=== PATIENT | female | born 1965 | race Caucasian/White ===

== ENCOUNTER 2017-07-11 08:44 | Inpatient (IN) | payer MEDICAID ==
[~2017-07-11] VITALS: Ht 175.3 cm; Wt 86.0 kg
[~2017-07-11 08:44] MED LIST: CYCL-36 PO; SERT-132 PO
[2017-07-11 08:47] VITALS: BP 132/60; PULSE 78; RESP 24; TEMP 97.6; O2SAT 99
[2017-07-11] MEDS ORDERED: SODIUM CHLOR 0.9% 1000 ML INJ 1,000 ML IV SCH (09:09)
[2017-07-11] MEDS ORDERED: PROCHLORPERAZINE INJ 10 MG/2 ML VIAL IV PUSH ONE (09:15)
[2017-07-11] MEDS ORDERED: HYDROmorphone HCL PF 1 MG/ML VIAL IVS ONE (09:15)
--- NOTE | 2017-07-11 09:25 | PD ---
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 Said he had Pet scan in 02/2017 and was in [place] receiving chemotherapy and radiation therapy last in April 2017. Pt move here in May and has not had her appointment with Dr. Kamara yet. Denies any fever, chest pain, sob,dysuria, hematuria, vaginal bleeding or discharge, focal weakness or numbness. Pt is on oxycodone from primary care Dr. Shelli Leonard but pain is not control currently. Pt had C diff in April. No recent antibiotics. PFSH Past Medical History Blood Disorders: No Anxiety: Yes Cancer: No Cardiovascular Problems: Yes High Cholesterol: Yes Chemotherapy: No Diminished Hearing: No Diverticulitis: Yes Endocrine: No Gastrointestinal Disorders: Yes (GERD, DIVERTICULITIS, CHRONIC DIARRHEA) GERD: Yes Genitourinary: Yes Hepatitis: No Hiatal Hernia: No Immune Disorder: No Kidney Stones: Yes ("SLUDGE IN KIDNEYS") Musculoskeletal: No Neurologic: No Respiratory: Yes Radiation Therapy: No Sleep Apnea: Yes Ulcer: No ?: Not : 5 Para: 2 Miscarriage: 0 : 3 Ovarian Cysts: Yes (3 REMOVED FROM RIGHT OVARY) Tubal Ligation: Yes Past Surgical History Abdominal Surgery: Yes (PARTIAL COLECTOMY DUE TO DIVERTICULITIS AND HERNIA REPAIR WITH GB REMOVAL.) AICD: No Appendectomy: No Arteriovenous Shunt: No Cardiac Surgery: No Section: Yes Cholecystectomy: Yes Ear Surgery: No Endocrine Surgery: No Eye Surgery: No Genitourinary Surgery: No Gynecologic Surgery: Yes (LASER LAP - ENDOMETRIOSIS, 3 OVARIAN CYSTS REMOVED) Insulin Pump: No Joint Replacement: No Oral Surgery: No Pacemaker: No Thoracic Surgery: No Social History Alcohol Use: Yes Tobacco Use: Yes Substance Use: No Allergies-Medications (Allergen,Severity, Reaction): Coded Allergies: diatrizoate meglumine (Unverified Allergy, Severe, HIVES, 12/29/16) REACTION TO IV DYE ONLY (PO CAN TOLERATE) gadobenic acid (Unverified Allergy, Severe, HIVES, 12/29/16) REACTION TO IV DYE ONLY (PO CAN TOLERATE) gadodiamide (Unverified Allergy, Severe, HIVES, 12/29/16) REACTION TO IV DYE ONLY (PO CAN TOLERATE) gadoteridol (Unverified Allergy, Severe, HIVES, 12/29/16) REACTION TO IV DYE ONLY (PO CAN TOLERATE) iodixanol (Unverified Allergy, Severe, HIVES, 12/29/16) REACTION TO IV DYE ONLY (PO CAN TOLERATE) iohexol (Unverified Allergy, Severe, HIVES, 12/29/16) REACTION TO IV DYE ONLY (PO CAN TOLERATE) azithromycin (Unverified Allergy, Mild, HIVES, 12/29/16) Reported Meds & Prescriptions Reported Meds & Active Scripts Active Reported Amitiza (Lubiprostone) 24 Mcg Cap 24 Mg PO BID Hydroxyzine HCl 10 Mg Tab 10 Mg PO TID PRN Prochlorperazine Maleate 5 Mg Tab 5 Mg PO Q6H PRN Oxycodone (Oxycodone HCl) 15 Mg Tab 15 Mg PO Q6HR Lorazepam 0.5 Mg Tab 0.5 Mg PO Q8H PRN Nabumetone 750 Mg Tab 750 Mg PO DAILY Calcium 600+D 200 (Calcium Carbonate-Vitamin D) 600-200 Mg-Unit Tab 1 Tab PO BID Oxycontin (Oxycodone HCl) 30 Mg Tab 30 Mg PO Q12HR Review of Systems Except as stated in HPI: all other systems reviewed are Neg Physical Exam Narrative GENERAL: 52yo F in moderate distress. SKIN: Focused skin assessment warm/dry. HEAD: Atraumatic. Normocephalic. EYES: Pupils equal and round. No scleral icterus. No injection or drainage. ENT: No nasal bleeding or discharge. Mucous membranes pink and moist. NECK: Trachea midline. No JVD. CARDIOVASCULAR: Regular rate and rhythm. No murmur appreciated. RESPIRATORY: No accessory muscle use. Clear to auscultation. Breath sounds equal bilaterally. GASTROINTESTINAL: Abdomen soft, diffuse ttp. No rebound tenderness or guarding. MUSCULOSKELETAL: No obvious deformities. No clubbing. No cyanosis. No edema. NEUROLOGICAL: Awake and alert. No obvious cranial nerve deficits. Motor grossly within normal limits. Normal speech. PSYCHIATRIC: Appropriate mood and affect; insight and judgment normal. Data Data Last Documented VS Vital Signs Date Time Temp Pulse Resp B/P (MAP) Pulse Ox O2 Delivery O2 Flow Rate FiO2 07/11/17 08:47 97.6 78 24 132/60 (84) 99 Orders Orders Complete Blood Count With Diff (07/11/17 09:09) Comprehensive Metabolic Panel (07/11/17 09:09) Lipase (07/11/17 09:09) Urinalysis - C+S If Indicated (07/11/17 09:09) Ct Abd/Pel W/O Iv Contrast (07/11/17 09:09) Sodium Chlor 0.9% 1000 Ml Inj (Ns 1000 M (07/11/17 09:09) Prochlorperazine Inj (Compazine Inj) (07/11/17 09:15) C Diff Toxin Pcr (07/11/17 09:17) Hydromorphone Pf Inj (Dilaudid Pf Inj) (07/11/17 09:30) Ciprofloxacin 400 Mg Premix (Cipro 400 M (07/11/17 12:00) Metronidazole 500 Mg Inj (Flagyl 500 Mg (07/11/17 12:00) Labs Laboratory Tests Test 07/11/17 09:10 White Blood Count 5.2 TH/MM3 Red Blood Count 4.15 MIL/MM3 Hemoglobin 12.6 GM/DL Hematocrit 35.9 % Mean Corpuscular Volume 86.6 FL Mean Corpuscular Hemoglobin 30.4 PG Mean Corpuscular Hemoglobin Concent 35.1 % Red Cell Distribution Width 16.2 % Platelet Count 228 TH/MM3 Mean Platelet Volume 7.1 FL Neutrophils (%) (Auto) 73.9 % Lymphocytes (%) (Auto) 16.5 % Monocytes (%) (Auto) 7.7 % Eosinophils (%) (Auto) 1.3 % Basophils (%) (Auto) 0.6 % Neutrophils # (Auto) 3.9 TH/MM3 Lymphocytes # (Auto) 0.9 TH/MM3 Monocytes # (Auto) 0.4 TH/MM3 Eosinophils # (Auto) 0.1 TH/MM3 Basophils # (Auto) 0.0 TH/MM3 CBC Comment DIFF FINAL Differential Comment Blood Urea Nitrogen 10 MG/DL Creatinine 0.62 MG/DL Random Glucose 93 MG/DL Total Protein 6.4 GM/DL Albumin 3.4 GM/DL Calcium Level 8.6 MG/DL Alkaline Phosphatase 60 U/L Aspartate Amino Transf (AST/SGOT) 29 U/L Alanine Aminotransferase (ALT/SGPT) 14 U/L Total Bilirubin 0.5 MG/DL Sodium Level 127 MEQ/L Potassium Level 4.5 MEQ/L Chloride Level 95 MEQ/L Carbon Dioxide Level 25.7 MEQ/L Anion Gap 6 MEQ/L Estimat Glomerular Filtration Rate 101 ML/MIN Lipase 64 U/L MDM Medical Decision Making Medical Screen Exam Complete: Yes Emergency Medical Condition: Yes Differential Diagnosis Metastatic disease vs. obstruction vs. c diff colitis Narrative Course 52yo F with metastatic small cell carcinoma here with abdominal pain, vomiting and diarrhea. Labs reviewed, no leukocytosis. Mild hyponatremia at 127. Lipase low. CT a/p showed mild thickening of descending and sigmoid portions colon which could represent colitis. Pt given cipro and flagyl IV. Pt given dilaudid and compazine. Pt reevaluated at bedside and is still nauseous. Abdominal pain has improved. Pt unable to tolerate PO so will admit for IV antibiotics and IV hydration. Pt given NS IVF. Discussed with Dr. Milligan and accepted to his service. Diagnosis Primary Impression: Colitis Admitting Information Admitting Physician Requests: Marcy Wilder DO Jul 11, 2017 09:25
[2017-07-11] MEDS ORDERED: HYDROmorphone HCL PF 2 MG/ML VIAL IV PUSH ONE (09:30)
[2017-07-11 09:50] LABS: AUTOMATED NEUTROPHIL # 3.9 TH/MM3 (1.8-7.7); BASOPHIL % 0.6 % (0.0-2.0); EOSINOPHIL # 0.1 TH/MM3 (0-0.4); EOSINOPHIL % 1.3 % (0.0-4.0); HEMATOCRIT 35.9 % (35.0-46.0); HEMOGLOBIN 12.6 GM/DL (11.6-15.3); LYMPH % 16.5 % (9.0-44.0); LYMPHOCYTE # 0.9 TH/MM3 (1.0-4.8); MEAN CELL VOLUME 86.6 FL (80.0-100.0); MEAN CORPUSCULAR HEMOGLOBIN 30.4 PG (27.0-34.0); MEAN CORPUSCULAR HGB CONC 35.1 % (32.0-36.0); MEAN PLATELET VOLUME 7.1 FL (7.0-11.0); MONO % 7.7 % (0.0-8.0); MONOCYTE # 0.4 TH/MM3 (0-0.9); NEUT % 73.9 % (16.0-70.0); PLATELET COUNT 228 TH/MM3 (150-450); RED BLOOD COUNT 4.15 MIL/MM3 (4.00-5.30); RED CELL DISTRIBUTION WIDTH 16.2 % (11.6-17.2); WHITE BLOOD COUNT 5.2 TH/MM3 (4.0-11.0)
[2017-07-11 10:09] LABS: ALT (GPT) 14 U/L (10-53)
[2017-07-11 10:11] LABS: ALKALINE PHOSPHATASE 60 U/L (45-117); TOTAL BILIRUBIN ADULT 0.5 MG/DL (0.2-1.0); TOTAL PROTEIN 6.4 GM/DL (6.4-8.2)
[2017-07-11 10:14] LABS: ALBUMIN 3.4 GM/DL (3.4-5.0); AST (GOT) 29 U/L (15-37); BICARBONATE 25.7 MEQ/L (21.0-32.0); BLOOD UREA NITROGEN 10 MG/DL (7-18); CALCIUM 8.6 MG/DL (8.5-10.1); CHLORIDE 95 MEQ/L (98-107); CREATININE 0.62 MG/DL (0.50-1.00); GLOMERULAR FILTRATION RATE 101 ML/MIN (>89); GLUCOSE,RANDOM 93 MG/DL (74-106); SODIUM (NA) 127 MEQ/L (136-145)
--- NOTE | 2017-07-11 10:28 | RADRPT ---
EXAM DATE/TIME: 07/11/2017 09:44 [facility] COMPARISON: CT ABDOMEN & PELVIS W/O CONTRAST, September 06, 2012, 22:22. INDICATIONS : Diffuse abdominal pain and cramping, loose stools. ORAL CONTRAST: No oral contrast ingested. RADIATION DOSE: 12.63 CTDIvol (mGy) MEDICAL HISTORY : Carcinoma, lung. Carcinoma, bone. Cardiovascular disease SURGICAL HISTORY : Cholecystectomy. Tubal ligation. ENCOUNTER: Initial ACUITY: 3 days PAIN SCALE: 8/10 LOCATION: Bilateral abdominal TECHNIQUE: Volumetric scanning of the abdomen and pelvis was performed. Using automated exposure control and ad justment of the mA and/or kV according to patient size, radiation dose was kept as low as reasonably achievable to obtain optimal diagnostic quality images. DICOM format image data is available electro nically for review and comparison. FINDINGS: LOWER LUNGS: The visualized lower lungs are clear. LIVER: Homogeneous density without lesion. There is no dilation of the biliary tree. No calcified gallston es. SPLEEN: Normal size without lesion. PANCREAS: Within normal limits. KIDNEYS: Normal in size and shape. There is no mass, stone, or hydronephrosis. ADRENAL GLANDS: Within normal limits. VASCULAR: There is no aortic aneurysm. BOWEL/MESENTERY: The patient is status post sigmoid colon surgery with a anastomosis sutures seen in the distal sigmoi d colon region. There some mild thickening of the sigmoid colon and descending colon. There are a few scattered colonic diverticula. Incidental note is made of a duodenal diverticulum. ABDOMINAL WALL: There is hernia mesh seen at the anterior abdominal wall in the upper midline and in the right lower quadrant. No hernia seen. RETROPERITONEUM: There is no lymphadenopathy. BLADDER: No wall thickening or mass. REPRODUCTIVE: Within normal limits. INGUINAL: There is no lymphadenopathy or hernia. MUSCULOSKELETAL: There are large areas of sclerosis seen throughout the thoracic and lumbar spine there is a focal or sclerosis in the posterior right ilium. CONCLUSION: 1. Mild thickening of the descending and sigmoid portions colon which could represent colitis. There are a few scattered colonic diverticula in this region. The patient is status post sigmoid colon rese ction. 2. Prominent areas of sclerosis seen throughout the thoracic and lumbar spine. These are nonspecific. Metastatic lesions can be considered. This appears new when compared to the prior CT examination. 3. Status post hernia surgery with mesh in place. Elder Guy MD on July 11, 2017 at 10:18 Board Certified Radiologist. This report was verified electronically.
[2017-07-11] MEDS ORDERED: CALCTAB19 PO (11:59)
[2017-07-11] MEDS ORDERED: LORA0.5T PO ×2 (11:59→16:07)
[2017-07-11] MEDS ORDERED: PROC5TAB PO (11:59)
[2017-07-11] MEDS ORDERED: OXYC30TA62 PO (11:59)
[2017-07-11] MEDS ORDERED: AMIT24CA9 PO (11:59)
[2017-07-11] MEDS ORDERED: OXYC15TA PO (11:59)
[2017-07-11] MEDS ORDERED: NABU1TAB33 PO (11:59)
[2017-07-11] MEDS ORDERED: HYDR-755 PO (11:59)
[2017-07-11] MEDS ORDERED: metroNIDAZOLE 500 MG INJ 100 ML IV ONE (12:00)
[2017-07-11] MEDS ORDERED: CIPROFLOXACIN 400 MG PREMIX 200 ML IV ONE (12:00)
[2017-07-11 12:20] VITALS: BP 132/65; PULSE 82; RESP 17; O2SAT 96
[2017-07-11 12:29] LABS: BILIRUBIN, URINE NEG (NEG); BLOOD, URINE SMALL (NEG); GLUCOSE,URINE NEG (NEG); KETONE, URINE 10 mg/dL (NEG); MUCUS URINE MANY /lpf (OCC); NITRITE,URINE NEG (NEG); SQUAMOUS EPITHELIAL CELL URINE 10 /hpf (0-5); URINE COLOR YELLOW (YELLW/STRAW); URINE LEUKOCYTE ESTERASE NEG (NEG)
[2017-07-11] MEDS ORDERED: MORPHINE SULFATE 2 MG/ML INJ IV PUSH PRN (12:30)
--- NOTE | 2017-07-11 12:36 | HHI.HP ---
[facility] Shelli Leonard MD Admission Diagnosis Colitis, metastatic disease, dehydration Diagnoses: (1) Colitis Diagnosis: Principal (2) Hyponatremia Diagnosis: Principal Chief Complaint: abdominal pain Travel History International Travel<30 Days: No Contact w/Intl Traveler <30 Da: No Traveled to Known Affected Are: No History of Present Illness patient is a 52 y/o female with history of metastatic lung cancer- s/p chemo and radiation, who presented to ER with abdominal pain. she says that the pain started two days ago. pain is moderate to severe in intensity and colicky in nature. pain was associated with nausea, several episodes of emesis and non- bloody diarrhea. there's no report of fever or chills. she says that her pain medications didn't help her at home. she has a first appointment with this Wednesday. Review of Systems Constitutional: DENIES: Fever, Weight loss, Chills, Night Sweats Eyes: DENIES: Blurred vision, Diplopia, Vision loss, Double Vision Ears, nose, mouth, throat: DENIES: Tinnitus, Vertigo, Throat pain, Epistaxis Respiratory: DENIES: Apneas, Cough, Snoring, Wheezing, Hemoptysis, Sputum production, Shortness of breath Cardiovascular: DENIES: Chest pain, Palpitations, Syncope, Dyspnea on Exertion , PND, Lower Extremity Edema, Orthopnea, Claudication Gastrointestinal: COMPLAINS OF: Abdominal pain, Diarrhea, Nausea, Vomiting, DENIES: Black stools, Bloody stools, Constipation, Difficulty Swallowing, Anorexia Genitourinary: DENIES: Urinary frequency, Urgency, Hematuria, Dysuria Musculoskeletal: DENIES: Joint pain, Muscle aches, Stiffness, Joint Swelling Integumentary: DENIES: Rash Neurologic: DENIES: Abnormal gait, Headache, Localized weakness, Paresthesias, Seizures, Speech Problems, Tremor, Poor Balance Psychiatric: DENIES: Anxiety, Confusion, Mood changes, Depression, Hallucinations, Agitation, Suicidal Ideation, Homicidal Ideation, Delusions Past Family Social History Past Medical History metastatic lung cancer. Past Surgical History colon resection/ hernia repair. Reported Medications Amitiza (Lubiprostone) 24 Mcg Cap 24 Mg PO BID Hydroxyzine HCl 10 Mg Tab 10 Mg PO TID PRN Prochlorperazine Maleate 5 Mg Tab 5 Mg PO Q6H PRN Oxycodone (Oxycodone HCl) 15 Mg Tab 15 Mg PO Q6HR Lorazepam 0.5 Mg Tab 0.5 Mg PO Q8H PRN Nabumetone 750 Mg Tab 750 Mg PO DAILY Calcium 600+D 200 (Calcium Carbonate-Vitamin D) 600-200 Mg-Unit Tab 1 Tab PO BID Oxycontin (Oxycodone HCl) 30 Mg Tab 30 Mg PO Q12HR Allergies: Coded Allergies: diatrizoate meglumine (Unverified Allergy, Severe, HIVES, 12/29/16) REACTION TO IV DYE ONLY (PO CAN TOLERATE) gadobenic acid (Unverified Allergy, Severe, HIVES, 12/29/16) REACTION TO IV DYE ONLY (PO CAN TOLERATE) gadodiamide (Unverified Allergy, Severe, HIVES, 12/29/16) REACTION TO IV DYE ONLY (PO CAN TOLERATE) gadoteridol (Unverified Allergy, Severe, HIVES, 12/29/16) REACTION TO IV DYE ONLY (PO CAN TOLERATE) iodixanol (Unverified Allergy, Severe, HIVES, 12/29/16) REACTION TO IV DYE ONLY (PO CAN TOLERATE) iohexol (Unverified Allergy, Severe, HIVES, 12/29/16) REACTION TO IV DYE ONLY (PO CAN TOLERATE) azithromycin (Unverified Allergy, Mild, HIVES, 12/29/16) Active Ordered Medications Inpatient Medications Ciprofloxacin/ Dextrose 200 ml @ 200 mls/hr ONCE ONCE IV Last administered on 07/11/17at 12:15; Start 07/11/17 at 12:00; Stop 07/11/17 at 12:59 Hydromorphone HCl (Dilaudid Pf Inj) 1 mg ONCE ONCE IV PUSH Last administered on 07/11/17at 09:36; Start 07/11/17 at 09:30; Stop 07/11/17 at 09:31; Status DC Metronidazole 100 ml @ 100 mls/hr ONCE ONCE IV ; Start 07/11/17 at 12:00; Stop 07/11/17 at 12:59 Prochlorperazine Edisylate (Compazine Inj) 10 mg ONCE ONCE IV PUSH Last administered on 07/11/17at 09:35; Start 07/11/17 at 09:15; Stop 07/11/17 at 09:16 ; Status DC Sodium Chloride 1,000 ml @ 1,000 mls/hr Q1H IV Last administered on 07/11/17at 09:36; Start 07/11/17 at 09:09; Stop 07/11/17 at 10:08; Status DC Social History smokes half a pack a day- doesn't drink. Physical Exam Vital Signs Vital Signs Date Time Temp Pulse Resp B/P (MAP) Pulse Ox O2 Delivery O2 Flow Rate FiO2 07/11/17 08:47 97.6 78 24 132/60 (84) 99 Physical Exam GENERAL: This is a well-nourished, well-developed patient, in no apparent distress. SKIN: No rashes, ecchymoses or lesions. Cool and dry. HEAD: Atraumatic. Normocephalic. No temporal or scalp tenderness. EYES: Pupils equal round and reactive. Extraocular motions intact. No scleral icterus. No injection or drainage. ENT: Nose without bleeding, purulent drainage or septal hematoma. Throat without erythema, tonsillar hypertrophy or exudate. Uvula midline. Airway patent. NECK: Trachea midline. No JVD or lymphadenopathy. Supple, nontender, no meningeal signs. CARDIOVASCULAR: Regular rate and rhythm without murmurs, gallops, or rubs. RESPIRATORY: Clear to auscultation. Breath sounds equal bilaterally. No wheezes , rales, or rhonchi. GASTROINTESTINAL: Abdomen soft,with generalized tenderness, nondistended. No hepato-splenomegaly, or palpable masses. No guarding. MUSCULOSKELETAL: Extremities without clubbing, cyanosis, or edema. No joint tenderness, effusion, or edema noted. No calf tenderness. Negative Homans sign bilaterally. NEUROLOGICAL: Awake and alert. Cranial nerves II through XII intact. Motor and sensory grossly within normal limits. Five out of 5 muscle strength in all muscle groups. Normal speech. Laboratory Laboratory Tests Test 07/11/17 09:10 07/11/17 12:15 White Blood Count 5.2 Red Blood Count 4.15 Hemoglobin 12.6 Hematocrit 35.9 Mean Corpuscular Volume 86.6 Mean Corpuscular Hemoglobin 30.4 Mean Corpuscular Hemoglobin Concent 35.1 Red Cell Distribution Width 16.2 Platelet Count 228 Mean Platelet Volume 7.1 Neutrophils (%) (Auto) 73.9 Lymphocytes (%) (Auto) 16.5 Monocytes (%) (Auto) 7.7 Eosinophils (%) (Auto) 1.3 Basophils (%) (Auto) 0.6 Neutrophils # (Auto) 3.9 Lymphocytes # (Auto) 0.9 Monocytes # (Auto) 0.4 Eosinophils # (Auto) 0.1 Basophils # (Auto) 0.0 CBC Comment DIFF FINAL Differential Comment Blood Urea Nitrogen 10 Creatinine 0.62 Random Glucose 93 Total Protein 6.4 Albumin 3.4 Calcium Level 8.6 Alkaline Phosphatase 60 Aspartate Amino Transf (AST/SGOT) 29 Alanine Aminotransferase (ALT/SGPT) 14 Total Bilirubin 0.5 Sodium Level 127 Potassium Level 4.5 Chloride Level 95 Carbon Dioxide Level 25.7 Anion Gap 6 Estimat Glomerular Filtration Rate 101 Lipase 64 Result Diagram: 07/11/1710 07/11/1710 Caprini VTE Risk Assessment Caprini VTE Risk Assessment: Mod/High Risk (score >= 2) Caprini Risk Assessment Model Point Value = 1 Point Value = 2 Point Value = 3 Point Value = 5 Age 41-60 Minor surgery BMI > 25 kg/m2 Swollen legs Varicose veins or History of unexplained or recurrent spontaneous Oral contraceptives or hormone replacement Sepsis (< 1 month) Serious lung disease, including pneumonia (< 1 month) Abnormal pulmonary function Acute myocardial infarction Congestive heart failure (< 1 month) History of inflammatory bowel disease Medical patient at bed rest Age 61-74 Arthroscopic surgery Major open surgery (> 45 min) Laparoscopic surgery (> 45 min) Malignancy Confined to bed (> 72 hours) Immobilizing plaster cast Central venous access Age >= 75 History of VTE Family history of VTE Factor V Leiden Prothrombin [id number] Lupus anticoagulant Anticardiolipin antibodies Elevated serum homocysteine Heparin-induced thrombocytopenia Other congenital or acquired thrombophilia Stroke (< 1 month) Elective arthroplasty Hip, pelvis, or leg fracture Acute spinal cord injury (< 1 month) Prophylaxis Regimen Total Risk Factor Score Risk Level Prophylaxis Regimen 0-1 Low Early ambulation 2 Moderate Order ONE of the following: *Sequential Compression Device (SCD) *Heparin 5000 units SQ BID 3-4 Higher Order ONE of the following medications: *Heparin 5000 units SQ TID *Enoxaparin/Lovenox 40 mg SQ daily (WT < 150 kg, CrCl > 30 mL/min) *Enoxaparin/Lovenox 30 mg SQ daily (WT < 150 kg, CrCl > 10-29 mL/min) *Enoxaparin/Lovenox 30 mg SQ BID (WT < 150 kg, CrCl > 30 mL/min) AND/OR *Sequential Compression Device (SCD) 5 or more Highest Order ONE of the following medications: *Heparin 5000 units SQ TID (Preferred with Epidurals) *Enoxaparin/Lovenox 40 mg SQ daily (WT < 150 kg, CrCl > 30 mL/min) *Enoxaparin/Lovenox 30 mg SQ daily (WT < 150 kg, CrCl > 10-29 mL/min) *Enoxaparin/Lovenox 30 mg SQ BID (WT < 150 kg, CrCl > 30 mL/min) AND *Sequential Compression Device (SCD) Assessment and Plan Assessment and Plan A/P - colitis CT of the abdomen with mild thickening of descending and sigmoid colon. start on clear liquid diet and will advance as tolerated- continue with IV antibiotics- C-diff pending. continue supportive care with antiemetics and pain control as needed; switch to IV Morphine; transition to po meds when able to tolerate po. -hyponatremia- due to lung cancer/ emesis continue with IV fluid and monitor the sodium level. -metastatic lung cancer- had chemo and radiation few months ago- has an appointment with this Wednesday. -DVT prophylaxis with subq Lovenox. Discussed Condition With ER physician and the patient. Physician Certification 2 Midnight Certification Type: Admission for Inpatient Services Order for Inpatient Services The services are ordered in accordance with Medicare regulations or non- Medicare payer requirements, as applicable. In the case of services not specified as inpatient-only, they are appropriately provided as inpatient services in accordance with the 2-midnight benchmark. Estimated LOS (days): 2 days is the estimated time the patient will need to remain in the hospital, assuming treatment plan goals are met and no additional complications. Post-Hospital Plan: Home Dinorah Luong MD Jul 11, 2017 12:36
[2017-07-11] MEDS ORDERED: ONDANSETRON HCL 4 MG/2 ML VIAL IV PUSH PRN (12:45)
[2017-07-11] MEDS ORDERED: ACETAMINOPHEN 325 MG TAB PO PRN (13:00)
[2017-07-11] MEDS: SODIUM CHLOR 0.9% 1000 ML INJ 1,000 ML IV SCH ×2 (13:57→23:00)
[2017-07-11 14:41] VITALS: BP 132/76; PULSE 72; RESP 17; O2SAT 96
[2017-07-11 16:00] VITALS: BP 125/60; PULSE 76; RESP 20; TEMP 99.1; O2SAT 96
[2017-07-11] MEDS ORDERED: SODI1TAB PO (16:04)
[2017-07-11] MEDS: HYDROmorphone HCL PF 2 MG/ML VIAL IV PRN ×2 (17:17→20:55)
[2017-07-11 20:00] VITALS: BP 111/64; PULSE 71; RESP 18; TEMP 97.8; O2SAT 97
[2017-07-11] MEDS: metroNIDAZOLE 500 MG INJ 100 ML IV SCH (20:56)
[2017-07-12] VITALS: BP 91/54; PULSE 66; RESP 18; TEMP 97.8; O2SAT 95
[2017-07-12] MEDS ORDERED: CIPROFLOXACIN 400 MG PREMIX 200 ML IV SCH
[2017-07-12] MEDS: HYDROmorphone HCL PF 2 MG/ML VIAL IV PRN ×6 (00:38→23:26)
[2017-07-12] MEDS: metroNIDAZOLE 500 MG INJ 100 ML IV SCH (04:23)
[2017-07-12] MEDS: ENOXAPARIN SODIUM 40 MG/0.4 ML SYRINGE SQ SCH (07:47)
[2017-07-12] MEDS: PROCHLORPERAZINE INJ 10 MG/2 ML VIAL IV PRN (07:50)
[2017-07-12 08:00] VITALS: BP 96/60; PULSE 64; RESP 19; TEMP 97.3; O2SAT 96
[2017-07-12 08:43] LABS: BICARBONATE 21.3 MEQ/L (21.0-32.0); CALCIUM 7.3 MG/DL (8.5-10.1); CREATININE 0.4 MG/DL (0.50-1.00)
[2017-07-12] MEDS: SODIUM CHLOR 0.9% 1000 ML INJ 1,000 ML IV SCH ×3 (09:00→23:57)
[2017-07-12 09:21] LABS: CALCIUM-PROTEIN CORRECTED 8.3 MG/DL (8.5-10.1); TOTAL PROTEIN 5.3 GM/DL (6.4-8.2)
[2017-07-12 10:58] VITALS: O2SAT 95
--- NOTE | 2017-07-12 11:13 | HHI.PR ---
Subjective Remarks in no acute distress. diarrhea is better. abdominal pain has improved. no nausea/ vomiting- tolerated the clear liquid diet. no fever. d/w the RN. Objective Vitals Vital Signs Date Time Temp Pulse Resp B/P (MAP) Pulse Ox O2 Delivery O2 Flow Rate FiO2 07/12/17 10:58 95 07/12/17 08:15 17 07/12/17 08:00 97.3 64 19 96/60 (72) 96 07/12/17 00:00 97.8 66 18 91/54 (66) 95 07/11/17 20:00 97.8 71 18 111/64 (80) 97 07/11/17 16:00 99.1 76 20 125/60 (81) 96 07/11/17 15:06 07/11/17 14:41 72 17 132/76 (94) 96 Room Air 07/11/17 12:20 82 17 132/65 (87) 96 Room Air I/O 07/11/17 07/11/17 07/11/17 07/12/17 07/12/17 07/12/17 07:00 15:00 23:00 07:00 15:00 23:00 Intake Total 1200 ml 100 ml 300 ml Balance 1200 ml 100 ml 300 ml Intake IV Total 1200 ml 100 ml 300 ml Result Diagram: 07/11/17 0910 07/12/17 0730 Imaging Last Impressions Abdomen/Pelvis CT 07/11/17 0909 Signed Impressions: Service Date/Time: Tuesday, July 11, 2017 09:44 - CONCLUSION: 1. Mild thickening of the descending and sigmoid portions colon which could represent colitis. There are a few scattered colonic diverticula in this region. The patient is status post sigmoid colon resection. 2. Prominent areas of sclerosis seen throughout the thoracic and lumbar spine. These are nonspecific. Metastatic lesions can be considered. This appears new when compared to the prior CT examination. 3. Status post hernia surgery with mesh in place. Elder Guy MD Objective Remarks GENERAL: This is a well-nourished, well-developed patient, in no apparent distress. CARDIOVASCULAR: Regular rate and regular rhythm without murmurs, gallops, or rubs. RESPIRATORY: Clear to auscultation. Breath sounds equal bilaterally. No wheezes , rales, or rhonchi. GASTROINTESTINAL: Abdomen soft, non-tender, nondistended. Normal, active bowel sounds MUSCULOSKELETAL: Extremities without clubbing, cyanosis, or edema. NEURO: Alert & Oriented x4 to person, place, time, situation. Moves all ext x4 Medications and IVs Inpatient Medications Acetaminophen (Tylenol) 650 mg Q4H PRN PO FEVER; Start 07/11/17 at 13:00 Ciprofloxacin/ Dextrose 200 ml @ 200 mls/hr Q12H IV Last administered on at 00:38; Start 07/12/17 at 00:00 Enoxaparin Sodium (Lovenox Inj) 40 mg Q24H SQ Last administered on 07/12/17at 07 :47; Start 07/12/17 at 09:00 Hydromorphone HCl (Dilaudid Pf Inj) 1 mg Q3H PRN IV PAIN 1-10 Last administered on 07/12/17at 10:59; Start 07/11/17 at 15:30 Lorazepam (Ativan) 0.5 mg Q8H PRN PO ANXIETY; Start 07/11/17 at 12:30 Metronidazole 100 ml @ 100 mls/hr Q8H IV Last administered on 07/12/17at 04:23 ; Start 07/11/17 at 21:00 Morphine Sulfate (Morphine Inj) 2 mg Q3H PRN IV PUSH PAIN 1-10; Start 07/11/17 at 12:30; Stop 07/11/17 at 15:19; Status DC Ondansetron HCl (Zofran Inj) 4 mg Q8H PRN IV PUSH NAUSEA; Start 07/11/17 at 12: 45; Stop 07/11/17 at 15:20; Status DC Prochlorperazine Edisylate (Compazine Inj) 10 mg Q8H PRN IV NAUSEA Last administered on 07/12/17at 07:50; Start 07/11/17 at 15:30 Sodium Chloride 1,000 ml @ 100 mls/hr Q10H IV Last administered on 07/11/17at 23:00; Start 07/11/17 at 13:00 A/P Problem List: (1) Colitis ICD Code: K52.9 - Noninfective gastroenteritis and colitis, unspecified Status: Acute (2) Hyponatremia ICD Code: E87.1 - Hypo-osmolality and hyponatremia Assessment and Plan A/P - C-diff colitis CT of the abdomen with mild thickening of descending and sigmoid colon. advance to full liquid- will start on po Vancomycin. continue supportive care with antiemetics and pain control as needed. -hyponatremia- due to lung cancer/ emesis continue with IV fluid and monitor the sodium level. -metastatic lung cancer- had chemo and radiation few months ago- has an appointment with this Wednesday. d/w today; will consult Oncology. -DVT prophylaxis with subq Lovenox. Discharge Planning dc home within the next 24-48 hrs if stable/ with improved sodium level- and after evaluated by Oncology. Dinorah Luong MD Jul 12, 2017 11:13
[2017-07-12] MEDS ORDERED: VANCOMYCIN 500 MG VIAL (FOR ORAL USE ONLY) PO SCH (11:15)
[2017-07-12 12:00] VITALS: BP 101/55; PULSE 60; RESP 18; TEMP 96.9; O2SAT 96
[2017-07-12] MEDS: oxyCODONE HCL 10 MG CONTROLLED RELEASE TAB PO SCH ×2 (12:20→23:57)
[2017-07-12] MEDS: VANCOMYCIN 25 MG/ML SUSP 100 ML BOTTLE PO SCH ×3 (14:05→19:37)
[2017-07-12 16:00] VITALS: BP 111/59; PULSE 64; RESP 18; TEMP 97.8; O2SAT 98
[2017-07-12 20:00] VITALS: BP 129/72; PULSE 72; RESP 18; TEMP 97.9; O2SAT 99
[2017-07-13] VITALS: BP 142/70; PULSE 71; RESP 20; TEMP 97.9; O2SAT 98
[2017-07-13] MEDS: HYDROmorphone HCL PF 2 MG/ML VIAL IV PRN ×5 (04:20→23:02)
[2017-07-13] MEDS: PROCHLORPERAZINE INJ 10 MG/2 ML VIAL IV PRN (04:24)
[2017-07-13 08:00] VITALS: BP 98/53; PULSE 66; RESP 19; TEMP 96.2; O2SAT 95
[2017-07-13 08:07] LABS: BICARBONATE 23.1 MEQ/L (21.0-32.0); CALCIUM 7.8 MG/DL (8.5-10.1); CREATININE 0.39 MG/DL (0.50-1.00)
[2017-07-13] MEDS: VANCOMYCIN 25 MG/ML SUSP 100 ML BOTTLE PO SCH ×4 (09:38→20:09)
[2017-07-13] MEDS: ENOXAPARIN SODIUM 40 MG/0.4 ML SYRINGE SQ SCH (09:38)
[2017-07-13] MEDS ORDERED: diphenhydrAMINE HCL 50 MG CAP PO ONE ×2 (09:45→12:45)
--- NOTE | 2017-07-13 11:16 | MB ---
cc: Tayo Kamara MD, Leslie D MD DATE OF CONSULT: 07/13/2017 PRIMARY CARE PHYSICIAN: Shelli Leonard MD, in [place]. REASON FOR CONSULTATION: Patient with a diagnosis of metastatic small cell carcinoma of lung primary (extensive stage). Initially diagnosed in 02/2017 while the patient was still living in [place], [place]. TREATMENT HISTORY TO DATE: Patient is status post 3 cycles of cisplatin/etoposide (chemotherapy delivered in February, March, and 04/2017). Patient has also been on monthly Xgeva injections. She received palliative radiation to her hips bilaterally for management of symptomatic bony metastases. CHIEF COMPLAINT: Ms. Moncada reports having had diarrhea for the past 1 week. She presented to [facility] on 07/11/2017 for further workup and management. ADDITIONAL COMPLAINTS: Include pain in her left shoulder, inability to lift her left arm. She reports back pain, rib pain and hip pain as well. HISTORY OF PRESENT ILLNESS: Ms. Moncada is a very pleasant 52-year-old female with a 40+ pack-year history of smoking. Ms. Moncada, who is originally from [facility], had recently relocated to [place], [place], in the summer of 2016 to be with a male medical assistant ob gyn. While up in [place], she began to notice chronic cough, and eventually, the cough began to produce blood-tinged sputum. She presented to a hospital in [place], [place], in 02/2017 and underwent imaging studies. She was found to have a mass involving her right lung. Further imaging studies including PET CT scan revealed diffuse hypermetabolic activity involving the vertebral bodies, as well as her hips. The primary tumor in the right lung was hypermetabolic as well. Image-guided biopsy of one of the bony lesions revealed findings consistent with small cell carcinoma of lung primary. The patient reports undergoing imaging studies of the brain to complete the staging workup, and at initial diagnosis in 02/2017, she had no evidence of brain metastases. She was treated with above-outlined systemic chemotherapeutic regimen and received palliative radiation to her hips. The patient chose to relocate to [place] in early 05/2017. She was awaiting outpatient oncology evaluation when she presented to this hospital. In fact, this patient was scheduled to see me later this morning at [facility]. Additional noteworthy medical comorbid conditions include C. diff colitis, which was diagnosed in [place] and treated in the fall of 2016. PAST MEDICAL HISTORY: 1. Metastatic small cell carcinoma of the lung. 2. Fibromyalgia. 3. Tobaccoism. 4. Bony metastases. 5. Gestational diabetes. 6. Diverticulitis. 7. History of C. diff colitis. PAST SURGICAL HISTORY: 1. Cholecystectomy. 2. . 3. Hernia repair (ventral). 4. In 2007 colon resection. 5. Infusion port placement. 6. Image-guided biopsy of bone lesion. FAMILY HISTORY: Father of metastatic prostate cancer at the age of 60. Mom of complications of stroke. No known oncologic diagnoses noted. HEALTH MAINTENANCE: 1. Most recent mammogram was about 3 years ago. 2. Most recent colonoscopy was about 8 years ago. SOCIAL HISTORY: Patient lives at home alone. She has 2 children aged 18 and 24. She presently lives with one of her friends. She is on disability. 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 GYNECOLOGIC HISTORY: 5, para 2 (she had 3 abortions and 2 live births). ALLERGIES: MORPHINE, ZOFRAN, CODEINE AND CT CONTRAST MEDIUM. CURRENT INPATIENT MEDICATIONS: 1. Vancomycin 125 mg p.o. q.i.d. 2. Oxycodone 30 mg p.o. q.12 hours (long-acting). 3. Lorazepam 0.5 mg p.o. q.8 hours as needed for anxiety. 4. Dilaudid 1 mg IV q.4 hours as needed for pain. 5. Lovenox 40 mg subcutaneous q.24 hours. 6. Normal saline 100 mL/hour. REVIEW OF SYSTEMS: A 13-point review of systems are obtained. The following are the pertinent positives and negatives: CONSTITUTIONAL: Ms. Moncada reports fatigue, weakness. She denies fevers or chills. HEENT: Reports headaches. She denies blurry vision, difficulty swallowing, soreness in the throat or nosebleeds. RESPIRATORY: She reports difficulty breathing with exertion. She denies hemoptysis. She denies throat or chest pain. CARDIOVASCULAR: Denies angina-like chest pain, PND, orthopnea. She denies lower extremity edema. GASTROINTESTINAL: Denies nausea, vomiting, abdominal pain, but she does report diarrhea. She denies hematochezia or melena. URINARY AND GENITAL: No complaints. CENTRAL NERVOUS SYSTEM: Denies any focal sensory or motor deficits. SKIN: No suspect lesions reported. MUSCULOSKELETAL: She reports pain in her shoulders, back, ribs, and hips. No other complaints reports. PHYSICAL EXAMINATION: VITAL SIGNS: Temperature 96.2 degrees Fahrenheit, heart rate 66 beats per minute. Respiratory rate is 19. Blood pressure is 98/53. O2 sats are 95% on room air. GENERAL APPEARANCE: Ms. Moncada is a middle-aged lady. She is sitting up in bed. She appears to be in no acute distress. She has some alopecia of chemotherapy. HEENT: Head is atraumatic, normocephalic. Conjunctivae are pale. Sclerae are anicteric. EOMI. PERRLA. Oral exam: No pharyngeal erythema. NECK: No palpable cervical or supraclavicular lymphadenopathy. RESPIRATORY: Good air movement bilaterally over the upper, middle and lower lung zones with prolonged expiratory phase, occasional/scattered rhonchi. CARDIOVASCULAR: Regular rate and rhythm, S1, S2. No obvious murmurs, rubs, gallops. ABDOMEN: Protuberant belly, soft and nontender, nondistended. No palpable organ enlargement. LOWER EXTREMITIES: No pretibial edema. No calf tenderness. CENTRAL NERVOUS SYSTEM: No focal sensory or motor deficits. MUSCULOSKELETAL: She reports some tenderness on her left shoulder. No edema noted. LABORATORY FINDINGS: Blood work dated 07/11/2017: WBC count 5.2, hemoglobin 12.6 g/dL, hematocrit 36%, platelet count 228. Absolute neutrophil count is 3.9. Chemistries: Sodium 126, potassium 3.6, chloride 96. Bicarbonate is 23, BUN 3, creatinine 0.4. EGFR is 172. Random glucose 83. Calcium 7.8. Total bilirubin 0.5, AST 29, ALP 14, alkaline phosphatase 60, albumin 3.4. TSH is 0.75. IMAGING STUDIES: CT scan of the abdomen and pelvis without IV contrast reveals mild thickening of the descending and sigmoid portions of the colon, which could represent colitis. There are a few scattered colonic diverticula in this region. She appears to have a partial colonic resection performed in the past. There are prominent areas of sclerosis seen throughout the thoracic and lumbar spine. These are not specific; however, metastatic lesions can be considered. Status post hernia surgery with mesh in place. MICROBIOLOGY: Stool studies are positive for C. diff colitis toxin PCR. ASSESSMENT: Ms. Moncada is a very pleasant 52-year-old female who was diagnosed with metastatic small cell carcinoma of lung primary in 02/2017; she was living in [place], [place]. Her treatment has consisted of 3 cycles of cisplatin and etoposide and palliative radiation to symptomatic bony metastases involving her pelvic bones and hips. She does have pathologic confirmation of metastatic disease to her bones. This patient relocated back to [place] from [place] in 05/2017 and was awaiting outpatient oncology consultation for resumption of systemic therapy. She was admitted to this hospital with symptoms of diarrhea. She was found to have stool positive for Clostridium difficile colitis and has been initiated on therapy. The patient tells me this has been her second episode of Clostridium difficile colitis over the past 4 months. I have been asked to her to help facilitate transition of care to the outpatient setting and resumption of palliative systemic therapy. RECOMMENDATIONS: 1. Metastatic small cell carcinoma of lung primary: I have requested an outpatient followup at the time of discharge. I would like her to undergo restaging studies with a PET CT scan at discharge, along with restaging imaging of the brain to assess for intracranial metastases. 2. I will likely transition her from the cisplatin and etoposide to carboplatin and etoposide because carboplatin has a more favorable toxicity profile and is essentially as effective as cisplatin in this setting. 3. She will be resumed on Xgeva or Zometa for management for bony metastases to help reduce the risk of pathologic fractures. 4. C. diff colitis: Agree with oral vancomycin. MD MICHELLE Nassar/KELECHI , 09:19 AM , 11:14 AM
[2017-07-13] MEDS: oxyCODONE HCL 10 MG CONTROLLED RELEASE TAB PO SCH (11:55)
[2017-07-13 12:00] VITALS: BP 119/64; PULSE 61; RESP 19; TEMP 97.4; O2SAT 99
--- NOTE | 2017-07-13 13:40 | RADRPT ---
EXAM DATE/TIME: 07/13/2017 10:50 [facility] COMPARISON: No previous studies available for comparison. INDICATIONS : Left arm swelling. MEDICAL HISTORY : Hypercholesterolemia. Diverticulitis. Gastroesophageal reflux disease. Clostridium Difficile. Kidney stones. Urinary tract infection. Liver disease. Anxiety. SURGICAL HISTORY : Tubal ligation. Ovarian cysts removed. Colon resection. ENCOUNTER: Initial ACUITY: 1 day PAIN SCORE: 3/10 LOCATION: Left arm. FINDINGS: There is spontaneous flow documented in the brachial, basilic, cephalic, axillary, and subclavian vei ns. The vessels are compressible and augmentation response is documented. No filling defects are se en. The flow is phasic with respiration. Direction of flow in the jugular vein is caudal. There is a slight less than 4 cm x 6-7 mm (long axis by short axis) lenticular collection in the ante rior left shoulder soft tissues which may be hematoma or complex bursal collection. This could be fur ther evaluated with MRI if clinically indicated. CONCLUSION: No evidence of left arm DVT Complex lenticular collection in the soft tissues of the anterior left shoulder region Elder Arndt MD on July 13, 2017 at 13:36 Board Certified Radiologist. This report was verified electronically.
--- NOTE | 2017-07-13 13:57 | HHI.PR ---
Subjective Remarks Follow-up C. difficile colitis 07/13/17-patient seen and examined, denies any diarrheal episode 2 days. Would like her diet advanced to more solid 1. Seen this morning by medical oncology. Objective Vitals Vital Signs Date Time Temp Pulse Resp B/P (MAP) Pulse Ox O2 Delivery O2 Flow Rate FiO2 07/13/17 12:00 97.4 61 19 119/64 (82) 99 07/13/17 08:00 96.2 66 19 98/53 (68) 95 07/13/17 04:50 18 07/13/17 00:57 18 07/13/17 00:00 97.9 71 20 142/70 (94) 98 07/12/17 20:00 97.9 72 18 129/72 (91) 99 07/12/17 16:00 97.8 64 18 111/59 (76) 98 I/O 07/12/17 07/12/17 07/12/17 07/13/17 07/13/17 07/13/17 07:00 15:00 23:00 07:00 15:00 23:00 Intake Total 300 ml 680 ml 1480 ml Output Total 4 ml Balance 300 ml 676 ml 1480 ml Intake Oral 680 ml 480 ml IV Total 300 ml 1000 ml Output Urine Total 4 ml # Voids 2 # Bowel Movements 0 Result Diagram: 07/11/1710 07/13/17 0559 Imaging Last Impressions Abdomen/Pelvis CT 07/11/17 0909 Signed Impressions: Service Date/Time: Tuesday, July 11, 2017 09:44 - CONCLUSION: 1. Mild thickening of the descending and sigmoid portions colon which could represent colitis. There are a few scattered colonic diverticula in this region. The patient is status post sigmoid colon resection. 2. Prominent areas of sclerosis seen throughout the thoracic and lumbar spine. These are nonspecific. Metastatic lesions can be considered. This appears new when compared to the prior CT examination. 3. Status post hernia surgery with mesh in place. Elder Guy MD Objective Remarks GENERAL: NAD SKIN: Warm and dry. HEAD: Normocephalic. EYES: No scleral icterus. No injection or drainage. NECK: Supple, trachea midline. No JVD or lymphadenopathy. CARDIOVASCULAR: Regular rate and rhythm without murmurs, gallops, or rubs. RESPIRATORY: Breath sounds equal bilaterally. No accessory muscle use. GASTROINTESTINAL: Abdomen soft, non-tender, nondistended. MUSCULOSKELETAL: No cyanosis, or edema. BACK: Nontender without obvious deformity. No CVA tenderness. A/P Problem List: (1) C. difficile colitis ICD Code: A04.72 - Enterocolitis due to Clostridium difficile, not specified as recurrent (2) Colitis ICD Code: K52.9 - Noninfective gastroenteritis and colitis, unspecified Status: Acute (3) Hyponatremia ICD Code: E87.1 - Hypo-osmolality and hyponatremia (4) Breast cancer ICD Code: C50.919 - Malignant neoplasm of unspecified site of unspecified female breast Assessment and Plan 52-year-old female with - C-diff colitis CT of the abdomen with mild thickening of descending and sigmoid colon. Currently on PO Vancomycin. continue supportive care with antiemetics and pain control as needed. -Hypotonic Hyponatremia- due to lung cancer/ emesis continue with IV fluid and monitor the sodium level. -Metastatic lung cancer Appreciate input from medical oncology Brain MRI pending -DVT prophylaxis with subq Lovenox. Joni Brown MD Jul 13, 2017 13:57
[2017-07-13] MEDS ORDERED: hydrOXYzine HCL 10 MG TAB PO PRN (14:00)
[2017-07-13] MEDS: SODIUM CHLOR 0.9% 1000 ML INJ 1,000 ML IV SCH (14:49)
[2017-07-13 16:00] VITALS: BP 123/68; PULSE 67; RESP 19; TEMP 97.1; O2SAT 99
[2017-07-13] MEDS: LORazepam 0.5 MG TAB PO PRN (17:06)
[2017-07-13 17:41] VITALS: O2SAT 99
[2017-07-13] MEDS ORDERED: GADODIAMIDE PF 287 MG/ML 5 ML VIAL (for RAD MRI) IV PUSH ONE (17:56)
--- NOTE | 2017-07-13 18:35 | RADRPT ---
EXAM DATE/TIME: 07/13/2017 17:46 [facility] COMPARISON: No previous studies available for comparison. INDICATIONS : Metastatic disease. CONTRAST: 17 cc Omniscan (gadodiamide) IV MEDICAL HISTORY : Carcinoma, lung. Metastatic disease. SURGICAL HISTORY : Colon resection. section. Cholecystectomy. Hernia. ENCOUNTER: Subsequent ACUITY: 1 day PAIN SCORE: 5/10 LOCATION: cranial TECHNIQUE: Multiplanar, multisequence MRI of the brain was performed both prior to and following the administrat ion of paramagnetic contrast. FINDINGS: MRI of the brain is performed in sagittal, axial and coronal planes. The craniocervical junction and midline structures are unremarkable. Diffusion weighted images demonstrate small punctate areas of T2 shine through involving the cerebellar vermis, middle cerebellar peduncle in the periventricular whi te matter on the right. There is no evidence of acute cortical infarction, acute hemorrhage, mass eff ect or midline shift is seen. Posterior fossa structures are unremarkable. CONCLUSION: Probable small areas of white matter infarction as above. No evidence of metastatic disease. Manpreet Loera MD on July 13, 2017 at 18:28 Board Certified Radiologist. This report was verified electronically.
[2017-07-13 20:00] VITALS: BP 130/69; PULSE 71; RESP 20; TEMP 98.4; O2SAT 96
[2017-07-14] VITALS: BP 125/78; PULSE 72; RESP 20; TEMP 98.7; O2SAT 95
[2017-07-14] MEDS: oxyCODONE HCL 10 MG CONTROLLED RELEASE TAB PO SCH (00:40)
[2017-07-14] MEDS: SODIUM CHLOR 0.9% 1000 ML INJ 1,000 ML IV SCH ×2 (00:43→09:07)
[2017-07-14] MEDS: LORazepam 0.5 MG TAB PO PRN (00:45)
[2017-07-14] MEDS: HYDROmorphone HCL PF 2 MG/ML VIAL IV PRN ×2 (03:26→07:11)
[2017-07-14] MEDS: PROCHLORPERAZINE INJ 10 MG/2 ML VIAL IV PRN (03:26)
[2017-07-14 08:00] VITALS: BP 93/55; PULSE 55; RESP 16; TEMP 97.9; O2SAT 95
[2017-07-14 08:44] LABS: BICARBONATE 24.8 MEQ/L (21.0-32.0); CREATININE 0.45 MG/DL (0.50-1.00)
[2017-07-14] MEDS ORDERED: SODIUM CHLORIDE 1 GRAM TAB PO SCH (09:00)
[2017-07-14] MEDS: ENOXAPARIN SODIUM 40 MG/0.4 ML SYRINGE SQ SCH (09:09)
[2017-07-14] MEDS: VANCOMYCIN 25 MG/ML SUSP 100 ML BOTTLE PO SCH (09:09)
[2017-07-14] MEDS ORDERED: VANC1CAP6 PO ×2 (11:45)
--- NOTE | 2017-07-14 12:31 | HHI.PR ---
Subjective Remarks Follow-up C. difficile colitis 07/13/17-patient seen and examined, denies any diarrheal episode 2 days. Would like her diet advanced to more solid 1. Seen this morning by medical oncology. 07/14/17-patient seen and examined, denies any abdominal pain, no diarrhea 3 days. Brain MRI report discussed with patient and no acute finding. Case discussed with oncology. Objective Vitals Vital Signs Date Time Temp Pulse Resp B/P (MAP) Pulse Ox O2 Delivery O2 Flow Rate FiO2 07/14/17 08:00 97.9 55 16 93/55 (68) 95 07/14/17 00:00 98.7 72 20 125/78 (94) 95 07/13/17 20:00 98.4 71 20 130/69 (89) 96 07/13/17 17:41 99 21 07/13/17 16:00 97.1 67 19 123/68 (86) 99 I/O 07/13/17 07/13/17 07/13/17 07/14/17 07/14/17 07/14/17 07:00 15:00 23:00 07:00 15:00 23:00 Intake Total 1480 ml 1000 ml 1554 ml 856 ml 200 ml Balance 1480 ml 1000 ml 1554 ml 856 ml 200 ml Intake Oral 480 ml 1050 ml 360 ml IV Total 1000 ml 1000 ml 504 ml 496 ml 200 ml # Voids 2 8 2 # Bowel Movements 0 2 0 Result Diagram: 07/11/17 0910 07/14/17 0729 Imaging Last Impressions Upper Extremity Ultrasound 07/13/17 0000 Signed Impressions: Service Date/Time: Thursday, July 13, 2017 10:50 - CONCLUSION: No evidence of left arm DVT Complex lenticular collection in the soft tissues of the anterior left shoulder region Elder Arndt MD Brain MRI 07/13/17 0000 Signed Impressions: Service Date/Time: Thursday, July 13, 2017 17:46 - CONCLUSION: Probable small areas of white matter infarction as above. No evidence of metastatic disease. Manpreet Loera MD Abdomen/Pelvis CT 07/11/17 0909 Signed Impressions: Service Date/Time: Tuesday, July 11, 2017 09:44 - CONCLUSION: 1. Mild thickening of the descending and sigmoid portions colon which could represent colitis. There are a few scattered colonic diverticula in this region. The patient is status post sigmoid colon resection. 2. Prominent areas of sclerosis seen throughout the thoracic and lumbar spine. These are nonspecific. Metastatic lesions can be considered. This appears new when compared to the prior CT examination. 3. Status post hernia surgery with mesh in place. Elder Guy MD Objective Remarks GENERAL: NAD SKIN: Warm and dry. HEAD: Normocephalic. EYES: No scleral icterus. No injection or drainage. NECK: Supple, trachea midline. No JVD or lymphadenopathy. CARDIOVASCULAR: Regular rate and rhythm without murmurs, gallops, or rubs. RESPIRATORY: Breath sounds equal bilaterally. No accessory muscle use. GASTROINTESTINAL: Abdomen soft, non-tender, nondistended. MUSCULOSKELETAL: No cyanosis, or edema. BACK: Nontender without obvious deformity. No CVA tenderness. Procedures none A/P Problem List: (1) C. difficile colitis ICD Code: A04.72 - Enterocolitis due to Clostridium difficile, not specified as recurrent (2) Colitis ICD Code: K52.9 - Noninfective gastroenteritis and colitis, unspecified Status: Acute (3) Hyponatremia ICD Code: E87.1 - Hypo-osmolality and hyponatremia (4) Breast cancer ICD Code: C50.919 - Malignant neoplasm of unspecified site of unspecified female breast Assessment and Plan 52-year-old female with - C-diff colitis CT of the abdomen with mild thickening of descending and sigmoid colon. Currently on PO Vancomycin. continue supportive care with antiemetics and pain control as needed. -Hypotonic Hyponatremia- due to lung cancer/ emesis continue with IV fluid and monitor the sodium level. -Metastatic lung cancer Appreciate input from medical oncology. Patient will need outpatient follow- up with oncology to resume chemotherapy next week Brain MRI noted and review -DVT prophylaxis with subq Lovenox. Joni Brown MD Jul 14, 2017 12:30
--- NOTE | 2017-07-14 12:32 | HHI.DS ---
Discharge Summary Admission Date Jul 11, 2017 at 12:27 Discharge Date: Jul 14, 2017 Admitting Diagnosis Colitis, metastatic disease, dehydration (1) C. difficile colitis ICD Code: A04.72 - Enterocolitis due to Clostridium difficile, not specified as recurrent (2) Colitis ICD Code: K52.9 - Noninfective gastroenteritis and colitis, unspecified Status: Acute (3) Hyponatremia ICD Code: E87.1 - Hypo-osmolality and hyponatremia (4) Breast cancer ICD Code: C50.919 - Malignant neoplasm of unspecified site of unspecified female breast Procedures none Brief History - From Admission patient is a 52 y/o female with history of metastatic lung cancer- s/p chemo and radiation, who presented to ER with abdominal pain. she says that the pain started two days ago. pain is moderate to severe in intensity and colicky in nature. pain was associated with nausea, several episodes of emesis and non- bloody diarrhea. there's no report of fever or chills. she says that her pain medications didn't help her at home. she has a first appointment with this Wednesday. CBC/BMP: 07/11/17 0910 07/14/17 0729 Significant Findings Laboratory Tests Test 07/11/17 16:13 07/12/17 07:30 07/12/17 14:20 07/13/17 05:59 Stool C. difficile Toxin (PCR) POSITIVE (NEGATIVE) Blood Urea Nitrogen 5 MG/DL (7-18) 3 MG/DL (7-18) Creatinine 0.40 MG/DL (0.50-1.00) 0.39 MG/DL (0.50-1.00) Total Protein 5.3 GM/DL (6.4-8.2) Calcium Level 7.3 MG/DL (8.5-10.1) 7.8 MG/DL (8.5-10.1) Sodium Level 125 MEQ/L (136-145) 126 MEQ/L (136-145) Chloride Level 95 MEQ/L (98-107) 96 MEQ/L (98-107) Serum Osmolality 255 MOSM/KG (275-295) Protein Corrected Calcium 8.3 MG/DL (8.5-10.1) Test 07/14/17 07:29 Blood Urea Nitrogen 4 MG/DL (7-18) Creatinine 0.45 MG/DL (0.50-1.00) Calcium Level 8.0 MG/DL (8.5-10.1) Sodium Level 127 MEQ/L (136-145) Chloride Level 95 MEQ/L (98-107) Imaging Last Impressions Upper Extremity Ultrasound 07/13/17 0000 Signed Impressions: Service Date/Time: Thursday, July 13, 2017 10:50 - CONCLUSION: No evidence of left arm DVT Complex lenticular collection in the soft tissues of the anterior left shoulder region Elder Arndt MD Brain MRI 07/13/17 0000 Signed Impressions: Service Date/Time: Thursday, July 13, 2017 17:46 - CONCLUSION: Probable small areas of white matter infarction as above. No evidence of metastatic disease. Manpreet Loera MD Abdomen/Pelvis CT 07/11/17 0909 Signed Impressions: Service Date/Time: Tuesday, July 11, 2017 09:44 - CONCLUSION: 1. Mild thickening of the descending and sigmoid portions colon which could represent colitis. There are a few scattered colonic diverticula in this region. The patient is status post sigmoid colon resection. 2. Prominent areas of sclerosis seen throughout the thoracic and lumbar spine. These are nonspecific. Metastatic lesions can be considered. This appears new when compared to the prior CT examination. 3. Status post hernia surgery with mesh in place. Elder Guy MD PE at Discharge GENERAL: NAD SKIN: Warm and dry. HEAD: Normocephalic. EYES: No scleral icterus. No injection or drainage. NECK: Supple, trachea midline. No JVD or lymphadenopathy. CARDIOVASCULAR: Regular rate and rhythm without murmurs, gallops, or rubs. RESPIRATORY: Breath sounds equal bilaterally. No accessory muscle use. GASTROINTESTINAL: Abdomen soft, non-tender, nondistended. MUSCULOSKELETAL: No cyanosis, or edema. BACK: Nontender without obvious deformity. No CVA tenderness. Hospital Course While in hospital, patient was treated for - C-diff colitis CT of the abdomen with mild thickening of descending and sigmoid colon. She was started on PO Vancomycin and she will be discharged on tapered dose. Treated with supportive care with antiemetics and pain control as needed. -Hypotonic Hyponatremia- due to lung cancer/ emesis Improved with IV fluid as well as sodium tablet -Metastatic lung cancer Appreciate input from medical oncology. Patient will need outpatient follow- up with oncology to resume chemotherapy next week Brain MRI noted and review and no evidence of metastasis disease -DVT prophylaxis with subq Lovenox. Pt Condition on Discharge: Good Discharge Disposition: Discharge Home Discharge Time: <= 30 minutes Discharge Instructions DIET: Follow Instructions for: As Tolerated, No Restrictions Activities you can perform: Regular-No Restrictions Follow up Referrals: Oncology - 1 Week PCP Follow-up - 1 Week New Medications: Vancomycin (Vancocin) 125 Mg Cap 125 MG PO QID for Infection, #28 CAP 0 Refills Vancomycin (Vancocin) 125 Mg Cap 125 MG PO BID for Infection, #14 CAP 0 Refills Continued Medications: Calcium Carbonate-Vitamin D (Calcium 600+D 200) 600-200 Mg-Unit Tab 1 TAB PO BID for Nutritional Supplement, TAB 0 Refills Hydroxyzine HCl (Hydroxyzine HCl) 10 Mg Tab 10 MG PO TID PRN for itching, TAB 0 Refills Lorazepam (Lorazepam) 0.5 Mg Tab 0.5 MG PO Q8H PRN for ANXIETY, TAB 0 Refills Lubiprostone (Amitiza) 24 Mcg Cap 24 MG PO BID for Constipation, CAP 0 Refills Nabumetone (Nabumetone) 750 Mg Tab 750 MG PO DAILY for Pain-Inflammation, #60 TAB 0 Refills Oxycodone (Oxycodone) 15 Mg Tab 15 MG PO Q6HR for Pain Management, TAB 0 Refills Oxycodone ER (Oxycontin) 30 Mg Tab 30 MG PO Q12HR for Pain Management, TAB 0 Refills Prochlorperazine Maleate (Prochlorperazine Maleate) 5 Mg Tab 5 MG PO Q6H PRN for NAUSEA OR VOMITING, TAB 0 Refills Sodium Chloride (Sodium Chloride) 1 Gram Tab 1 GM PO DAILY for Electrolyte Replacement, TAB 0 Refills Joni Brown MD Jul 14, 2017 12:32
== END 2017-07-14 11:41 | disposition home or self-care (01) | DRG 372 ==
LOC: NEPE 08:44 → NEDA 12:12 → OBSVTOIN 12:27 → N07A 15:05
PROVIDERS: ADMIT Hospitalist; ATTEND Hospitalist
DX: A04.71 Enterocolitis due to Clostridium difficile, recurrent (principal); E87.1 Hypo-osmolality and hyponatremia; C78.7 Secondary malignant neoplasm of liver and intrahepatic bile duct; C79.51 Secondary malignant neoplasm of bone; C34.90 Malignant neoplasm of unspecified part of unspecified bronchus or lung; E86.0 Dehydration; F41.9 Anxiety disorder, unspecified; F17.210 Nicotine dependence, cigarettes, uncomplicated; E78.00 Pure hypercholesterolemia, unspecified; K21.9 Gastro-esophageal reflux disease without esophagitis; G47.30 Sleep apnea, unspecified; M79.7 Fibromyalgia; M25.512 Pain in left shoulder; M54.9 Dorsalgia, unspecified; R07.81 Pleurodynia; Z92.3 Personal history of irradiation; Z92.21 Personal history of antineoplastic chemotherapy
CPT/HCPCS: 70553; 74176; 76937; 80048; 80053; 81001; 83690; 83930; 83935; 84155; 84443; 85025; 87493; 87506; 93971; 96361; 96374; 96375; A9579; J0744; J0780; J1170; J1650; J7030; Q0163

== ENCOUNTER 2017-08-15 21:03 | Inpatient (IN) | payer MEDICAID ==
[~2017-08-15] VITALS: Ht 165.1 cm; Wt 76.6 kg
[~2017-08-15 21:03] MED LIST changes: +AMIT24CA9 PO; +CALCTAB19 PO; -CYCL-36 PO; +HYDR-755 PO; +LORA0.5T PO; +NABU1TAB33 PO; +OXYC15TA PO; +OXYC30TA62 PO; +PROC5TAB PO; -SERT-132 PO; +SODI1TAB PO; +VANC1CAP6 PO
[2017-08-15 21:49] VITALS: BP 139/64; PULSE 71; RESP 18; TEMP 98.1; O2SAT 100
[2017-08-15 22:05] VITALS: BP 124/75; PULSE 69; RESP 18; TEMP 98; O2SAT 100
[2017-08-15] MEDS ORDERED: FENT1DIS35 T-DERMAL (22:05)
[2017-08-15] MEDS ORDERED: PROCHLORPERAZINE INJ 10 MG/2 ML VIAL IV PUSH ONE (22:30)
[2017-08-15] MEDS ORDERED: SODIUM CHLOR 0.9% 1000 ML INJ 1,000 ML IV ONE (22:30)
[2017-08-15] MEDS ORDERED: HYDROmorphone HCL PF 2 MG/ML VIAL IV PUSH ONE (22:30)
[2017-08-15 23:05] LABS: AUTOMATED NEUTROPHIL # 2.5 TH/MM3 (1.8-7.7); BASOPHIL % 0.4 % (0.0-2.0); EOSINOPHIL % 0.7 % (0.0-4.0); HEMATOCRIT 39.1 % (35.0-46.0); HEMOGLOBIN 13.7 GM/DL (11.6-15.3); LYMPH % 14.9 % (9.0-44.0); LYMPHOCYTE # 0.5 TH/MM3 (1.0-4.8); MEAN CELL VOLUME 83.9 FL (80.0-100.0); MEAN CORPUSCULAR HEMOGLOBIN 29.4 PG (27.0-34.0); MEAN PLATELET VOLUME 6.9 FL (7.0-11.0); MONO % 9.3 % (0.0-8.0); MONOCYTE # 0.3 TH/MM3 (0-0.9); NEUT % 74.7 % (16.0-70.0); PLATELET COUNT 173 TH/MM3 (150-450); RED BLOOD COUNT 4.66 MIL/MM3 (4.00-5.30); RED CELL DISTRIBUTION WIDTH 14.2 % (11.6-17.2); WHITE BLOOD COUNT 3.4 TH/MM3 (4.0-11.0)
--- NOTE | 2017-08-15 23:10 | PD ---
HPI Chief Complaint: GI Complaint Time Seen by Provider: 22:00 Travel History International Travel<30 days: No Contact w/Intl Traveler<30days: No Traveled to known affect area: No History of Present Illness HPI 52-year-old woman with metastatic small cell lung CA, on chronic opiates, presents emergency department complaining of nausea vomiting abdominal cramping and dehydration since she stopped her OxyContin 3 days ago and switched to fentanyl. She was taking OxyContin 40 mg twice a day with 15 mg of oxycodone for breakthrough. Apparently her insurance would not pay the OxyContin and so they recommended she switch to fentanyl patch. Dr. Dow switched her to 37.5 mcg fentanyl patches. Since that time she has had nausea vomiting abdominal cramping and feeling poorly. She has also had some headache. She has a history of small cell lung CA with bony metastasis. No known brain metastases. No diarrhea. Symptoms were worsening so she can the emergency department today. History Past Medical History Narrative Medical Metastatic small cell lung CA, status post chemoradiation, with bony metastases EARNESTINE Fibromyalgia Fatty liver History of C. difficile History of gestational diabetes Tetanus Vaccination: Unknown Influenza Vaccination: No LMP: menapause : 5 Para: 2 Social History Alcohol Use: Yes Tobacco Use: Yes Allergies-Medications (Allergen,Severity, Reaction): Coded Allergies: codeine (Verified Allergy, Severe, Hives, SOB, 08/15/17) diatrizoate meglumine (Unverified Allergy, Severe, HIVES, 08/15/17) REACTION TO IV DYE ONLY (PO CAN TOLERATE) gadobenic acid (Unverified Allergy, Severe, HIVES, 08/15/17) REACTION TO IV DYE ONLY (PO CAN TOLERATE) gadodiamide (Unverified Allergy, Severe, HIVES, 08/15/17) REACTION TO IV DYE ONLY (PO CAN TOLERATE) gadoteridol (Unverified Allergy, Severe, HIVES, 08/15/17) REACTION TO IV DYE ONLY (PO CAN TOLERATE) iodixanol (Unverified Allergy, Severe, HIVES, 08/15/17) REACTION TO IV DYE ONLY (PO CAN TOLERATE) iohexol (Unverified Allergy, Severe, HIVES, 08/15/17) REACTION TO IV DYE ONLY (PO CAN TOLERATE) morphine (Verified Allergy, Severe, Hives, SHORTNESS OF BREATH , 08/15/17) ondansetron (Verified Allergy, Severe, Hives, 08/15/17) Iodinated Contrast- Oral and IV Dye (Verified Allergy, Intermediate, Hives , 08/15/17) azithromycin (Unverified Allergy, Mild, HIVES, 08/15/17) Reported Meds & Prescriptions Reported Meds & Active Scripts Active Reported Fentanyl Patch 72 HR (Fentanyl) 37.5 Mcg/Hr Patch 37.5 Mcg T-DERMAL Q72H Remove old patch when new one placed. Amitiza (Lubiprostone) 24 Mcg Cap 24 Mg PO BID Prochlorperazine Maleate 5 Mg Tab 5 Mg PO Q6H PRN Oxycodone (Oxycodone HCl) 15 Mg Tab 15 Mg PO Q6HR Lorazepam 0.5 Mg Tab 0.5 Mg PO Q8H PRN Nabumetone 750 Mg Tab 750 Mg PO DAILY Review of Systems Except as stated in HPI: all other systems reviewed are Neg Physical Exam Narrative GENERAL: Generally well-appearing 51-year-old woman, no acute distress. SKIN: Focused skin assessment warm/dry. HEAD: Atraumatic. Normocephalic. EYES: Pupils equal and round. No scleral icterus. No injection or drainage. ENT: No nasal bleeding or discharge. Mucous membranes pink and moist. NECK: Trachea midline. No JVD. CARDIOVASCULAR: Regular rate and rhythm. No murmur appreciated. RESPIRATORY: No accessory muscle use. Clear to auscultation. Breath sounds equal bilaterally. GASTROINTESTINAL: Abdomen soft, non-tender, nondistended. Hepatic and splenic margins not palpable. MUSCULOSKELETAL: No obvious deformities. No edema. NEUROLOGICAL: Awake and alert. No obvious cranial nerve deficits. Motor grossly within normal limits. Normal speech. Data Data Last Documented VS Vital Signs Date Time Temp Pulse Resp B/P (MAP) Pulse Ox O2 Delivery O2 Flow Rate FiO2 08/15/17 22:05 98.0 69 18 124/75 (91) 100 Room Air Orders Orders Complete Blood Count With Diff (08/15/17 22:21) Comprehensive Metabolic Panel (08/15/17 22:21) Iv Access Insert/Monitor (08/15/17 22:21) Sodium Chlor 0.9% 1000 Ml Inj (Ns 1000 M (08/15/17 22:30) Hydromorphone Pf Inj (Dilaudid Pf Inj) (08/15/17 22:30) Prochlorperazine Inj (Compazine Inj) (08/15/17 22:30) Oxycodone Sr (Oxycontin Cr) (08/15/17 23:15) Admit Order (Ed Use Only) (08/16/17 ) Labs Laboratory Tests Test 08/15/17 22:45 White Blood Count 3.4 TH/MM3 Red Blood Count 4.66 MIL/MM3 Hemoglobin 13.7 GM/DL Hematocrit 39.1 % Mean Corpuscular Volume 83.9 FL Mean Corpuscular Hemoglobin 29.4 PG Mean Corpuscular Hemoglobin Concent 35.0 % Red Cell Distribution Width 14.2 % Platelet Count 173 TH/MM3 Mean Platelet Volume 6.9 FL Neutrophils (%) (Auto) 74.7 % Lymphocytes (%) (Auto) 14.9 % Monocytes (%) (Auto) 9.3 % Eosinophils (%) (Auto) 0.7 % Basophils (%) (Auto) 0.4 % Neutrophils # (Auto) 2.5 TH/MM3 Lymphocytes # (Auto) 0.5 TH/MM3 Monocytes # (Auto) 0.3 TH/MM3 Eosinophils # (Auto) 0.0 TH/MM3 Basophils # (Auto) 0.0 TH/MM3 CBC Comment DIFF FINAL Differential Comment Blood Urea Nitrogen 10 MG/DL Creatinine 0.43 MG/DL Random Glucose 83 MG/DL Total Protein 7.0 GM/DL Albumin 3.9 GM/DL Calcium Level 8.1 MG/DL Alkaline Phosphatase 108 U/L Aspartate Amino Transf (AST/SGOT) 19 U/L Alanine Aminotransferase (ALT/SGPT) 15 U/L Total Bilirubin 0.4 MG/DL Sodium Level 117 MEQ/L Potassium Level 4.2 MEQ/L Chloride Level 86 MEQ/L Carbon Dioxide Level 20.6 MEQ/L Anion Gap 10 MEQ/L Estimat Glomerular Filtration Rate 154 ML/MIN [facility] Medical Decision Making Medical Screen Exam Complete: Yes Emergency Medical Condition: Yes Interpretation(s) LABS: CBC remarkable for mild decreased white count CMP is remarkable for sodium 117 Differential Diagnosis Opioid withdrawal, opioid phthisis severe poisoning, electrolyte abnormality, dehydration, other Narrative Course Medical decision making 52-year-old woman presents with nausea vomiting abdominal cramping after changing her chronic opioids. 37.5 mcg of fentanyl seems low for medication she was on, but reportedly is equal analgesic. She is not having any diarrhea to suggest opioid withdrawal. She looks overall well. Will check basic labs. Give her nausea medicines and pain medicines, will likely give her a dose of oral OxyContin to hold her over until tomorrow when she can follow-up with her oncologist. FINAL call patient with marked hyponatremia. Could be contributing to the symptoms, or could be caused by the nausea vomiting. Given the marked hyponatremia, will admit f for further evaluation and treatment. Spoke with Dr. So, will admit patient. Diagnosis Primary Impression: Hyponatremia Additional Impressions: Lung cancer Nausea & vomiting Admitting Information Admitting Physician Requests: Admit Additional Instructions: Continue current medications. Follow-up with Dr. Neves tomorrow. Return to the emergency department for any new or worsening symptoms. Med/Other Pt SpecificInfo: No Change to Meds Disposition: 01 DISCHARGE HOME Condition: Stable [place] Gilbert MD Aug 15, 2017 23:10
[2017-08-15] MEDS ORDERED: oxyCODONE HCL 40 MG CONTROLLED RELEASE TAB PO ONE (23:15)
[2017-08-15 23:50] LABS: ALBUMIN 3.9 GM/DL (3.4-5.0); ALKALINE PHOSPHATASE 108 U/L (45-117); ALT (GPT) 15 U/L (10-53); AST (GOT) 19 U/L (15-37); BICARBONATE 20.6 MEQ/L (21.0-32.0); BLOOD UREA NITROGEN 10 MG/DL (7-18); CALCIUM 8.1 MG/DL (8.5-10.1); CHLORIDE 86 MEQ/L (98-107); CREATININE 0.43 MG/DL (0.50-1.00); GLOMERULAR FILTRATION RATE 154 ML/MIN (>89); GLUCOSE,RANDOM 83 MG/DL (74-106); TOTAL BILIRUBIN ADULT 0.4 MG/DL (0.2-1.0)
[2017-08-16 00:18] LABS: SODIUM (NA) 117 MEQ/L (136-145)
[2017-08-16] MEDS ORDERED: PROCHLORPERAZINE MALEATE 5 MG TAB PO PRN (01:30)
[2017-08-16] MEDS ORDERED: NALOXONE HCL 0.4 MG/ML AMP IV PUSH PRN (01:30)
[2017-08-16] MEDS ORDERED: LACTULOSE SYRUP 20 GM/30 ML CUP PO PRN (01:30)
[2017-08-16] MEDS ORDERED: SENNOSIDES 8.6 MG TAB PO PRN (01:30)
[2017-08-16] MEDS ORDERED: ACETAMINOPHEN 325 MG TAB PO PRN (01:30)
[2017-08-16] MEDS ORDERED: SODIUM CHLORIDE 0.9% FLUSH 10 ML FLUSH IV FLUSH PRN (01:30)
[2017-08-16] MEDS ORDERED: MAGNESIUM HYDROXIDE SUSP 30 ML CUP PO PRN (01:30)
[2017-08-16] MEDS ORDERED: ONDANSETRON HCL 4 MG/2 ML VIAL IVP PRN (01:30)
[2017-08-16] MEDS ORDERED: BISACODYL 10 MG SUPP RECTAL PRN (01:30)
[2017-08-16] MEDS: SODIUM CHLOR 0.9% 1000 ML INJ 1,000 ML IV SCH ×2 (01:30→14:53)
--- NOTE | 2017-08-16 01:41 | HHI.HP ---
HPI Service [facility] Primary Care Physician Shelli Leonard MD Admission Diagnosis Nausea vomiting, hyponatremia Diagnoses: Travel History International Travel<30 Days: No Contact w/Intl Traveler <30 Da: No Traveled to Known Affected Are: No History of Present Illness 52-year-old female with past medical history significant for small cell lung cancer presents to the emergency department for evaluation of headache, vomiting and weakness. The patient reports that for the past 3 days she has had a headache with accompanying vomiting. She states she is unable to keep anything down including water. She also notes that she has had an increase in fatigue and weakness with shortness of breath. She states her symptoms are worsening. The patient states that 3 days ago her pain medication was changed from 40 mg of OxyContin twice a day to 37.5 g of fentanyl patch. She states she thinks her symptoms are related to her changing and pain medication. The patient denies any chest pain. No diarrhea. She denies cough. No abdominal pain. No lateralizing signs/symptoms. Review of Systems Except as stated in HPI: all other systems reviewed are Neg Past Family Social History Past Medical History Small cell lung cancer Past Surgical History Hernia repair Colon resection Cholecystectomy Reported Medications Reported Meds & Active Scripts Active Reported Fentanyl Patch 72 HR (Fentanyl) 37.5 Mcg/Hr Patch 37.5 Mcg T-DERMAL Q72H Remove old patch when new one placed. Amitiza (Lubiprostone) 24 Mcg Cap 24 Mg PO BID Prochlorperazine Maleate 5 Mg Tab 5 Mg PO Q6H PRN Oxycodone (Oxycodone HCl) 15 Mg Tab 15 Mg PO Q6HR Lorazepam 0.5 Mg Tab 0.5 Mg PO Q8H PRN Nabumetone 750 Mg Tab 750 Mg PO DAILY Allergies: Coded Allergies: codeine (Verified Allergy, Severe, Hives, SOB, 08/15/17) diatrizoate meglumine (Unverified Allergy, Severe, HIVES, 08/15/17) REACTION TO IV DYE ONLY (PO CAN TOLERATE) gadobenic acid (Unverified Allergy, Severe, HIVES, 08/15/17) REACTION TO IV DYE ONLY (PO CAN TOLERATE) gadodiamide (Unverified Allergy, Severe, HIVES, 08/15/17) REACTION TO IV DYE ONLY (PO CAN TOLERATE) gadoteridol (Unverified Allergy, Severe, HIVES, 08/15/17) REACTION TO IV DYE ONLY (PO CAN TOLERATE) iodixanol (Unverified Allergy, Severe, HIVES, 08/15/17) REACTION TO IV DYE ONLY (PO CAN TOLERATE) iohexol (Unverified Allergy, Severe, HIVES, 08/15/17) REACTION TO IV DYE ONLY (PO CAN TOLERATE) morphine (Verified Allergy, Severe, Hives, SHORTNESS OF BREATH , 08/15/17) ondansetron (Verified Allergy, Severe, Hives, 08/15/17) Iodinated Contrast- Oral and IV Dye (Verified Allergy, Intermediate, Hives , 08/15/17) azithromycin (Unverified Allergy, Mild, HIVES, 08/15/17) Family History 2 brothers with diabetes mellitus Social History Smokes approximately 1/2-1 pack per day. Denies alcohol and illicit drugs. Physical Exam Vital Signs Vital Signs Date Time Temp Pulse Resp B/P (MAP) Pulse Ox O2 Delivery O2 Flow Rate FiO2 08/15/17 22:05 98.0 69 18 124/75 (91) 100 Room Air 08/15/17 21:49 98.1 71 18 139/64 (89) 100 Physical Exam GENERAL: female lying in bed SKIN: No rashes, ecchymoses or lesions. Cool and dry. HEAD: Atraumatic. Normocephalic. No temporal or scalp tenderness. EYES: Pupils equal round and reactive. Extraocular motions intact. No scleral icterus. No injection or drainage. ENT: Nose without bleeding, purulent drainage or septal hematoma. Throat without erythema, tonsillar hypertrophy or exudate. Uvula midline. Airway patent. NECK: Trachea midline. No JVD or lymphadenopathy. Supple, nontender, no meningeal signs. CARDIOVASCULAR: Regular rate and rhythm without murmurs, gallops, or rubs. RESPIRATORY: Clear to auscultation. Breath sounds equal bilaterally. No wheezes , rales, or rhonchi. GASTROINTESTINAL: Abdomen soft, non-tender, nondistended. No hepato-splenomegaly , or palpable masses. No guarding. MUSCULOSKELETAL: Extremities without clubbing, cyanosis, or edema. No joint tenderness, effusion, or edema noted. No calf tenderness. NEUROLOGICAL: Awake and alert. Cranial nerves II through XII intact. Motor and sensory grossly within normal limits. Normal speech. Laboratory Laboratory Tests Test 08/15/17 22:45 White Blood Count 3.4 Red Blood Count 4.66 Hemoglobin 13.7 Hematocrit 39.1 Mean Corpuscular Volume 83.9 Mean Corpuscular Hemoglobin 29.4 Mean Corpuscular Hemoglobin Concent 35.0 Red Cell Distribution Width 14.2 Platelet Count 173 Mean Platelet Volume 6.9 Neutrophils (%) (Auto) 74.7 Lymphocytes (%) (Auto) 14.9 Monocytes (%) (Auto) 9.3 Eosinophils (%) (Auto) 0.7 Basophils (%) (Auto) 0.4 Neutrophils # (Auto) 2.5 Lymphocytes # (Auto) 0.5 Monocytes # (Auto) 0.3 Eosinophils # (Auto) 0.0 Basophils # (Auto) 0.0 CBC Comment DIFF FINAL Differential Comment Blood Urea Nitrogen 10 Creatinine 0.43 Random Glucose 83 Total Protein 7.0 Albumin 3.9 Calcium Level 8.1 Alkaline Phosphatase 108 Aspartate Amino Transf (AST/SGOT) 19 Alanine Aminotransferase (ALT/SGPT) 15 Total Bilirubin 0.4 Sodium Level 117 Potassium Level 4.2 Chloride Level 86 Carbon Dioxide Level 20.6 Anion Gap 10 Estimat Glomerular Filtration Rate 154 Result Diagram: 08/15/17224408/15/172244 Caprini VTE Risk Assessment Caprini VTE Risk Assessment: Mod/High Risk (score >= 2) Caprini Risk Assessment Model Point Value = 1 Point Value = 2 Point Value = 3 Point Value = 5 Age 41-60 Minor surgery BMI > 25 kg/m2 Swollen legs Varicose veins or History of unexplained or recurrent spontaneous Oral contraceptives or hormone replacement Sepsis (< 1 month) Serious lung disease, including pneumonia (< 1 month) Abnormal pulmonary function Acute myocardial infarction Congestive heart failure (< 1 month) History of inflammatory bowel disease Medical patient at bed rest Age 61-74 Arthroscopic surgery Major open surgery (> 45 min) Laparoscopic surgery (> 45 min) Malignancy Confined to bed (> 72 hours) Immobilizing plaster cast Central venous access Age >= 75 History of VTE Family history of VTE Factor V Leiden Prothrombin [id number] Lupus anticoagulant Anticardiolipin antibodies Elevated serum homocysteine Heparin-induced thrombocytopenia Other congenital or acquired thrombophilia Stroke (< 1 month) Elective arthroplasty Hip, pelvis, or leg fracture Acute spinal cord injury (< 1 month) Prophylaxis Regimen Total Risk Factor Score Risk Level Prophylaxis Regimen 0-1 Low Early ambulation 2 Moderate Order ONE of the following: *Sequential Compression Device (SCD) *Heparin 5000 units SQ BID 3-4 Higher Order ONE of the following medications: *Heparin 5000 units SQ TID *Enoxaparin/Lovenox 40 mg SQ daily (WT < 150 kg, CrCl > 30 mL/min) *Enoxaparin/Lovenox 30 mg SQ daily (WT < 150 kg, CrCl > 10-29 mL/min) *Enoxaparin/Lovenox 30 mg SQ BID (WT < 150 kg, CrCl > 30 mL/min) AND/OR *Sequential Compression Device (SCD) 5 or more Highest Order ONE of the following medications: *Heparin 5000 units SQ TID (Preferred with Epidurals) *Enoxaparin/Lovenox 40 mg SQ daily (WT < 150 kg, CrCl > 30 mL/min) *Enoxaparin/Lovenox 30 mg SQ daily (WT < 150 kg, CrCl > 10-29 mL/min) *Enoxaparin/Lovenox 30 mg SQ BID (WT < 150 kg, CrCl > 30 mL/min) AND *Sequential Compression Device (SCD) Assessment and Plan Assessment and Plan Assessment/plan: 1. Hyponatremia Sodium 117, was 127 on 07/14/17 Gentle IV fluid hydration Fluid restriction Repeat BMP 2. Weakness/fatigue May be secondary to hyponatremia Plan as above 3. Headache/vomiting Likely secondary to change in patient's pain medication regimen Holding fentanyl Restart OxyContin Consult patient's oncologist, Dr. Kamara, for assistance with pain management 4. Small cell lung cancer Follow up as an outpatient Dr. Kamara consulted, appreciate recommendations FEN Regular diet with fluid restriction Electrolytes: as above NS at 70 cc/hr Lovenox Physician Certification 2 Midnight Certification Type: Admission for Inpatient Services Order for Inpatient Services The services are ordered in accordance with Medicare regulations or non- Medicare payer requirements, as applicable. In the case of services not specified as inpatient-only, they are appropriately provided as inpatient services in accordance with the 2-midnight benchmark. Estimated LOS (days): 2 2 days is the estimated time the patient will need to remain in the hospital, assuming treatment plan goals are met and no additional complications. Post-Hospital Plan: Not yet determined Alexa So MD Aug 16, 2017 01:41
[2017-08-16] MEDS ORDERED: oxyCODONE HCL 10 MG CONTROLLED RELEASE TAB PO ONE (02:15)
[2017-08-16 03:08] VITALS: BP 128/60; PULSE 68; RESP 18; TEMP 98; O2SAT 96
[2017-08-16] MEDS: ENOXAPARIN SODIUM 40 MG/0.4 ML SYRINGE SQ SCH (04:56)
[2017-08-16 08:00] VITALS: BP_SYST 111; BP_SYST 144; BP_DIAS 54; BP_DIAS 80; PULSE 71; PULSE 83; RESP 17; RESP 19; TEMP 98.3; TEMP 98.5; O2SAT 100; O2SAT 95
[2017-08-16] MEDS: SODIUM CHLORIDE 0.9% FLUSH 10 ML FLUSH IV FLUSH SCH ×2 (08:30→20:52)
[2017-08-16] MEDS ORDERED: NABUMETONE 750 MG PO SCH (09:00)
[2017-08-16] MEDS ORDERED: LUBIPROSTONE 24 MG PO SCH (09:00)
[2017-08-16] MEDS: DOCUSATE SODIUM 50 MG/SENNA 8.6 MG TAB PO SCH ×2 (09:00→20:53)
[2017-08-16] MEDS: oxyCODONE HCL 40 MG CONTROLLED RELEASE TAB PO SCH ×2 (09:23→20:53)
--- NOTE | 2017-08-16 09:25 | HHI.PR ---
Subjective Remarks in no acute distress. complaining of nausea/vomiting. no abdominal pain. Objective Vitals Vital Signs Date Time Temp Pulse Resp B/P (MAP) Pulse Ox O2 Delivery O2 Flow Rate FiO2 08/16/17 08:00 98.3 71 17 111/54 (73) 95 08/16/17 08:00 98.5 83 19 144/80 (101) 100 08/16/17 03:08 98.0 68 18 128/60 (82) 96 08/15/17 22:05 98.0 69 18 124/75 (91) 100 Room Air 08/15/17 21:49 98.1 71 18 139/64 (89) 100 I/O 08/15/17 08/15/17 08/15/17 08/16/17 08/16/17 08/16/17 07:00 15:00 23:00 07:00 15:00 23:00 Intake Total 240 ml Balance 240 ml Intake Oral 240 ml # Voids 1 Result Diagram: 08/15/17 2245 08/15/172244 Objective Remarks GENERAL: This is a well-nourished, well-developed patient, in no apparent distress. CARDIOVASCULAR: Regular rate and regular rhythm without murmurs, gallops, or rubs. RESPIRATORY: Clear to auscultation. Breath sounds equal bilaterally. No wheezes , rales, or rhonchi. GASTROINTESTINAL: Abdomen soft, non-tender, nondistended. Normal, active bowel sounds MUSCULOSKELETAL: Extremities without clubbing, cyanosis, or edema. NEURO: Alert & Oriented x4 to person, place, time, situation. Moves all ext x4 Medications and IVs Inpatient Medications Acetaminophen (Tylenol) 650 mg Q4H PRN PO TEMP > 100.4; Start 08/16/17 at 01:30 Bisacodyl (Dulcolax Supp) 10 mg DAILY PRN RECTAL SEVERE CONSITIPATION; Start at 01:30 Enoxaparin Sodium (Lovenox Inj) 40 mg Q24H SQ Last administered on 08/16/17at 04: 56; Start 08/16/17 at 04:00 Hydromorphone HCl (Dilaudid Pf Inj) 1 mg ONCE ONCE IV PUSH Last administered on 08/15/17at 22:42; Start 08/15/17 at 22:30; Stop 08/15/17 at 22:31; Status DC Lactulose (Lactulose Liq) 30 ml DAILY PRN PO SEVERE CONSITIPATION; Start at 01:30 Lorazepam (Ativan) 0.5 mg Q8H PRN PO ANXIETY; Start 08/16/17 at 01:30 Magnesium Hydroxide (Milk Of Magnesia Liq) 30 ml Q12H PRN PO Mild constipation ; Start 08/16/17 at 01:30 Naloxone HCl (Narcan Inj) 0.4 mg UNSCH PRN IV PUSH SEE LABEL COMMENTS; Start at 01:30 Ondansetron HCl (Zofran Inj) 4 mg Q6H PRN IVP NAUSEA OR VOMITING; Start at 01:30; Status UNV Oxycodone HCl (OxyCONTIN CR) 40 mg ONCE ONCE PO Last administered on 08/16/17at 02:23; Start 08/16/17 at 02:15; Stop 08/16/17 at 02:16; Status DC Oxycodone HCl (Roxicodone) 15 mg Q6HR PO Last administered on 08/16/17at 04:58; Start 08/16/17 at 06:00 Patient Own Medication PT OWN MED:Nabumetone 750 MG DOSE DAILY PO ; Start at 09:00; Status Future Hold Prochlorperazine Edisylate (Compazine Inj) 10 mg ONCE ONCE IV PUSH Last administered on 08/15/17at 22:43; Start 08/15/17 at 22:30; Stop 08/15/17 at 22:31; Status DC Prochlorperazine Maleate (Compazine) 5 mg Q6H PRN PO NAUSEA OR VOMITING; Start 08/16/17 at 01:30 Senna/Docusate Sodium (Darlene-Colace) 1 tab BID PO ; Start 08/16/17 at 09:00 Sennosides (Senokot) 17.2 mg Q12H PRN PO Moderate constipation; Start 08/16/17 at 01:30 Sodium Chloride (NS Flush) 2 ml BID IV FLUSH ; Start 08/16/17 at 09:00 A/P Assessment and Plan A/P 1. Hyponatremia- likely due to persistent nausea/ vomiting Sodium 117, was 127 on 07/14/17 continue with IV fluid monitor sodium level closely. 2. Weakness/fatigue May be secondary to hyponatremia Plan as above 3. Headache/vomiting Likely secondary to change in patient's pain medication regimen Holding fentanyl Restart OxyContin oncology consulted and case was d/w today. 4. Small cell lung cancer Follow up as an outpatient Dr. Kamara consulted, appreciate recommendations FEN Regular diet with fluid restriction Electrolytes: as above NS at 70 cc/hr Dinorah Bradley MD Aug 16, 2017 09:25
--- NOTE | 2017-08-16 09:48 | MB ---
cc: Tayo Kamara MD DATE: 08/16/2017 REASON FOR CONSULTATION: 1. Patient with a history of metastatic small cell carcinoma of the lung. 2. Hyponatremia. 3. Uncontrolled nausea and vomiting. CHIEF COMPLAINT: Ms. Moncada reports having had 3 days of almost continuous vomiting and severe headaches. She tells me her symptoms started after she initiated fentanyl patches, which were prescribed by myself about 4 days prior. HISTORY OF PRESENT ILLNESS: Ms. Moncada is a 52-year-old female with an extensive past history of tobaccoism, who was diagnosed in 01/2017 with metastatic small cell carcinoma of lung primary. The patient was living in [place] at that time. She had extensive skeletal metastases and was treated with palliative radiation and systemic therapy with cisplatin and etoposide. She received a total of 3 cycles between February and April 2017 and then traveled back to [place], which is her previous residence. She has been in [place] now since 05/2017. In addition to systemic palliative chemotherapy, the patient had been on Xgeva injections for management of her bony metastases. Most recent restaging imaging scans performed about 2 weeks ago indicated a reasonably good systemic disease control. When compared to the reports from [place] prior to her starting therapy, it appears the patient has had a good response to treatment to the pelvic bone metastases, as well as the primary tumor, which involved the right hemithorax originating in the right upper lobe adjacent to the mediastinum. The patient, however, was recommended transition from viejas and etoposide to topotecan due to an anaphylactoid type reaction to etoposide which she had originally experienced in [place], and she had a recurrent episode at my clinic last month. At her last visit with me less than 1 week ago, the patient required refills of Oxycontin, which she had been on at a dose of 40 mg p.o. twice a day. The patient's insurance company did not fill the prescription because this medication was out of network and patient was advised to try fentanyl first. An equal analgesic dose of fentanyl was written; however, as soon as put the patch on, she developed symptoms of nausea, vomiting and headaches. She presented to the hospital after 3 days of enduring these symptoms and was noted at presentation to have hyponatremia, hypochloremia, and other electrolyte derangements. She was clinically dehydrated as well. She has been admitted to the hospital for hydration, pain control and workup of hyponatremia. It should be noted the patient has some baseline hyponatremia. PAST MEDICAL HISTORY: 1. Metastatic small cell carcinoma of the lung. 2. Tobaccoism. 3. Multiple bone metastases. 4. History of gestational diabetes. 5. History of Clostridium difficile colitis. 6. Diverticulitis. 7. Hyponatremia. PAST SURGICAL HISTORY: 1. Cholecystectomy. 2. . 3. Hernia repair. 4. Partial colon resection 2007. 5. Infusion port placement. 6. Image-guided biopsy of metastatic bone deposit. FAMILY HISTORY: Father of metastatic prostate cancer. Mother had a stroke. No oncologic diagnoses known. HEALTH MAINTENANCE: She is not up-to-date with colonoscopies or mammograms. SOCIAL HISTORY: She has 2 children, age 18 and 24. She presently lives at home by herself. She recently relocated from [place]. GYNECOLOGIC HISTORY: 5, para 2. ALLERGIES: MORPHINE, ZOFRAN, CODEINE AND CT CONTRAST MEDIUM. CURRENT INPATIENT MEDICATIONS: 1. Normal saline 70 mL per hour. 2. Tylenol 650 mg p.o. q. 4 hours. 3. Dulcolax 10 mg per rectum as needed for severe constipation. 4. Senna Colace 1 tablet p.o. twice a day as needed. 5. Lovenox 40 mg subcutaneous q. 24. 6. Lactulose 30 mL p.o. daily. 7. Ativan 0.5 mg p.o. q. 8 hours as needed for anxiety. 8. Zofran 4 mg IV. q. 6 hours as needed for nausea and vomiting. 9. Oxycodone long-acting 40 mg p.o. q. 12 hours. 10. Prochlorperazine, that is Compazine 5 mg p.o. q. 6 hours as needed for nausea and vomiting. REVIEW OF SYSTEMS: A 13-point patient completed review of systems were obtained. The following are the pertinent positives and negatives: CONSTITUTIONAL: The patient reports generalized weakness, fatigue, loss of appetite. She denies fevers or chills. HEENT: She reports having headaches. She denies blurry visions. She denies difficulty swallowing. She denies epistaxis. RESPIRATORY: Denies difficulty breathing, cough or hemoptysis. CARDIOVASCULAR: Denies anginal-like chest pain, PND or orthopnea or palpitations. EXTREMITIES: Lower extremities, no pretibial edema or calf tenderness. GI: Reports nausea, vomiting. Denies diarrhea, hematochezia or melena. Denies abdominal distention. : No complaints. GROUP INSURANCE SPECIAL AGENT: Headaches, but denies any focal, sensory or motor deficits. No other complaints reported. PHYSICAL EXAMINATION: VITAL SIGNS: Temperature 98 degrees Fahrenheit, heart rate 68 beats per minute, respiratory rate 18, blood pressure is 128/60, O2 saturations are 96 percent on room air. GENERAL APPEARANCE: Ms. Moncada is a middle-aged female, she is of medium height and is heavyset, she has alopecia of chemotherapy. She is sitting up in bed and appears to be in no acute distress. HEENT: Head atraumatic, normocephalic. Conjunctivae are mildly pale. Sclerae are anicteric, EOMI, PERRLA. Oral exam, no pharyngeal erythema. NECK: No palpable cervical or supraclavicular lymphadenopathy. RESPIRATORY: Good air movement bilaterally. No added breath sounds. CARDIOVASCULAR: Regular rate and rhythm. S1, S2. No obvious murmurs, rubs or gallops. ABDOMEN: Protuberant belly, soft and nontender, nondistended. No palpable organ enlargement. EXTREMITIES: Lower extremities, no pretibial edema, no calf tenderness. GROUP INSURANCE SPECIAL AGENT: No focal sensory or motor deficits. MUSCULOSKELETAL: Good muscle mass, tone and strength. SKIN: Cool and moist. No bruising noted. LABORATORY DATA: Blood work dated 08/15/2017: WBC count 3.4, hemoglobin 13.7 g/dL, hematocrit 39%, platelet count is 174, absolute neutrophil count is 2.5. Chemistries: Sodium 117, potassium 4.2, chloride is 86, bicarbonate was 20.6, BUN 10, creatinine 0.4, calcium 8.1, total bilirubin 0.4, AST 19, ALT 15, alkaline phosphatase 108, albumin 2.9. Urine osmolarity was 415, which is within normal limits. RADIOGRAPH STUDIES: No imaging studies have been ordered this hospitalization. ASSESSMENT AND PLAN: Ms. Moncada is a 51-year-old female with a diagnosis of metastatic small cell carcinoma of lung primary initially diagnosed in 01/2017. She had extensive bony metastases at the time of diagnosis and she has thus far been treated with palliative radiation to the pelvic bones which are heavily involved. I believe her shoulder was also treated on the left side due to symptomatic metastases, she has received 3 cycles of cisplatin and etoposide while she was still living in [place], and then she received cycle 1, day 1 of carboplatin and etoposide in early 07/2017 locally. Her disease has been under reasonably good control based on most recent restaging imaging scans performed here in about 2 weeks ago. The patient had been recommended second line therapy with topotecan due to her anaphylactoid type reaction to etoposide which prohibits additional dosing despite her receiving appropriate prophylaxis to prevent such a reaction from occurring. She presents to the hospital with complaints of headaches, nausea and vomiting. The symptoms started after she put on her first fentanyl patch. She was required to transition from Oxycontin, which she had been on, with good effectiveness to fentanyl by her insurance company, which required fentanyl be used as first line therapy for long-acting opioid analgesia. She is on long-acting opioid analgesia for management of metastatic cancer-related pain due to extensive bony metastases which biopsy proven. Upon presentation to this facility, she was noted to be hypochloremic and hyponatremic with her sodium level at about 117, her chloride was also low. The patient does have some degree of hyponatremia at baseline, which I suspect is likely related to either dehydration or syndrome of inappropriate antidiuretic hormone (SIADH). (Formal diagnosis of SIADH has not yet been established). RECOMMENDATIONS: 1. Metastatic small cell carcinoma of the lung: The patient will start oral topotecan as an outpatient once her acute symptoms of GI upset have resolved. 2. Hyponatremia: I have ordered urine sodium, I have ordered a serum a.m. cortisol and serum a.m. ACTH to rule out adrenal insufficiency. I suspect he likely has a major contribution of dehydration secondary to nausea and vomiting at this point in addition to possible SIADH. Continue IV fluid hydration. 3. Continue supportive management. Repeat BMP at this point to reassess serum sodium level after hydration overnight. MD MICHELLE Nassar/FAYE , 08:38 AM , 09:46 AM
[2017-08-16 12:00] VITALS: BP 107/51; PULSE 71; RESP 18; TEMP 98.2; O2SAT 96
[2017-08-16 13:45] LABS: BICARBONATE 20.9 MEQ/L (21.0-32.0); CALCIUM 7.1 MG/DL (8.5-10.1); CREATININE 0.39 MG/DL (0.50-1.00)
[2017-08-16 13:58] LABS: CALCIUM-PROTEIN CORRECTED 7.6 MG/DL (8.5-10.1); TOTAL PROTEIN 6.2 GM/DL (6.4-8.2)
[2017-08-16] MEDS: PROCHLORPERAZINE INJ 10 MG/2 ML VIAL IV PUSH PRN (14:21)
[2017-08-16 16:00] VITALS: BP 100/49; PULSE 71; RESP 18; TEMP 98; O2SAT 98
[2017-08-16 20:00] VITALS: BP 100/53; PULSE 68; RESP 16; TEMP 98.4; O2SAT 97
[2017-08-17] VITALS: BP 124/59; PULSE 66; PULSE 67; RESP 16; RESP 18; TEMP 98; TEMP 98.7; O2SAT 100; O2SAT 99
[2017-08-17] MEDS: ENOXAPARIN SODIUM 40 MG/0.4 ML SYRINGE SQ SCH (04:00)
[2017-08-17 05:38] LABS: AUTOMATED NEUTROPHIL # 1.1 TH/MM3 (1.8-7.7); BASOPHIL % 0.7 % (0.0-2.0); EOSINOPHIL % 2.4 % (0.0-4.0); HEMATOCRIT 35.1 % (35.0-46.0); HEMOGLOBIN 12.4 GM/DL (11.6-15.3); LYMPHOCYTE # 0.7 TH/MM3 (1.0-4.8); MEAN CELL VOLUME 84.2 FL (80.0-100.0); MEAN CORPUSCULAR HEMOGLOBIN 29.8 PG (27.0-34.0); MEAN CORPUSCULAR HGB CONC 35.4 % (32.0-36.0); MEAN PLATELET VOLUME 6.8 FL (7.0-11.0); MONO % 10.8 % (0.0-8.0); MONOCYTE # 0.2 TH/MM3 (0-0.9); NEUT % 53.1 % (16.0-70.0); PLATELET COUNT 149 TH/MM3 (150-450); RED BLOOD COUNT 4.17 MIL/MM3 (4.00-5.30); RED CELL DISTRIBUTION WIDTH 14.2 % (11.6-17.2); WHITE BLOOD COUNT 2.1 TH/MM3 (4.0-11.0)
[2017-08-17] MEDS: SODIUM CHLOR 0.9% 1000 ML INJ 1,000 ML IV SCH (05:43)
[2017-08-17 06:02] LABS: BICARBONATE 21.6 MEQ/L (21.0-32.0); CALCIUM 7.1 MG/DL (8.5-10.1); CREATININE 0.42 MG/DL (0.50-1.00)
[2017-08-17 06:33] LABS: CALCIUM-PROTEIN CORRECTED 7.6 MG/DL (8.5-10.1); TOTAL PROTEIN 6.2 GM/DL (6.4-8.2)
[2017-08-17 08:00] VITALS: BP 135/64; PULSE 67; RESP 18; TEMP 98; O2SAT 100
[2017-08-17] MEDS: DOCUSATE SODIUM 50 MG/SENNA 8.6 MG TAB PO SCH ×2 (08:15→21:00)
[2017-08-17] MEDS: SODIUM CHLORIDE 0.9% FLUSH 10 ML FLUSH IV FLUSH SCH ×2 (08:15→21:01)
[2017-08-17] MEDS ORDERED: ONDANSETRON ODT 4 MG TAB PO SCH (08:45)
--- NOTE | 2017-08-17 08:47 | PD.ONC.PN ---
Subjective Subjective Remarks Patient seen and examined, vital signs, labs, medications reviewed. Subjectively; she reports having had a difficult night last night. She had nausea and vomiting almost all day yesterday and was unable to hold down anything substantive to eat even crackers did not stay down. She tells me she also has a severe and persistent headache which starts on the back of her head just above her neck and radiates to the front this above her right eyebrow. She denies fevers or chills she denies difficulty breathing, chest pain or overt bleeding. Objective Data Date Time Temp Pulse Resp B/P (MAP) Pulse Ox O2 Delivery O2 Flow Rate FiO2 08/17/17 08:00 98.0 67 18 135/64 (87) 100 08/17/17 00:00 98.0 66 16 124/59 (80) 99 08/16/17 20:00 98.4 68 16 100/53 (69) 97 08/16/17 16:00 98.0 71 18 100/49 (66) 98 08/16/17 12:00 98.2 71 18 107/51 (69) 96 08/17/17 08/17/17 08/17/17 07:00 15:00 23:00 Output Total 200 ml Balance -200 ml Result Diagram: 08/17/17 0511 08/17/17 0511 Laboratory Results Laboratory Tests Test 08/16/17 12:36 08/16/17 20:04 08/17/17 02:47 08/17/17 05:11 Blood Urea Nitrogen 7 MG/DL 4 MG/DL Creatinine 0.39 MG/DL 0.42 MG/DL Random Glucose 83 MG/DL 82 MG/DL Total Protein 6.2 GM/DL 6.2 GM/DL Calcium Level 7.1 MG/DL 7.1 MG/DL Sodium Level 121 MEQ/L 121 MEQ/L 120 MEQ/L 120 MEQ/L Potassium Level 3.3 MEQ/L 3.7 MEQ/L Chloride Level 90 MEQ/L 91 MEQ/L Carbon Dioxide Level 20.9 MEQ/L 21.6 MEQ/L Anion Gap 10 MEQ/L 7 MEQ/L Estimat Glomerular Filtration Rate 172 ML/MIN 158 ML/MIN Protein Corrected Calcium 7.6 MG/DL 7.6 MG/DL Thyroid Stimulating Hormone 3rd Gen 1.450 uIU/ML Random Cortisol 7.0 MCG/DL White Blood Count 2.1 TH/MM3 Red Blood Count 4.17 MIL/MM3 Hemoglobin 12.4 GM/DL Hematocrit 35.1 % Mean Corpuscular Volume 84.2 FL Mean Corpuscular Hemoglobin 29.8 PG Mean Corpuscular Hemoglobin Concent 35.4 % Red Cell Distribution Width 14.2 % Platelet Count 149 TH/MM3 Mean Platelet Volume 6.8 FL Neutrophils (%) (Auto) 53.1 % Lymphocytes (%) (Auto) 33.0 % Monocytes (%) (Auto) 10.8 % Eosinophils (%) (Auto) 2.4 % Basophils (%) (Auto) 0.7 % Neutrophils # (Auto) 1.1 TH/MM3 Lymphocytes # (Auto) 0.7 TH/MM3 Monocytes # (Auto) 0.2 TH/MM3 Eosinophils # (Auto) 0.0 TH/MM3 Basophils # (Auto) 0.0 TH/MM3 CBC Comment DIFF FINAL Differential Comment Administered Medications Medications (Trade) Dose Ordered Sig/Skyler Route PRN Reason Start Time Stop Time Status Last Admin Dose Admin Oxycodone HCl (Roxicodone) 15 mg Q6HR PO 08/16/17 06:00 08/17/17 00:38 Oxycodone HCl (OxyCONTIN CR) 40 mg Q12HR PO 08/16/17 09:00 08/16/17 20:53 Sodium Chloride (NS Flush) 2 ml BID IV FLUSH 08/16/17 09:00 08/16/17 20:52 Enoxaparin Sodium (Lovenox Inj) 40 mg Q24H SQ 08/16/17 04:00 08/16/17 04:56 Senna/Docusate Sodium (Darlene-Colace) 1 tab BID PO 08/16/17 09:00 08/16/17 20:53 Prochlorperazine Edisylate (Compazine Inj) 5 mg Q6H PRN IV PUSH NAUSEA 08/16/17 10:00 08/16/17 14:21 Objective Remarks GENERAL APPEARANCE: Ms. Moncada is a middle-aged female, she is of medium height and is heavyset, she has alopecia of chemotherapy. She is sitting up in bed and appears to be in no acute distress. HEENT: Head atraumatic, normocephalic. Conjunctivae are mildly pale. Sclerae are anicteric, EOMI, PERRLA. Oral exam, no pharyngeal erythema. NECK: No palpable cervical or supraclavicular lymphadenopathy. RESPIRATORY: Good air movement bilaterally. No added breath sounds. CARDIOVASCULAR: Regular rate and rhythm. S1, S2. No obvious murmurs, rubs or gallops. ABDOMEN: Protuberant belly, soft and nontender, nondistended. No palpable organ enlargement. EXTREMITIES: Lower extremities, no pretibial edema, no calf tenderness. PROJECT ENGINEERING MANAGER: No focal sensory or motor deficits. MUSCULOSKELETAL: Good muscle mass, tone and strength. SKIN: Cool and moist. No bruising noted. Assessment/Plan Assessment Ms. Moncada is a 51-year-old female with a diagnosis of metastatic small cell carcinoma of lung primary initially diagnosed in 01/2017. She had extensive bony metastases at the time of diagnosis and she has thus far been treated with palliative radiation to the pelvic bones which are heavily involved. I believe her shoulder was also treated on the left side due to symptomatic metastases, she has received 3 cycles of cisplatin and etoposide while she was still living in [place], and then she received cycle 1, day 1 of carboplatin and etoposide in early 07/2017 locally. Her disease has been under reasonably good control based on most recent restaging imaging scans performed here in about 2 weeks ago. The patient had been recommended second line therapy with topotecan due to her anaphylactoid type reaction to etoposide which prohibits additional dosing despite her receiving appropriate prophylaxis to prevent such a reaction from occurring. She presents to the hospital with complaints of headaches, nausea and vomiting. The symptoms started after she put on her first fentanyl patch. She was required to transition from Oxycontin, which she had been on, with good effectiveness to fentanyl by her insurance company, which required fentanyl be used as first line therapy for long-acting opioid analgesia. She is on long-acting opioid analgesia for management of metastatic cancer-related pain due to extensive bony metastases which biopsy proven. Upon presentation to this facility, she was noted to be hypochloremic and hyponatremic with her sodium level at about 117, her chloride was also low. The patient does have some degree of hyponatremia at baseline, which I suspect is likely related to either dehydration or syndrome of inappropriate antidiuretic hormone (SIADH). (Formal diagnosis of SIADH has not yet been established). Plan 1. Metastatic small cell carcinoma of lung primary: Treatment on hold until acute issues resolved. She will be starting oral Toprol OT can at the time of discharge and once she is stabilized. 2. Hyponatremia: I suspect SIADH, she is on a fluid restriction, I will discontinue IV fluids and will start her on a sodium chloride tablet 1 g by mouth 1 this morning. 3. Severe headache: I will give her 1 dose of Fioricet and assess response. 4. Nausea and vomiting: [id number] Zofran has been ordered orally. Disposition: Continue supportive care, sodium has yet to improve significantly. Continues to have significant nausea and vomiting. Tayo Kamara MD Aug 17, 2017 08:47
[2017-08-17] MEDS: oxyCODONE HCL 40 MG CONTROLLED RELEASE TAB PO SCH ×2 (09:14→21:00)
[2017-08-17] MEDS: PROCHLORPERAZINE INJ 10 MG/2 ML VIAL IV PUSH PRN ×2 (09:14→17:33)
[2017-08-17] MEDS: SODIUM CHLORIDE 1 GRAM TAB PO SCH (09:14)
[2017-08-17] MEDS ORDERED: ASPIRIN 325 MG/CAFFEINE 40 MG/BUTALBITAL 50 MG CAP PO ONE (10:00)
[2017-08-17 12:00] VITALS: BP 135/60; PULSE 66; RESP 18; TEMP 98.9; O2SAT 99
--- NOTE | 2017-08-17 12:11 | HHI.PR ---
Subjective Remarks still with nausea. denies abdominal pain. has some headache. sodium trend noted. Objective Vitals Vital Signs Date Time Temp Pulse Resp B/P (MAP) Pulse Ox O2 Delivery O2 Flow Rate FiO2 08/17/17 08:00 98.0 67 18 135/64 (87) 100 08/17/17 00:00 98.0 66 16 124/59 (80) 99 08/16/17 20:00 98.4 68 16 100/53 (69) 97 08/16/17 16:00 98.0 71 18 100/49 (66) 98 I/O 08/16/17 08/16/17 08/16/17 08/17/17 08/17/17 08/17/17 07:00 15:00 23:00 07:00 15:00 23:00 Intake Total 240 ml 480 ml Output Total 0 ml 200 ml Balance 240 ml 480 ml -200 ml Intake Oral 240 ml 480 ml Output Urine Total 0 ml Emesis 200 ml # Voids 1 1 # Bowel Movements 0 Result Diagram: 08/17/17 0511 08/17/17 0511 Objective Remarks GENERAL: This is a well-nourished, well-developed patient, in no apparent distress. CARDIOVASCULAR: Regular rate and regular rhythm without murmurs, gallops, or rubs. RESPIRATORY: Clear to auscultation. Breath sounds equal bilaterally. No wheezes , rales, or rhonchi. GASTROINTESTINAL: Abdomen soft, non-tender, nondistended. Normal, active bowel sounds MUSCULOSKELETAL: Extremities without clubbing, cyanosis, or edema. NEURO: Alert & Oriented x4 to person, place, time, situation. Moves all ext x4 Medications and IVs Inpatient Medications Acetaminophen (Tylenol) 650 mg Q4H PRN PO TEMP > 100.4; Start 08/16/17 at 01:30 Bisacodyl (Dulcolax Supp) 10 mg DAILY PRN RECTAL SEVERE CONSITIPATION; Start at 01:30 Butalbital/ Aspirin/Caffeine (Fiorinal 325-40-50) 1 cap ONCE ONCE PO Last administered on 08/17/17at 09:38; Start 08/17/17 at 10:00; Stop 08/17/17 at 10:01; Status DC Enoxaparin Sodium (Lovenox Inj) 40 mg Q24H SQ Last administered on 08/16/17at 04: 56; Start 08/16/17 at 04:00 Hydromorphone HCl (Dilaudid Pf Inj) 1 mg ONCE ONCE IV PUSH Last administered on 08/15/17at 22:42; Start 08/15/17 at 22:30; Stop 08/15/17 at 22:31; Status DC Lactulose (Lactulose Liq) 30 ml DAILY PRN PO SEVERE CONSITIPATION; Start at 01:30 Lorazepam (Ativan) 0.5 mg Q8H PRN PO ANXIETY; Start 08/16/17 at 01:30 Magnesium Hydroxide (Milk Of Magnesia Liq) 30 ml Q12H PRN PO Mild constipation ; Start 08/16/17 at 01:30 Naloxone HCl (Narcan Inj) 0.4 mg UNSCH PRN IV PUSH SEE LABEL COMMENTS; Start at 01:30 Ondansetron HCl (Zofran Odt) 4 mg Q6H PO ; Start 08/17/17 at 08:45; Stop at 10:43; Status DC Oxycodone HCl (OxyCONTIN CR) 40 mg ONCE ONCE PO Last administered on 08/16/17at 02:23; Start 08/16/17 at 02:15; Stop 08/16/17 at 02:16; Status DC Oxycodone HCl (Roxicodone) 15 mg Q6HR PO Last administered on 08/17/17at 00:38; Start 08/16/17 at 06:00 Patient Own Medication PT OWN MED:Nabumetone 750 MG DOSE DAILY PO ; Start at 09:00; Status Future Hold Prochlorperazine Edisylate (Compazine Inj) 5 mg Q6H PRN IV PUSH NAUSEA Last administered on 08/17/17at 09:14; Start 08/16/17 at 10:00 Prochlorperazine Maleate (Compazine) 5 mg Q6H PRN PO NAUSEA OR VOMITING; Start 08/16/17 at 01:30; Stop 08/16/17 at 09:26; Status DC Senna/Docusate Sodium (Darlene-Colace) 1 tab BID PO Last administered on 08/16/17at 20:53; Start 08/16/17 at 09:00 Sennosides (Senokot) 17.2 mg Q12H PRN PO Moderate constipation; Start 08/16/17 at 01:30 Sodium Chloride (NS Flush) 2 ml BID IV FLUSH Last administered on 08/16/17at 20: 52; Start 08/16/17 at 09:00 Sodium Chloride (Sodium Chloride) 1 gm DAILY PO Last administered on 08/17/17at 09:14; Start 08/17/17 at 09:00 A/P Assessment and Plan A/P 1. Hyponatremia- likely due to persistent nausea/ vomiting/ and SIADH Sodium level hasn't improved as much. will stop IV fluid and start on sodium tablet. monitor sodium level closely. 2. Weakness/fatigue May be secondary to hyponatremia Plan as above 3. Headache/vomiting Likely secondary to change in patient's pain medication regimen Holding fentanyl Restart OxyContin one dose of Fiorinal given earlier today- will monitor the response. oncology consulted and case was d/w today. 4. Small cell lung cancer Follow up as an outpatient Dr. Kamara consulted, appreciate recommendations DVt prophylaxis with subq Lovenox Discharge Planning not ready for discharge. Dinorah Luong MD Aug 17, 2017 12:10
[2017-08-17 16:00] VITALS: BP 106/50; PULSE 61; RESP 18; TEMP 98; O2SAT 99
[2017-08-17 20:00] VITALS: BP 128/57; PULSE 67; RESP 18; TEMP 97.7; O2SAT 100
[2017-08-17] MEDS ORDERED: SODIUM CHLORIDE 1 GRAM TAB PO ONE (21:45)
[2017-08-18] VITALS: BP 123/64; PULSE 69; RESP 18; TEMP 98.3; O2SAT 98
[2017-08-18] MEDS ORDERED: PROCHLORPERAZINE INJ 10 MG/2 ML VIAL IM ONE (01:45)
[2017-08-18] MEDS: ENOXAPARIN SODIUM 40 MG/0.4 ML SYRINGE SQ SCH ×2 (05:06→23:45)
[2017-08-18 08:00] VITALS: BP 127/59; PULSE 64; RESP 19; TEMP 97.9; O2SAT 97
[2017-08-18] MEDS: SODIUM CHLORIDE 1 GRAM TAB PO SCH (08:26)
[2017-08-18] MEDS: DOCUSATE SODIUM 50 MG/SENNA 8.6 MG TAB PO SCH ×2 (08:26→21:00)
[2017-08-18] MEDS: oxyCODONE HCL 40 MG CONTROLLED RELEASE TAB PO SCH ×2 (08:26→23:44)
[2017-08-18] MEDS: SODIUM CHLORIDE 0.9% FLUSH 10 ML FLUSH IV FLUSH SCH ×2 (08:27→23:45)
[2017-08-18] MEDS: PROCHLORPERAZINE INJ 10 MG/2 ML VIAL IV PUSH PRN ×2 (08:28→10:24)
[2017-08-18 09:45] LABS: BICARBONATE 21.7 MEQ/L (21.0-32.0); CALCIUM 7.9 MG/DL (8.5-10.1); CREATININE 0.47 MG/DL (0.50-1.00)
--- NOTE | 2017-08-18 10:03 | HHI.PR ---
Subjective Remarks in no acute distress. although with still some nausea but overall doing better. headache has almost resolved. no new complaints. Objective Vitals Vital Signs Date Time Temp Pulse Resp B/P (MAP) Pulse Ox O2 Delivery O2 Flow Rate FiO2 08/18/17 08:00 97.9 64 19 127/59 (81) 97 08/18/17 00:00 98.3 69 18 123/64 (83) 98 08/17/17 20:00 97.7 67 18 128/57 (80) 100 08/17/17 16:00 98.0 61 18 106/50 (68) 99 08/17/17 13:33 18 08/17/17 12:00 98.9 66 18 135/60 (85) 99 I/O 08/17/17 08/17/17 08/17/17 08/18/17 08/18/17 08/18/17 07:00 15:00 23:00 07:00 15:00 23:00 Intake Total 480 ml Output Total 200 ml Balance -200 ml 480 ml Intake Oral 480 ml Emesis 200 ml # Voids 4 2 Result Diagram: 08/17/17 0511 08/17/171999 Objective Remarks GENERAL: This is a well-nourished, well-developed patient, in no apparent distress. CARDIOVASCULAR: Regular rate and regular rhythm without murmurs, gallops, or rubs. RESPIRATORY: Clear to auscultation. Breath sounds equal bilaterally. No wheezes , rales, or rhonchi. GASTROINTESTINAL: Abdomen soft, non-tender, nondistended. Normal, active bowel sounds MUSCULOSKELETAL: Extremities without clubbing, cyanosis, or edema. NEURO: Alert & Oriented x4 to person, place, time, situation. Moves all ext x4 Medications and IVs Inpatient Medications Acetaminophen (Tylenol) 650 mg Q4H PRN PO TEMP > 100.4; Start 08/16/17 at 01:30 Bisacodyl (Dulcolax Supp) 10 mg DAILY PRN RECTAL SEVERE CONSITIPATION; Start at 01:30 Butalbital/ Aspirin/Caffeine (Fiorinal 325-40-50) 1 cap ONCE ONCE PO Last administered on 08/17/17at 09:38; Start 08/17/17 at 10:00; Stop 08/17/17 at 10:01; Status DC Enoxaparin Sodium (Lovenox Inj) 40 mg Q24H SQ Last administered on 08/18/17at 05: 06; Start 08/16/17 at 04:00 Hydromorphone HCl (Dilaudid Pf Inj) 1 mg ONCE ONCE IV PUSH Last administered on 08/15/17at 22:42; Start 08/15/17 at 22:30; Stop 08/15/17 at 22:31; Status DC Lactulose (Lactulose Liq) 30 ml DAILY PRN PO SEVERE CONSITIPATION; Start at 01:30 Lorazepam (Ativan) 0.5 mg Q8H PRN PO ANXIETY; Start 08/16/17 at 01:30 Magnesium Hydroxide (Milk Of Magnesia Liq) 30 ml Q12H PRN PO Mild constipation ; Start 08/16/17 at 01:30 Naloxone HCl (Narcan Inj) 0.4 mg UNSCH PRN IV PUSH SEE LABEL COMMENTS; Start at 01:30 Ondansetron HCl (Zofran Odt) 4 mg Q6H PO ; Start 08/17/17 at 08:45; Stop at 10:43; Status DC Oxycodone HCl (OxyCONTIN CR) 40 mg ONCE ONCE PO Last administered on 08/16/17at 02:23; Start 08/16/17 at 02:15; Stop 08/16/17 at 02:16; Status DC Oxycodone HCl (Roxicodone) 15 mg Q6HR PO Last administered on 08/18/17at 05:06; Start 08/16/17 at 06:00 Patient Own Medication PT OWN MED:Nabumetone 750 MG DOSE DAILY PO ; Start at 09:00; Status Future Hold Prochlorperazine Edisylate (Compazine Inj) 5 mg ONCE ONCE IM Last administered on 08/18/17at 01:48; Start 08/18/17 at 01:45; Stop 08/18/17 at 01:46; Status DC Prochlorperazine Maleate (Compazine) 5 mg Q6H PRN PO NAUSEA OR VOMITING; Start 08/16/17 at 01:30; Stop 08/16/17 at 09:26; Status DC Senna/Docusate Sodium (Darlene-Colace) 1 tab BID PO Last administered on 08/18/17at 08:26; Start 08/16/17 at 09:00 Sennosides (Senokot) 17.2 mg Q12H PRN PO Moderate constipation; Start 08/16/17 at 01:30 Sodium Chloride (NS Flush) 2 ml BID IV FLUSH Last administered on 08/18/17at 08: 27; Start 08/16/17 at 09:00 Sodium Chloride (Sodium Chloride) 1 gm ONCE ONCE PO Last administered on at 21:56; Start 08/17/17 at 21:45; Stop 08/17/17 at 21:46; Status DC A/P Assessment and Plan A/P 1. Hyponatremia- likely due to persistent nausea/ vomiting/ and SIADH continue sodium tablet. monitor sodium level closely. nephrology consult appreciated; will consider Tolvaptan. continue fluid restriction. 2. Weakness/fatigue May be secondary to hyponatremia Plan as above 3. Headache/vomiting- overall improved. Likely secondary to change in patient's pain medication regimen Holding fentanyl Restarted OxyContin oncology consulted. 4. Small cell lung cancer Follow up as an outpatient Dr. Kamara consulted, appreciate recommendations DVt prophylaxis with subq Lovenox Discharge Planning when the sodium level has improved. Dinorah Luong MD Aug 18, 2017 10:03
--- NOTE | 2017-08-18 11:50 | PD.CONS ---
[facility] Service Nephrology Consult Requested By Reason for Consult Hyponatremia Primary Care Physician Shelli Leonard MD History of Present Illness This is a 52 y/o female patient with SCLC who had her pain medication changed to fentanyl patch from oral OxyContin. She began to have nausea/vomiting for several days, was admitted here on 08/15 for same complaints. Her serum sodium level was 117 on arrival, has improved to 122 today. She was on IVF initially, now is on NaCl tabs. We were consulted to assist with management. Her renal function is normal. She is not in distress, and is a full code. (Ayleen Perez) Review of Systems Constitutional: COMPLAINS OF: Change in appetite, DENIES: Fatigue, Weight gain , Weight loss Respiratory: DENIES: Shortness of breath Cardiovascular: DENIES: Lower Extremity Edema Gastrointestinal: COMPLAINS OF: Nausea, Vomiting, DENIES: Abdominal pain ( Ayleen Perez) Past Family Social History Allergies: Coded Allergies: codeine (Verified Allergy, Severe, Hives, SOB, 08/15/17) diatrizoate meglumine (Unverified Allergy, Severe, HIVES, 08/15/17) REACTION TO IV DYE ONLY (PO CAN TOLERATE) gadobenic acid (Unverified Allergy, Severe, HIVES, 08/15/17) REACTION TO IV DYE ONLY (PO CAN TOLERATE) gadodiamide (Unverified Allergy, Severe, HIVES, 08/15/17) REACTION TO IV DYE ONLY (PO CAN TOLERATE) gadoteridol (Unverified Allergy, Severe, HIVES, 08/15/17) REACTION TO IV DYE ONLY (PO CAN TOLERATE) iodixanol (Unverified Allergy, Severe, HIVES, 08/15/17) REACTION TO IV DYE ONLY (PO CAN TOLERATE) iohexol (Unverified Allergy, Severe, HIVES, 08/15/17) REACTION TO IV DYE ONLY (PO CAN TOLERATE) morphine (Verified Allergy, Severe, Hives, SHORTNESS OF BREATH , 08/15/17) ondansetron (Verified Allergy, Severe, Hives, 08/15/17) Iodinated Contrast- Oral and IV Dye (Verified Allergy, Intermediate, Hives , 08/15/17) azithromycin (Unverified Allergy, Mild, HIVES, 08/15/17) Past Medical History Small Cell LC Past Surgical History Hernia repair Colon resection Cholecystectomy Reported Medications Fentanyl Patch 72 HR (Fentanyl) 37.5 Mcg/Hr Patch 37.5 Mcg T-DERMAL Q72H Remove old patch when new one placed. Amitiza (Lubiprostone) 24 Mcg Cap 24 Mg PO BID Prochlorperazine Maleate 5 Mg Tab 5 Mg PO Q6H PRN Oxycodone (Oxycodone HCl) 15 Mg Tab 15 Mg PO Q6HR Lorazepam 0.5 Mg Tab 0.5 Mg PO Q8H PRN Nabumetone 750 Mg Tab 750 Mg PO DAILY Active Ordered Medications Current Medications Medications (Trade) Dose Ordered Sig/Skyler Route Start Time Stop Time Status Last Admin (Ativan) 0.5 mg Q8H PRN PO 08/16/17 01:30 Patient Own Medication PT OWN MED: Lubiprostone (Amiti... BID PO 08/16/17 09:00 Future Hold Patient Own Medication PT OWN MED:Nabumetone 750 MG DOSE DAILY PO 08/16/17 09:00 Future Hold (Roxicodone) 15 mg Q6HR PO 08/16/17 06:00 08/18/17 05:06 (OxyCONTIN CR) 40 mg Q12HR PO 08/16/17 09:00 08/18/17 08:26 (NS Flush) 2 ml UNSCH PRN IV FLUSH 08/16/17 01:30 (NS Flush) 2 ml BID IV FLUSH 08/16/17 09:00 08/18/17 08:27 (Tylenol) 650 mg Q4H PRN PO 08/16/17 01:30 (Lovenox Inj) 40 mg Q24H SQ 08/16/17 04:00 08/18/17 05:06 (Narcan Inj) 0.4 mg UNSCH PRN IV PUSH 08/16/17 01:30 (Darlene-Colace) 1 tab BID PO 08/16/17 09:00 08/18/17 08:26 (Milk Of Magnesia Liq) 30 ml Q12H PRN PO 08/16/17 01:30 (Senokot) 17.2 mg Q12H PRN PO 08/16/17 01:30 (Dulcolax Supp) 10 mg DAILY PRN RECTAL 08/16/17 01:30 (Lactulose Liq) 30 ml DAILY PRN PO 08/16/17 01:30 (Compazine Inj) 5 mg Q6H PRN IV PUSH 08/16/17 10:00 08/18/17 10:24 (Sodium Chloride) 1 gm DAILY PO 08/17/17 09:00 08/18/17 08:26 Family History Non contributory Social History Former heavy smoker, occasional some day smoker No ETOH 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 [employer] Full Code Independent with ADLs (Ayleen Perez) Physical Exam Vital Signs Vital Signs Date Time Temp Pulse Resp B/P (MAP) Pulse Ox O2 Delivery O2 Flow Rate FiO2 08/18/17 08:00 97.9 64 19 127/59 (81) 97 08/18/17 00:00 98.3 69 18 123/64 (83) 98 08/17/17 20:00 97.7 67 18 128/57 (80) 100 08/17/17 16:00 98.0 61 18 106/50 (68) 99 08/17/17 13:33 18 08/17/17 12:00 98.9 66 18 135/60 (85) 99 Physical Exam Middle aged female Awake, ambulatory, follows commands, CN II-XII intact Lungs clear S1/S2, RRR Abd soft, slightly tender No extremity edema Skin intact Laboratory Laboratory Tests Test 08/17/17 14:03 08/17/17 20:00 08/18/17 08:47 08/18/17 10:05 Sodium Level 121 122 121 Blood Urea Nitrogen 5 Creatinine 0.47 Random Glucose 103 Calcium Level 7.9 Potassium Level 3.7 Chloride Level 91 Carbon Dioxide Level 21.7 Anion Gap 8 Estimat Glomerular Filtration Rate 139 Serum Osmolality 249 Uric Acid 1.7 Thyroid Stimulating Hormone 3rd Gen 2.000 Urine Osmolality 581 Urine Random Sodium 88 (Ayleen Perez) Result Diagram: 08/17/17 0511 08/18/17 0847 Assessment and Plan Problem List: (1) Hyponatremia ICD Codes: E87.1 - Hypo-osmolality and hyponatremia Plan: Acute on Chronic, in Jun her serum Na was 125-127 She has normal renal function Low serum and urine osmolality, low uric acid and high urine sodium 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 Was on IVF, may have had a component of hypovolemic hyponatremia on admission due to nausea/vomiting Was given 0.9% NS, now on Salt tabs daily Increase oral NaCl to 1 g BID Follow labs, clinically improving Obtain AM cortisol level She is tolerating oral fluids, restrict oral fluids to 1500 ml per day for now Consider tolvaptan in upcoming days, in that case no fluid restriction is required (2) Lung cancer ICD Codes: C34.90 - Malignant neoplasm of unspecified part of unspecified bronchus or lung Status: Acute Plan: Follows with oncology Appreciate recommendations (3) Nausea & vomiting ICD Codes: R11.2 - Nausea with vomiting, unspecified Status: Acute Plan: Antiemetics as needed Diet as tolerated (Ayleen Perez) Assessment and Plan patient was seen and examined. Agree with above assessment and plan. 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 (Daryn Guzman MD) Ayleen Perez Aug 18, 2017 11:50 Daryn Guzman MD Aug 19, 2017 10:20
[2017-08-18 12:45] VITALS: BP 140/60; PULSE 67; RESP 16; TEMP 98.9; O2SAT 96
--- NOTE | 2017-08-18 13:38 | PD.ONC.PN ---
Subjective Subjective Remarks Afebrile overnight. patient resting in bed. she feels very fatigued and has a mild headache. she is thirsty and on fluid restriction due to her low sodium. Objective Data Date Time Temp Pulse Resp B/P (MAP) Pulse Ox O2 Delivery O2 Flow Rate FiO2 08/18/17 08:00 97.9 64 19 127/59 (81) 97 08/18/17 00:00 98.3 69 18 123/64 (83) 98 08/17/17 20:00 97.7 67 18 128/57 (80) 100 08/17/17 16:00 98.0 61 18 106/50 (68) 99 08/17/17 13:33 18 Result Diagram: 08/17/17 0511 08/18/17 0847 Laboratory Results Laboratory Tests Test 08/17/17 14:03 08/17/17 20:00 08/18/17 08:47 08/18/17 10:05 Sodium Level 121 MEQ/L 122 MEQ/L 121 MEQ/L Blood Urea Nitrogen 5 MG/DL Creatinine 0.47 MG/DL Random Glucose 103 MG/DL Calcium Level 7.9 MG/DL Potassium Level 3.7 MEQ/L Chloride Level 91 MEQ/L Carbon Dioxide Level 21.7 MEQ/L Anion Gap 8 MEQ/L Estimat Glomerular Filtration Rate 139 ML/MIN Serum Osmolality 249 MOSM/KG Uric Acid 1.7 MG/DL Thyroid Stimulating Hormone 3rd Gen 2.000 uIU/ML Urine Osmolality 581 MOSM/KG Urine Random Sodium 88 MEQ/L Administered Medications Medications (Trade) Dose Ordered Sig/Skyler Route PRN Reason Start Time Stop Time Status Last Admin Dose Admin Oxycodone HCl (Roxicodone) 15 mg Q6HR PO 08/16/17 06:00 08/18/17 05:06 Oxycodone HCl (OxyCONTIN CR) 40 mg Q12HR PO 08/16/17 09:00 08/18/17 08:26 Sodium Chloride (NS Flush) 2 ml BID IV FLUSH 08/16/17 09:00 08/18/17 08:27 Enoxaparin Sodium (Lovenox Inj) 40 mg Q24H SQ 08/16/17 04:00 08/18/17 05:06 Senna/Docusate Sodium (Adela-Colace) 1 tab BID PO 08/16/17 09:00 08/18/17 08:26 Prochlorperazine Edisylate (Compazine Inj) 5 mg Q6H PRN IV PUSH NAUSEA 08/16/17 10:00 08/18/17 10:24 Objective Remarks GENERAL: Middle aged female, lying in bed in nad. SKIN: Warm and dry. HEAD: Normocephalic. EYES: No injection or drainage. NECK: Supple, trachea midline. CARDIOVASCULAR: Regular rate and rhythm RESPIRATORY: Breath sounds equal bilaterally. No accessory muscle use. GASTROINTESTINAL: Abdomen soft, non-tender, nondistended. EXTREMITIES: No cyanosis NEUROLOGICAL: awake and alert. normal speech. Assessment/Plan Assessment 51y/o female with metastatic SCLC. Admitted with headache, nausea and vomiting. -- initially diagnosed in 01/2017. +extensive bony metastases --treated with palliative radiation to the pelvic bones --s/p 3 cycles of cisplatin and etoposide in [facility] --s/p cycle 1 carboplatin/ etoposide 07/2017 locally. Plan 1. Hyponatremia: consult nephrology. continue fluid restriction. may need to consider SAMSCA. 2. nausea and vomiting: improved. tolerating a regular diet (with fluid restriction) continue PRN anti-emetics. 3. Pain: states her pain is controlled at present on current regimen of Oxycontin + oxycodone 4. constipation: currently on a bowel regimen of adela-colace BID. she states she has had problems with constipation in the past and has used mag citrate with success. we will try mag, citrate today. Selena Casillas Aug 18, 2017 13:38
[2017-08-18] MEDS ORDERED: MAGNESIUM CITRATE SOLN 300 ML BTL PO ONE (13:45)
[2017-08-18 16:52] VITALS: BP 135/64; PULSE 65; RESP 16; TEMP 98.7; O2SAT 96
[2017-08-18] MEDS: LORazepam 0.5 MG TAB PO PRN (18:43)
[2017-08-18] MEDS ORDERED: ACETAMIN 325 MG/BUTALBITAL 50 MG/CAFFEINE 40 MG TAB PO ONE ×2 (19:45→21:15)
[2017-08-18 20:00] VITALS: BP 150/72; PULSE 73; RESP 20; TEMP 99; O2SAT 98
[2017-08-18] MEDS ORDERED: SODIUM CHLORIDE 1 GRAM TAB PO SCH (21:00)
[2017-08-19] VITALS: BP 148/74; PULSE 68; RESP 20; TEMP 98.3; O2SAT 99
[2017-08-19] MEDS ORDERED: ASPIRIN 325 MG/CAFFEINE 40 MG/BUTALBITAL 50 MG CAP PO ONE (03:30)
[2017-08-19] MEDS ORDERED: diphenhydrAMINE HCL 50 MG/ML VIAL IV PUSH ONE (03:30)
[2017-08-19] MEDS ORDERED: PROCHLORPERAZINE INJ 10 MG/2 ML VIAL IV PUSH ONE (03:30)
[2017-08-19 04:00] VITALS: BP 168/82; PULSE 66; RESP 20; TEMP 98.2; O2SAT 98
[2017-08-19 07:21] LABS: AUTOMATED NEUTROPHIL # 1.1 TH/MM3 (1.8-7.7); BASOPHIL % 0.7 % (0.0-2.0); EOSINOPHIL % 1.9 % (0.0-4.0); HEMATOCRIT 33.6 % (35.0-46.0); HEMOGLOBIN 11.9 GM/DL (11.6-15.3); LYMPH % 36.5 % (9.0-44.0); LYMPHOCYTE # 0.8 TH/MM3 (1.0-4.8); MEAN CELL VOLUME 84.1 FL (80.0-100.0); MEAN CORPUSCULAR HEMOGLOBIN 29.7 PG (27.0-34.0); MEAN CORPUSCULAR HGB CONC 35.4 % (32.0-36.0); MEAN PLATELET VOLUME 6.9 FL (7.0-11.0); MONO % 10.3 % (0.0-8.0); MONOCYTE # 0.2 TH/MM3 (0-0.9); NEUT % 50.6 % (16.0-70.0); PLATELET COUNT 160 TH/MM3 (150-450); RED CELL DISTRIBUTION WIDTH 14.1 % (11.6-17.2); WHITE BLOOD COUNT 2.1 TH/MM3 (4.0-11.0)
[2017-08-19 07:38] LABS: BICARBONATE 22.4 MEQ/L (21.0-32.0); CALCIUM 7.7 MG/DL (8.5-10.1); CREATININE 0.4 MG/DL (0.50-1.00)
[2017-08-19] MEDS: oxyCODONE HCL 40 MG CONTROLLED RELEASE TAB PO SCH ×2 (08:32→20:38)
[2017-08-19] MEDS: SODIUM CHLORIDE 0.9% FLUSH 10 ML FLUSH IV FLUSH SCH ×2 (08:32→20:38)
[2017-08-19] MEDS: DOCUSATE SODIUM 50 MG/SENNA 8.6 MG TAB PO SCH ×2 (08:32→20:38)
--- NOTE | 2017-08-19 08:32 | PD.ONC.PN ---
Subjective Subjective Remarks Reports nausea and head aches. Unable to eat much, sodium tablets have been causing worsened nausea. VS, labs, medications and nephrology notes reviewed. Sodium remains at 121. Objective Data Date Time Temp Pulse Resp B/P (MAP) Pulse Ox O2 Delivery O2 Flow Rate FiO2 08/19/17 04:00 98.2 66 20 168/82 (110) 98 08/19/17 00:00 98.3 68 20 148/74 (98) 99 08/18/17 20:00 99.0 73 20 150/72 (98) 98 08/18/17 16:52 98.7 65 16 135/64 (87) 96 08/19/17 08/19/17 08/19/17 07:00 15:00 23:00 Intake Total 240 ml Balance 240 ml Result Diagram: 08/19/17 0555 08/19/17 0555 Laboratory Results Laboratory Tests Test 08/18/17 08:47 08/18/17 10:05 08/19/17 05:55 Blood Urea Nitrogen 5 MG/DL 5 MG/DL Creatinine 0.47 MG/DL 0.40 MG/DL Random Glucose 103 MG/DL 100 MG/DL Calcium Level 7.9 MG/DL 7.7 MG/DL Sodium Level 121 MEQ/L 120 MEQ/L Potassium Level 3.7 MEQ/L 3.5 MEQ/L Chloride Level 91 MEQ/L 88 MEQ/L Carbon Dioxide Level 21.7 MEQ/L 22.4 MEQ/L Anion Gap 8 MEQ/L 10 MEQ/L Estimat Glomerular Filtration Rate 139 ML/MIN 167 ML/MIN Serum Osmolality 249 MOSM/KG Uric Acid 1.7 MG/DL Thyroid Stimulating Hormone 3rd Gen 2.000 uIU/ML Urine Osmolality 581 MOSM/KG Urine Random Sodium 88 MEQ/L White Blood Count 2.1 TH/MM3 Red Blood Count 4.00 MIL/MM3 Hemoglobin 11.9 GM/DL Hematocrit 33.6 % Mean Corpuscular Volume 84.1 FL Mean Corpuscular Hemoglobin 29.7 PG Mean Corpuscular Hemoglobin Concent 35.4 % Red Cell Distribution Width 14.1 % Platelet Count 160 TH/MM3 Mean Platelet Volume 6.9 FL Neutrophils (%) (Auto) 50.6 % Lymphocytes (%) (Auto) 36.5 % Monocytes (%) (Auto) 10.3 % Eosinophils (%) (Auto) 1.9 % Basophils (%) (Auto) 0.7 % Neutrophils # (Auto) 1.1 TH/MM3 Lymphocytes # (Auto) 0.8 TH/MM3 Monocytes # (Auto) 0.2 TH/MM3 Eosinophils # (Auto) 0.0 TH/MM3 Basophils # (Auto) 0.0 TH/MM3 CBC Comment DIFF FINAL Differential Comment Random Cortisol 4.5 MCG/DL Administered Medications Medications (Trade) Dose Ordered Sig/Skyler Route PRN Reason Start Time Stop Time Status Last Admin Dose Admin Lorazepam (Ativan) 0.5 mg Q8H PRN PO ANXIETY 08/16/17 01:30 08/18/17 18:43 Oxycodone HCl (Roxicodone) 15 mg Q6HR PO 08/16/17 06:00 08/19/17 00:50 Oxycodone HCl (OxyCONTIN CR) 40 mg Q12HR PO 08/16/17 09:00 08/18/17 23:44 Sodium Chloride (NS Flush) 2 ml BID IV FLUSH 08/16/17 09:00 08/18/17 23:45 Enoxaparin Sodium (Lovenox Inj) 40 mg Q24H SQ 08/16/17 04:00 08/18/17 23:45 Senna/Docusate Sodium (Adela-Colace) 1 tab BID PO 08/16/17 09:00 08/18/17 08:26 Prochlorperazine Edisylate (Compazine Inj) 5 mg Q6H PRN IV PUSH NAUSEA 08/16/17 10:00 08/18/17 10:24 Sodium Chloride (Sodium Chloride) 1 gm BID PO 08/18/17 21:00 08/19/17 00:49 Objective Remarks GENERAL APPEARANCE: Ms. Moncada is a middle-aged female, she is of medium height and is heavyset, she has alopecia of chemotherapy. She is sitting up in bed and appears to be in no acute distress. HEENT: Head atraumatic, normocephalic. Conjunctivae are mildly pale. Sclerae are anicteric, EOMI, PERRLA. Oral exam, no pharyngeal erythema. NECK: No palpable cervical or supraclavicular lymphadenopathy. RESPIRATORY: Good air movement bilaterally. No added breath sounds. CARDIOVASCULAR: Regular rate and rhythm. S1, S2. No obvious murmurs, rubs or gallops. ABDOMEN: Protuberant belly, soft and nontender, nondistended. No palpable organ enlargement. EXTREMITIES: Lower extremities, no pretibial edema, no calf tenderness. 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 MUSCULOSKELETAL: Good muscle mass, tone and strength. SKIN: Cool and moist. No bruising noted. Assessment/Plan Assessment 51y/o female with metastatic SCLC. Admitted with headache, nausea and vomiting. -- initially diagnosed in 01/2017. +extensive bony metastases --treated with palliative radiation to the pelvic bones --s/p 3 cycles of cisplatin and etoposide in [facility] --s/p cycle 1 carboplatin/ etoposide 07/2017 locally. Plan 1. Hyponatremia: On NaCl 1000mg po BID. Fluid restriction. May need a vaptan class drug. Likely SIADH. 2. nausea and vomiting: Persist, continue anti emetics. 3. Pain: states her pain is controlled at present on current regimen of Oxycontin + oxycodone. 4. constipation: currently on a bowel regimen of adela-colace BID. she states she has had problems with constipation in the past and has used mag citrate with success. we will try mag, citrate today. 5. Head ache: Persistent, will order CT head to rule out intracranial pathology. Continue on going supportive care. Tayo Kamara MD Aug 19, 2017 08:32
[2017-08-19 08:41] VITALS: BP 137/80; PULSE 65; RESP 16; TEMP 98.5; O2SAT 98
[2017-08-19] MEDS: TOLVAPTAN 15 MG TAB PO SCH (09:41)
--- NOTE | 2017-08-19 09:41 | HHI.NPPN ---
Subjective Interval History Still reporting nausea. Serum Na 120 today. (Ayleen Perez) Review of Systems Gastrointestinal Gastrointestinal: Nausea & Vomiting (Ayleen Perez) Objective Data Data Vital Signs Date Time Temp Pulse Resp B/P (MAP) Pulse Ox O2 Delivery O2 Flow Rate FiO2 08/19/17 08:41 98.5 65 16 137/80 (99) 98 08/19/17 04:00 98.2 66 20 168/82 (110) 98 08/19/17 00:00 98.3 68 20 148/74 (98) 99 08/18/17 20:00 99.0 73 20 150/72 (98) 98 08/18/17 16:52 98.7 65 16 135/64 (87) 96 (Ayleen Perez) -: 08/19/17 0555 08/19/17 0555 Physical Exam General Appearance: Well Developed, Comfortable Appearance Remarks alopecia (Ayleen Perez) Eyes Eye Exam: Pupils Equal, Pupils Reactive (Ayleen Perez) Neck Neck Exam: Neck Supple (Ayleen Perez) Pulmonary Resp Exam: Clear Bilaterally, Breath Sounds Equal (Ayleen Preez) Cardiology CV Exam: Regular, Normal Sinus Rhythm (Ayleen Perez) Gastrointestinal/Abdomen GI Exam: Soft, Non-Tender, Bowel Sounds Present (Ayleen Perez) Musculoskeletal MS Exam: Joints Intact, Normal Gait, Normal Tone, Good Strength (Ayleen Perez) Integumentary Skin Exam: Clear, Warm, Dry, Intact (Ayleen Perez) Extremeties Extremities Exam: No Edema, Pedal Pulses Palpable (Ayleen Perez) Neurologic Neuro Exam: Alert, Awake, Oriented, Speech Clear, Moving All Extremities (Ayleen Perez) Psychiatric Psych Exam: Appropriate Responses (Ayleen Perez) Assessment/Plan Discussed Condition With: Patient Electrolyte Assessment: Hyponatremia Problem List: (1) Hyponatremia ICD Codes: E87.1 - Hypo-osmolality and hyponatremia Plan: Acute on Chronic, in Jun her serum Na was 125-127 She has normal renal function Labs indicating SIADH due to lung cancer Stop NaCl tabs, start Tolvaptan No fluid restriction is required Repeat labs daily (2) Lung cancer ICD Codes: C34.90 - Malignant neoplasm of unspecified part of unspecified bronchus or lung Status: Acute Plan: Follows with oncology Appreciate recommendations (3) Nausea & vomiting ICD Codes: R11.2 - Nausea with vomiting, unspecified Status: Acute Plan: Antiemetics as needed Diet as tolerated (Ayleen Perez) Plan patient was seen and examined. Agree with above assessment and plan. Patient has SIADH. Start Samsca. He also appears to have adrenal insufficiency: may need steroid replacement. Rule out adrenal mets. (Daryn Guzman MD) Ayleen Perez Aug 19, 2017 09:41 Daryn Guzman MD Aug 19, 2017 10:25
--- NOTE | 2017-08-19 11:17 | HHI.PR ---
Subjective Remarks in no acute distress. although with still some nausea but overall doing better. headache has almost resolved. no new complaints. 4-[address] WILL GET CT OF HEAD DW RN AND PATIENT AND CM DOES NOT LIKE SALT TABS TO GET SAMSCA TODAY Objective Vitals Vital Signs Date Time Temp Pulse Resp B/P (MAP) Pulse Ox O2 Delivery O2 Flow Rate FiO2 08/19/17 08:41 98.5 65 16 137/80 (99) 98 08/19/17 04:00 98.2 66 20 168/82 (110) 98 08/19/17 00:00 98.3 68 20 148/74 (98) 99 08/18/17 20:00 99.0 73 20 150/72 (98) 98 08/18/17 16:52 98.7 65 16 135/64 (87) 96 I/O 08/18/17 08/18/17 08/18/17 08/19/17 08/19/17 08/19/17 07:00 15:00 23:00 07:00 15:00 23:00 Intake Total 200 ml 240 ml Output Total 400 ml Balance -200 ml 240 ml Intake Oral 200 ml 240 ml Output Urine Total 400 ml # Voids 2 Result Diagram: 08/19/17 0555 08/19/17 0555 Other Results Laboratory Tests Test 08/16/17 12:36 08/16/17 20:04 08/17/17 02:47 08/17/17 05:11 Blood Urea Nitrogen 7 MG/DL 4 MG/DL Creatinine 0.39 MG/DL 0.42 MG/DL Random Glucose 83 MG/DL 82 MG/DL Total Protein 6.2 GM/DL 6.2 GM/DL Calcium Level 7.1 MG/DL 7.1 MG/DL Sodium Level 121 MEQ/L 121 MEQ/L 120 MEQ/L 120 MEQ/L Potassium Level 3.3 MEQ/L 3.7 MEQ/L Chloride Level 90 MEQ/L 91 MEQ/L Carbon Dioxide Level 20.9 MEQ/L 21.6 MEQ/L Anion Gap 10 MEQ/L 7 MEQ/L Estimat Glomerular Filtration Rate 172 ML/MIN 158 ML/MIN Protein Corrected Calcium 7.6 MG/DL 7.6 MG/DL Thyroid Stimulating Hormone 3rd Gen 1.450 uIU/ML Random Cortisol 7.0 MCG/DL Adrenocorticotropic Hormone 16 pg/mL White Blood Count 2.1 TH/MM3 Red Blood Count 4.17 MIL/MM3 Hemoglobin 12.4 GM/DL Hematocrit 35.1 % Mean Corpuscular Volume 84.2 FL Mean Corpuscular Hemoglobin 29.8 PG Mean Corpuscular Hemoglobin Concent 35.4 % Red Cell Distribution Width 14.2 % Platelet Count 149 TH/MM3 Mean Platelet Volume 6.8 FL Neutrophils (%) (Auto) 53.1 % Lymphocytes (%) (Auto) 33.0 % Monocytes (%) (Auto) 10.8 % Eosinophils (%) (Auto) 2.4 % Basophils (%) (Auto) 0.7 % Neutrophils # (Auto) 1.1 TH/MM3 Lymphocytes # (Auto) 0.7 TH/MM3 Monocytes # (Auto) 0.2 TH/MM3 Eosinophils # (Auto) 0.0 TH/MM3 Basophils # (Auto) 0.0 TH/MM3 CBC Comment DIFF FINAL Differential Comment Test 08/17/17 14:03 08/17/17 20:00 08/18/17 08:47 08/18/17 10:05 Sodium Level 121 MEQ/L 122 MEQ/L 121 MEQ/L Blood Urea Nitrogen 5 MG/DL Creatinine 0.47 MG/DL Random Glucose 103 MG/DL Calcium Level 7.9 MG/DL Potassium Level 3.7 MEQ/L Chloride Level 91 MEQ/L Carbon Dioxide Level 21.7 MEQ/L Anion Gap 8 MEQ/L Estimat Glomerular Filtration Rate 139 ML/MIN Serum Osmolality 249 MOSM/KG Uric Acid 1.7 MG/DL Thyroid Stimulating Hormone 3rd Gen 2.000 uIU/ML Urine Osmolality 581 MOSM/KG Urine Random Sodium 88 MEQ/L Test 08/19/17 05:55 White Blood Count 2.1 TH/MM3 Red Blood Count 4.00 MIL/MM3 Hemoglobin 11.9 GM/DL Hematocrit 33.6 % Mean Corpuscular Volume 84.1 FL Mean Corpuscular Hemoglobin 29.7 PG Mean Corpuscular Hemoglobin Concent 35.4 % Red Cell Distribution Width 14.1 % Platelet Count 160 TH/MM3 Mean Platelet Volume 6.9 FL Neutrophils (%) (Auto) 50.6 % Lymphocytes (%) (Auto) 36.5 % Monocytes (%) (Auto) 10.3 % Eosinophils (%) (Auto) 1.9 % Basophils (%) (Auto) 0.7 % Neutrophils # (Auto) 1.1 TH/MM3 Lymphocytes # (Auto) 0.8 TH/MM3 Monocytes # (Auto) 0.2 TH/MM3 Eosinophils # (Auto) 0.0 TH/MM3 Basophils # (Auto) 0.0 TH/MM3 CBC Comment DIFF FINAL Differential Comment Blood Urea Nitrogen 5 MG/DL Creatinine 0.40 MG/DL Random Glucose 100 MG/DL Calcium Level 7.7 MG/DL Sodium Level 120 MEQ/L Potassium Level 3.5 MEQ/L Chloride Level 88 MEQ/L Carbon Dioxide Level 22.4 MEQ/L Anion Gap 10 MEQ/L Estimat Glomerular Filtration Rate 167 ML/MIN Random Cortisol 4.5 MCG/DL Objective Remarks GENERAL: Awake alert and oriented 3 -states she has a dry mouth- talkative and cooperative SKIN: Warm and dry. HEAD: Atraumatic. Normocephalic. EYES: Pupils equal and round. No scleral icterus. No injection or drainage. Extraocular muscles intact ENT: No nasal bleeding or discharge. Mucous membranes pink and moist. NECK: Trachea midline. No JVD. CARDIOVASCULAR: Regular rate and rhythm. S1-S2 no S3 or S4 RESPIRATORY: No accessory muscle use. Clear to auscultation. Breath sounds equal bilaterally. GASTROINTESTINAL: Abdomen soft, non-tender, nondistended. Hepatic and splenic margins not palpable. MUSCULOSKELETAL: Extremities without clubbing, cyanosis, or edema. No obvious deformities. NEUROLOGICAL: Awake and alert. No obvious cranial nerve deficits. Motor grossly within normal limits. Five out of 5 muscle strength in the arms and legs. Normal speech. PSYCHIATRIC: Appropriate mood and affect; insight and judgment normal. Medications and IVs Current Medications Sodium Chloride 1,000 ml @ 2,000 mls/hr Q30M ONCE IV Last administered on 22:43; Start 08/15/17 at 22:30; Stop 08/15/17 at 22:59; Status DC Hydromorphone HCl (Dilaudid Pf Inj) 1 mg ONCE ONCE IV PUSH Last administered on 08/15/17 22:42; Start 08/15/17 at 22:30; Stop 08/15/17 at 22:31; Status DC Prochlorperazine Edisylate (Compazine Inj) 10 mg ONCE ONCE IV PUSH Last administered on 08/15/17 22:43; Start 08/15/17 at 22:30; Stop 08/15/17 at 22:31; Status DC Oxycodone HCl (OxyCONTIN CR) 40 mg ONCE ONCE PO ; Start 08/15/17 at 23:15; Stop 08/15/17 at 23:16; Status Cancel Lorazepam (Ativan) 0.5 mg Q8H PRN PO ANXIETY Last administered on 08/18/17at 18: 43; Start 08/16/17 at 01:30 Prochlorperazine Maleate (Compazine) 5 mg Q6H PRN PO NAUSEA OR VOMITING; Start 08/16/17 at 01:30; Stop 08/16/17 at 09:26; Status DC Patient Own Medication PT OWN MED: Lubiprostone (Amiti... BID PO ; Start at 09:00; Status Future Hold Patient Own Medication PT OWN MED:Nabumetone 750 MG DOSE DAILY PO ; Start at 09:00; Status Future Hold Oxycodone HCl (Roxicodone) 15 mg Q6HR PO Last administered on 08/19/17at 00:50; Start 08/16/17 at 06:00 Oxycodone HCl (OxyCONTIN CR) 40 mg Q12HR PO Last administered on 08/19/17 08:32 ; Start 08/16/17 at 09:00 Sodium Chloride 1,000 ml @ 100 mls/hr Q10H IV Last administered on 08/17/17at 05 :43; Start 08/16/17 at 01:30; Stop 08/17/17 at 08:36; Status DC Sodium Chloride (NS Flush) 2 ml UNSCH PRN IV FLUSH FLUSH AFTER USING IV ACCESS ; Start 08/16/17 at 01:30 Sodium Chloride (NS Flush) 2 ml BID IV FLUSH Last administered on 08/19/17at 08: 32; Start 08/16/17 at 09:00 Acetaminophen (Tylenol) 650 mg Q4H PRN PO TEMP > 100.4; Start 08/16/17 at 01:30 Ondansetron HCl (Zofran Inj) 4 mg Q6H PRN IVP NAUSEA OR VOMITING; Start at 01:30; Status UNV Enoxaparin Sodium (Lovenox Inj) 40 mg Q24H SQ Last administered on 08/18/17at 23: 45; Start 08/16/17 at 04:00 Naloxone HCl (Narcan Inj) 0.4 mg UNSCH PRN IV PUSH SEE LABEL COMMENTS; Start at 01:30 Senna/Docusate Sodium (Darlene-Colace) 1 tab BID PO Last administered on 08/18/17 08:26; Start 08/16/17 at 09:00 Magnesium Hydroxide (Milk Of Magnesia Liq) 30 ml Q12H PRN PO Mild constipation ; Start 08/16/17 at 01:30 Sennosides (Senokot) 17.2 mg Q12H PRN PO Moderate constipation; Start 08/16/17 at 01:30 Bisacodyl (Dulcolax Supp) 10 mg DAILY PRN RECTAL SEVERE CONSITIPATION; Start at 01:30 Lactulose (Lactulose Liq) 30 ml DAILY PRN PO SEVERE CONSITIPATION; Start at 01:30 Oxycodone HCl (OxyCONTIN CR) 40 mg ONCE ONCE PO Last administered on 08/16/17 02:23; Start 08/16/17 at 02:15; Stop 08/16/17 at 02:16; Status DC Prochlorperazine Edisylate (Compazine Inj) 5 mg Q6H PRN IV PUSH NAUSEA Last administered on 08/18/17 10:24; Start 08/16/17 at 10:00 Sodium Chloride (Sodium Chloride) 1 gm DAILY PO Last administered on 08/18/17 08:26; Start 08/17/17 at 09:00; Stop 08/18/17 at 11:53; Status DC Ondansetron HCl (Zofran Odt) 4 mg Q6H PO ; Start 08/17/17 at 08:45; Stop at 10:43; Status DC Butalbital/ Aspirin/Caffeine (Fiorinal 325-40-50) 1 cap ONCE ONCE PO Last administered on 08/17/17at 09:38; Start 08/17/17 at 10:00; Stop 08/17/17 at 10:01; Status DC Sodium Chloride (Sodium Chloride) 1 gm ONCE ONCE PO Last administered on at 21:56; Start 08/17/17 at 21:45; Stop 08/17/17 at 21:46; Status DC Prochlorperazine Edisylate (Compazine Inj) 5 mg ONCE ONCE IM Last administered on 08/18/17at 01:48; Start 08/18/17 at 01:45; Stop 08/18/17 at 01:46; Status DC Sodium Chloride (Sodium Chloride) 1 gm BID PO Last administered on 08/19/17at 00: 49; Start 08/18/17 at 21:00; Stop 08/19/17 at 08:56; Status DC Magnesium Citrate (Citroma Liq) 300 ml ONCE ONCE PO Last administered on at 13:55; Start 08/18/17 at 13:45; Stop 08/18/17 at 13:46; Status DC Acetaminophen/ Butalbital/ Caffeine (Fioricet 325-50-40) 1 tab ONCE ONCE PO ; Start 08/18/17 at 19:45; Stop 08/18/17 at 19:46; Status Cancel Acetaminophen/ Butalbital/ Caffeine (Fioricet 325-50-40) 1 tab ONCE ONCE PO Last administered on 08/18/17at 21:25; Start 08/18/17 at 21:15; Stop 08/18/17 at 21: 16; Status DC Butalbital/ Aspirin/Caffeine (Fiorinal 325-40-50) 1 cap ONCE ONCE PO Last administered on 08/19/17at 04:23; Start 08/19/17 at 03:30; Stop 08/19/17 at 03:31; Status DC Diphenhydramine HCl (Benadryl Inj) 25 mg ONCE ONCE IV PUSH Last administered on 08/19/17at 04:24; Start 08/19/17 at 03:30; Stop 08/19/17 at 03:31; Status DC Prochlorperazine Edisylate (Compazine Inj) 5 mg ONCE ONCE IV PUSH Last administered on 08/19/17at 04:24; Start 08/19/17 at 03:30; Stop 08/19/17 at 03:31; Status DC Tolvaptan (Samsca) 15 mg DAILY PO Last administered on 08/19/17at 09:41; Start at 09:00 A/P Problem List: (1) Lung cancer ICD Code: C34.90 - Malignant neoplasm of unspecified part of unspecified bronchus or lung Status: Acute (2) Hyponatremia ICD Code: E87.1 - Hypo-osmolality and hyponatremia (3) Headache ICD Code: R51 - Headache Status: Acute Assessment and Plan 1. Hyponatremia- likely due to persistent nausea/ vomiting/ and SIADH continue sodium tablet. monitor sodium level closely. nephrology consult appreciated; will consider Tolvaptan. continue fluid restriction. To get Samsca today Does not like salt tablet 2. Weakness/fatigue May be secondary to hyponatremia Plan as above 3. Headache/vomiting- overall improved. Likely secondary to change in patient's pain medication regimen Holding fentanyl Restarted OxyContin oncology consulted. To get CAT scan of the head --not done yet 4. Small cell lung cancer Follow up as an outpatient Dr. Kamara consulted, appreciate recommendations Seen by nephrology regarding the severe hyponatremia will start on Samsca DVt prophylaxis with subq Lovenox Discharge Planning Pending clearance by oncology and nephrology Daniele Muñoz DO Aug 19, 2017 11:17
[2017-08-19 12:04] VITALS: BP 139/68; PULSE 65; RESP 18; TEMP 97.4; O2SAT 100
[2017-08-19 16:10] VITALS: BP 115/64; PULSE 68; RESP 18; TEMP 98; O2SAT 100
[2017-08-19 20:39] VITALS: BP 120/59; PULSE 64; RESP 18; TEMP 98.2; O2SAT 100
[2017-08-20 00:17] VITALS: BP 126/69; PULSE 70; RESP 18; TEMP 98.7; O2SAT 100
[2017-08-20] MEDS: LORazepam 0.5 MG TAB PO PRN ×3 (00:27→21:01)
[2017-08-20 04:05] VITALS: BP 124/67; PULSE 64; RESP 18; TEMP 98.2; O2SAT 98
[2017-08-20] MEDS: ENOXAPARIN SODIUM 40 MG/0.4 ML SYRINGE SQ SCH (04:10)
[2017-08-20 07:01] LABS: AUTOMATED NEUTROPHIL # 1.7 TH/MM3 (1.8-7.7); BASOPHIL % 0.8 % (0.0-2.0); EOSINOPHIL % 1.2 % (0.0-4.0); HEMATOCRIT 37.7 % (35.0-46.0); HEMOGLOBIN 13.1 GM/DL (11.6-15.3); LYMPH % 29.4 % (9.0-44.0); LYMPHOCYTE # 0.8 TH/MM3 (1.0-4.8); MEAN CELL VOLUME 85.6 FL (80.0-100.0); MEAN CORPUSCULAR HEMOGLOBIN 29.7 PG (27.0-34.0); MEAN CORPUSCULAR HGB CONC 34.7 % (32.0-36.0); MEAN PLATELET VOLUME 6.7 FL (7.0-11.0); MONOCYTE # 0.2 TH/MM3 (0-0.9); NEUT % 60.6 % (16.0-70.0); PLATELET COUNT 196 TH/MM3 (150-450); RED BLOOD COUNT 4.41 MIL/MM3 (4.00-5.30); RED CELL DISTRIBUTION WIDTH 14.5 % (11.6-17.2); WHITE BLOOD COUNT 2.8 TH/MM3 (4.0-11.0)
[2017-08-20 07:43] LABS: ALBUMIN 3.7 GM/DL (3.4-5.0); ALKALINE PHOSPHATASE 90 U/L (45-117); ALT (GPT) 17 U/L (10-53); AST (GOT) 16 U/L (15-37); BICARBONATE 25.3 MEQ/L (21.0-32.0); BLOOD UREA NITROGEN 5 MG/DL (7-18); CALCIUM 8.6 MG/DL (8.5-10.1); CHLORIDE 103 MEQ/L (98-107); CREATININE 0.57 MG/DL (0.50-1.00); FREE T4 1.13 NG/DL (0.76-1.46); GLOMERULAR FILTRATION RATE 111 ML/MIN (>89); GLUCOSE,RANDOM 110 MG/DL (74-106); MAGNESIUM 2.2 MG/DL (1.5-2.5); PHOSPHORUS 1.3 MG/DL (2.5-4.9); SODIUM (NA) 135 MEQ/L (136-145); TOTAL BILIRUBIN ADULT 0.2 MG/DL (0.2-1.0); TOTAL PROTEIN 6.6 GM/DL (6.4-8.2)
[2017-08-20 08:00] VITALS: BP 125/56; PULSE 77; RESP 18; TEMP 97.8; O2SAT 99
[2017-08-20] MEDS: oxyCODONE HCL 40 MG CONTROLLED RELEASE TAB PO SCH ×2 (08:26→20:49)
[2017-08-20] MEDS: SODIUM CHLORIDE 0.9% FLUSH 10 ML FLUSH IV FLUSH SCH ×2 (08:26→20:51)
[2017-08-20] MEDS: DOCUSATE SODIUM 50 MG/SENNA 8.6 MG TAB PO SCH ×2 (08:26→20:49)
[2017-08-20] MEDS: TOLVAPTAN 15 MG TAB PO SCH (08:26)
--- NOTE | 2017-08-20 11:52 | RADRPT ---
EXAM DATE/TIME: 08/20/2017 10:37 [facility] COMPARISON: No previous studies available for comparison. INDICATIONS : Cehphalgia, hyponatremia RADIATION DOSE: 35.68 CTDIvol (mGy) MEDICAL HISTORY : Cardiovascular disease. Gastroesophageal reflux disease. Metastatic, bone.Small cell cancer SURGICAL HISTORY : Colon resection. Tubal ligation.Cholecystectomy. ENCOUNTER: Initial ACUITY: 1 day PAIN SCALE: 4/10 LOCATION: cranial TECHNIQUE: Multiple contiguous axial images were obtained of the head. Using automated exposure control and adj ustment of the mA and/or kV according to patient size, radiation dose was kept as low as reasonably a chievable to obtain optimal diagnostic quality images. DICOM format image data is available electro nically for review and comparison. FINDINGS: CEREBRUM: The ventricles are normal for age. No evidence of midline shift, mass lesion, hemorrhage or acute in farction. No extra-axial fluid collections are seen. POSTERIOR FOSSA: The cerebellum and brainstem are intact. The 4th ventricle is midline. The cerebellopontine angle i s unremarkable. EXTRACRANIAL: The visualized portion of the orbits is intact. SKULL: The calvaria is intact. No evidence of skull fracture. CONCLUSION: 1. No acute findings in the brain. Davion Johnson MD on August 20, 2017 at 11:49 Board Certified Radiologist. This report was verified electronically.
[2017-08-20 12:00] VITALS: BP 124/58; PULSE 63; RESP 18; TEMP 98; O2SAT 98
--- NOTE | 2017-08-20 13:19 | PD.ONC.PN ---
Subjective Subjective Remarks Ms. Moncada feels much better this morning, she tells me she is ready to go home. Her headaches have essentially resolved. She was started on tolvaptan yesterday ; Na is up to 135. Objective Data Date Time Temp Pulse Resp B/P (MAP) Pulse Ox O2 Delivery O2 Flow Rate FiO2 08/20/17 12:00 98.0 63 18 124/58 (80) 98 08/20/17 11:56 18 08/20/17 09:26 18 08/20/17 08:00 97.8 77 18 125/56 (79) 99 08/20/17 04:05 98.2 64 18 124/67 (86) 98 08/20/17 00:17 98.7 70 18 126/69 (88) 100 08/19/17 20:39 98.2 64 18 120/59 (79) 100 08/19/17 16:10 98.0 68 18 115/64 (81) 100 08/20/17 08/20/17 08/20/17 07:00 15:00 23:00 Intake Total 720 ml Balance 720 ml Result Diagram: 08/20/17 0547 08/20/17 0547 Laboratory Results Laboratory Tests Test 08/20/17 05:47 White Blood Count 2.8 TH/MM3 Red Blood Count 4.41 MIL/MM3 Hemoglobin 13.1 GM/DL Hematocrit 37.7 % Mean Corpuscular Volume 85.6 FL Mean Corpuscular Hemoglobin 29.7 PG Mean Corpuscular Hemoglobin Concent 34.7 % Red Cell Distribution Width 14.5 % Platelet Count 196 TH/MM3 Mean Platelet Volume 6.7 FL Neutrophils (%) (Auto) 60.6 % Lymphocytes (%) (Auto) 29.4 % Monocytes (%) (Auto) 8.0 % Eosinophils (%) (Auto) 1.2 % Basophils (%) (Auto) 0.8 % Neutrophils # (Auto) 1.7 TH/MM3 Lymphocytes # (Auto) 0.8 TH/MM3 Monocytes # (Auto) 0.2 TH/MM3 Eosinophils # (Auto) 0.0 TH/MM3 Basophils # (Auto) 0.0 TH/MM3 CBC Comment DIFF FINAL Differential Comment Blood Urea Nitrogen 5 MG/DL Creatinine 0.57 MG/DL Random Glucose 110 MG/DL Total Protein 6.6 GM/DL Albumin 3.7 GM/DL Calcium Level 8.6 MG/DL Phosphorus Level 1.3 MG/DL Magnesium Level 2.2 MG/DL Alkaline Phosphatase 90 U/L Aspartate Amino Transf (AST/SGOT) 16 U/L Alanine Aminotransferase (ALT/SGPT) 17 U/L Total Bilirubin 0.2 MG/DL Sodium Level 135 MEQ/L Potassium Level 4.2 MEQ/L Chloride Level 103 MEQ/L Carbon Dioxide Level 25.3 MEQ/L Anion Gap 7 MEQ/L Estimat Glomerular Filtration Rate 111 ML/MIN Free Thyroxine 1.13 NG/DL Thyroid Stimulating Hormone 3rd Gen 1.220 uIU/ML Imaging Studies Last [address] 08/20/17 0000 Signed Impressions: Service Date/Time: Sunday, August 20, 2017 10:37 - CONCLUSION: 1. No acute findings in the brain. Davion Johnson MD Administered Medications Medications (Trade) Dose Ordered Sig/Skyler Route PRN Reason Start Time Stop Time Status Last Admin Dose Admin Lorazepam (Ativan) 0.5 mg Q8H PRN PO ANXIETY 08/16/17 01:30 08/20/17 12:38 Oxycodone HCl (Roxicodone) 15 mg Q6HR PO 08/16/17 06:00 08/20/17 10:56 Oxycodone HCl (OxyCONTIN CR) 40 mg Q12HR PO 08/16/17 09:00 08/20/17 08:26 Sodium Chloride (NS Flush) 2 ml BID IV FLUSH 08/16/17 09:00 08/20/17 08:26 Enoxaparin Sodium (Lovenox Inj) 40 mg Q24H SQ 08/16/17 04:00 08/20/17 04:10 Senna/Docusate Sodium (Darlene-Colace) 1 tab BID PO 08/16/17 09:00 08/20/17 08:26 Prochlorperazine Edisylate (Compazine Inj) 5 mg Q6H PRN IV PUSH NAUSEA 08/16/17 10:00 08/18/17 10:24 Tolvaptan (Samsca) 15 mg DAILY PO 08/19/17 09:00 08/20/17 08:26 Objective Remarks GENERAL APPEARANCE: Ms. Moncada is a middle-aged female, she is of medium height and is heavyset, she has alopecia of chemotherapy. She is sitting up in bed and appears to be in no acute distress. HEENT: Head atraumatic, normocephalic. Conjunctivae are mildly pale. Sclerae are anicteric, EOMI, PERRLA. Oral exam, no pharyngeal erythema. NECK: No palpable cervical or supraclavicular lymphadenopathy. RESPIRATORY: Good air movement bilaterally. No added breath sounds. CARDIOVASCULAR: Regular rate and rhythm. S1, S2. No obvious murmurs, rubs or gallops. ABDOMEN: Protuberant belly, soft and nontender, nondistended. No palpable organ enlargement. EXTREMITIES: Lower extremities, no pretibial edema, no calf tenderness. 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 MUSCULOSKELETAL: Good muscle mass, tone and strength. SKIN: Cool and moist. No bruising noted. Assessment/Plan Assessment 51y/o female with metastatic SCLC. Admitted with headache, nausea and vomiting. -- initially diagnosed in 01/2017. +extensive bony metastases --treated with palliative radiation to the pelvic bones --s/p 3 cycles of cisplatin and etoposide in [facility] --s/p cycle 1 carboplatin/ etoposide 07/2017 locally. Plan 1. Hyponatremia: On fluid restriction and tolvaptan with an impressive increase in Na over the past 24 hrs; 121 to 134. Head aches resolved. 2. Nausea also much improved. 3. Pain: states her pain is controlled at present on current regimen of Oxycontin + oxycodone. 4. constipation: currently on a bowel regimen of darlene-colace BID. she states she has had problems with constipation in the past and has used mag citrate with success. we will try mag, citrate today. Disposition: Clinically much improved. May be d/vanda home from Oncology standpoint as long as she can get the Tolvaptan filled at a pharmacy. Tayo Kamara MD Aug 20, 2017 13:19
--- NOTE | 2017-08-20 13:39 | HHI.NPPN ---
Subjective Interval History Serum Na jumped from 120 to 135. She is requesting discharge. Ambulating in hallways. (Ayleen Perez) Review of Systems Gastrointestinal Gastrointestinal: Nausea & Vomiting (Ayleen Perez) Objective Data Data Vital Signs Date Time Temp Pulse Resp B/P (MAP) Pulse Ox O2 Delivery O2 Flow Rate FiO2 08/20/17 12:00 98.0 63 18 124/58 (80) 98 08/20/17 11:56 18 08/20/17 09:26 18 08/20/17 08:00 97.8 77 18 125/56 (79) 99 08/20/17 04:05 98.2 64 18 124/67 (86) 98 08/20/17 00:17 98.7 70 18 126/69 (88) 100 08/19/17 20:39 98.2 64 18 120/59 (79) 100 08/19/17 16:10 98.0 68 18 115/64 (81) 100 (Ayleen Perez) -: 08/20/17 0547 08/20/17 0547 Imaging Last [address] 08/20/17 0000 Signed Impressions: Service Date/Time: Sunday, August 20, 2017 10:37 - CONCLUSION: 1. No acute findings in the brain. Davion Johnson MD (Ayleen Perez) Physical Exam General Appearance: Well Developed, Comfortable Appearance Remarks alopecia (Ayleen Perez) Eyes Eye Exam: Pupils Equal, Pupils Reactive (Ayleen Perez) Neck Neck Exam: Neck Supple (Ayleen Perez) Pulmonary Resp Exam: Clear Bilaterally, Breath Sounds Equal (Ayleen Perez) Cardiology CV Exam: Regular, Normal Sinus Rhythm (Ayleen Perez) Gastrointestinal/Abdomen GI Exam: Soft, Non-Tender, Bowel Sounds Present (Ayleen Perez) Musculoskeletal MS Exam: Joints Intact, Normal Gait, Normal Tone, Good Strength (Ayleen Perez) Integumentary Skin Exam: Clear, Warm, Dry, Intact (Ayleen Perez) Extremeties Extremities Exam: No Edema, Pedal Pulses Palpable (Ayleen Perez) Neurologic Neuro Exam: Alert, Awake, Oriented, Speech Clear, Moving All Extremities (Ayleen Perez) Psychiatric Psych Exam: Appropriate Responses (Ayleen Perez) Assessment/Plan Discussed Condition With: Patient Electrolyte Assessment: Hyponatremia Problem List: (1) Hyponatremia ICD Codes: E87.1 - Hypo-osmolality and hyponatremia Plan: Acute on Chronic, in Jun her serum Na was 125-127 She has normal renal function Labs indicating SIADH due to lung cancer Given tolvaptan. Sodium corrected faster than anticipated. Stable for discharge, no need for Tolvaptan at home Fluid restriction 1500 ml per day (2) Lung cancer ICD Codes: C34.90 - Malignant neoplasm of unspecified part of unspecified bronchus or lung Status: Acute Plan: Follows with oncology, to continue outpatient (3) Nausea & vomiting ICD Codes: R11.2 - Nausea with vomiting, unspecified Status: Acute Plan: Antiemetics as needed Diet as tolerated Plan He also appears to have adrenal insufficiency: may need steroid replacement. Rule out adrenal mets. (Ayleen Perez) Plan patient was seen and examined. Patient responded to Tolvaptan. Consider possibility of adrenal insufficiency. (Daryn Guzman MD) Ayleen Perez Aug 20, 2017 13:39 Daryn Guzman MD Aug 20, 2017 15:01
--- NOTE | 2017-08-20 15:00 | HHI.PR ---
Subjective Remarks in no acute distress. although with still some nausea but overall doing better. headache has almost resolved. no new complaints. 4-[address] WILL GET CT OF HEAD DW RN AND PATIENT AND CM DOES NOT LIKE SALT TABS TO GET SAMSCA TODAY 4-6 SODIUM TO 135 TODAY WILL FLUID RESTRICT AM LABS HOPEFULLY HOME TOMORROW DW RN AND PT WANTS TO GO OFF FLOOR Objective Vitals Vital Signs Date Time Temp Pulse Resp B/P (MAP) Pulse Ox O2 Delivery O2 Flow Rate FiO2 08/20/17 12:00 98.0 63 18 124/58 (80) 98 08/20/17 11:56 18 08/20/17 09:26 18 08/20/17 08:00 97.8 77 18 125/56 (79) 99 08/20/17 04:05 98.2 64 18 124/67 (86) 98 08/20/17 00:17 98.7 70 18 126/69 (88) 100 08/19/17 20:39 98.2 64 18 120/59 (79) 100 08/19/17 16:10 98.0 68 18 115/64 (81) 100 I/O 08/19/17 08/19/17 08/19/17 08/20/17 08/20/17 08/20/17 07:00 15:00 23:00 07:00 15:00 23:00 Intake Total 240 ml 942 ml 720 ml Balance 240 ml 942 ml 720 ml Intake Oral 240 ml 942 ml 720 ml # Voids 4 3 # Bowel Movements 1 Result Diagram: 08/20/17 0547 08/20/17 0547 Other Results Laboratory Tests Test 08/17/17 20:00 08/18/17 08:47 08/18/17 10:05 08/19/17 05:55 Sodium Level 122 MEQ/L 121 MEQ/L 120 MEQ/L Blood Urea Nitrogen 5 MG/DL 5 MG/DL Creatinine 0.47 MG/DL 0.40 MG/DL Random Glucose 103 MG/DL 100 MG/DL Calcium Level 7.9 MG/DL 7.7 MG/DL Potassium Level 3.7 MEQ/L 3.5 MEQ/L Chloride Level 91 MEQ/L 88 MEQ/L Carbon Dioxide Level 21.7 MEQ/L 22.4 MEQ/L Anion Gap 8 MEQ/L 10 MEQ/L Estimat Glomerular Filtration Rate 139 ML/MIN 167 ML/MIN Serum Osmolality 249 MOSM/KG Uric Acid 1.7 MG/DL Thyroid Stimulating Hormone 3rd Gen 2.000 uIU/ML Urine Osmolality 581 MOSM/KG Urine Random Sodium 88 MEQ/L White Blood Count 2.1 TH/MM3 Red Blood Count 4.00 MIL/MM3 Hemoglobin 11.9 GM/DL Hematocrit 33.6 % Mean Corpuscular Volume 84.1 FL Mean Corpuscular Hemoglobin 29.7 PG Mean Corpuscular Hemoglobin Concent 35.4 % Red Cell Distribution Width 14.1 % Platelet Count 160 TH/MM3 Mean Platelet Volume 6.9 FL Neutrophils (%) (Auto) 50.6 % Lymphocytes (%) (Auto) 36.5 % Monocytes (%) (Auto) 10.3 % Eosinophils (%) (Auto) 1.9 % Basophils (%) (Auto) 0.7 % Neutrophils # (Auto) 1.1 TH/MM3 Lymphocytes # (Auto) 0.8 TH/MM3 Monocytes # (Auto) 0.2 TH/MM3 Eosinophils # (Auto) 0.0 TH/MM3 Basophils # (Auto) 0.0 TH/MM3 CBC Comment DIFF FINAL Differential Comment Random Cortisol 4.5 MCG/DL Test 08/20/17 05:47 White Blood Count 2.8 TH/MM3 Red Blood Count 4.41 MIL/MM3 Hemoglobin 13.1 GM/DL Hematocrit 37.7 % Mean Corpuscular Volume 85.6 FL Mean Corpuscular Hemoglobin 29.7 PG Mean Corpuscular Hemoglobin Concent 34.7 % Red Cell Distribution Width 14.5 % Platelet Count 196 TH/MM3 Mean Platelet Volume 6.7 FL Neutrophils (%) (Auto) 60.6 % Lymphocytes (%) (Auto) 29.4 % Monocytes (%) (Auto) 8.0 % Eosinophils (%) (Auto) 1.2 % Basophils (%) (Auto) 0.8 % Neutrophils # (Auto) 1.7 TH/MM3 Lymphocytes # (Auto) 0.8 TH/MM3 Monocytes # (Auto) 0.2 TH/MM3 Eosinophils # (Auto) 0.0 TH/MM3 Basophils # (Auto) 0.0 TH/MM3 CBC Comment DIFF FINAL Differential Comment Blood Urea Nitrogen 5 MG/DL Creatinine 0.57 MG/DL Random Glucose 110 MG/DL Total Protein 6.6 GM/DL Albumin 3.7 GM/DL Calcium Level 8.6 MG/DL Phosphorus Level 1.3 MG/DL Magnesium Level 2.2 MG/DL Alkaline Phosphatase 90 U/L Aspartate Amino Transf (AST/SGOT) 16 U/L Alanine Aminotransferase (ALT/SGPT) 17 U/L Total Bilirubin 0.2 MG/DL Sodium Level 135 MEQ/L Potassium Level 4.2 MEQ/L Chloride Level 103 MEQ/L Carbon Dioxide Level 25.3 MEQ/L Anion Gap 7 MEQ/L Estimat Glomerular Filtration Rate 111 ML/MIN Free Thyroxine 1.13 NG/DL Thyroid Stimulating Hormone 3rd Gen 1.220 uIU/ML Imaging Last Impressions Head CT 08/20/17 0000 Signed Impressions: Service Date/Time: Sunday, August 20, 2017 10:37 - CONCLUSION: 1. No acute findings in the brain. Davion Johnson MD Objective Remarks GENERAL: Awake alert and oriented 3 -states she has a dry mouth- talkative and cooperative SKIN: Warm and dry. HEAD: Atraumatic. Normocephalic. EYES: Pupils equal and round. No scleral icterus. No injection or drainage. Extraocular muscles intact ENT: No nasal bleeding or discharge. Mucous membranes pink and moist. NECK: Trachea midline. No JVD. CARDIOVASCULAR: Regular rate and rhythm. S1-S2 no S3 or S4 RESPIRATORY: No accessory muscle use. Clear to auscultation. Breath sounds equal bilaterally. GASTROINTESTINAL: Abdomen soft, non-tender, nondistended. Hepatic and splenic margins not palpable. MUSCULOSKELETAL: Extremities without clubbing, cyanosis, or edema. No obvious deformities. NEUROLOGICAL: Awake and alert. No obvious cranial nerve deficits. Motor grossly within normal limits. Five out of 5 muscle strength in the arms and legs. Normal speech. PSYCHIATRIC: Appropriate mood and affect; insight and judgment normal. Procedures NONE Medications and IVs Current Medications Sodium Chloride 1,000 ml @ 2,000 mls/hr Q30M ONCE IV Last administered on at 22:43; Start 08/15/17 at 22:30; Stop 08/15/17 at 22:59; Status DC Hydromorphone HCl (Dilaudid Pf Inj) 1 mg ONCE ONCE IV PUSH Last administered on 08/15/17at 22:42; Start 08/15/17 at 22:30; Stop 08/15/17 at 22:31; Status DC Prochlorperazine Edisylate (Compazine Inj) 10 mg ONCE ONCE IV PUSH Last administered on 08/15/17at 22:43; Start 08/15/17 at 22:30; Stop 08/15/17 at 22:31; Status DC Oxycodone HCl (OxyCONTIN CR) 40 mg ONCE ONCE PO ; Start 08/15/17 at 23:15; Stop 08/15/17 at 23:16; Status Cancel Lorazepam (Ativan) 0.5 mg Q8H PRN PO ANXIETY Last administered on 08/20/17at 12: 38; Start 08/16/17 at 01:30 Prochlorperazine Maleate (Compazine) 5 mg Q6H PRN PO NAUSEA OR VOMITING; Start 08/16/17 at 01:30; Stop 08/16/17 at 09:26; Status DC Patient Own Medication PT OWN MED: Lubiprostone (Amiti... BID PO ; Start at 09:00; Status Future Hold Patient Own Medication PT OWN MED:Nabumetone 750 MG DOSE DAILY PO ; Start at 09:00; Status Future Hold Oxycodone HCl (Roxicodone) 15 mg Q6HR PO Last administered on 08/20/17at 10:56; Start 08/16/17 at 06:00 Oxycodone HCl (OxyCONTIN CR) 40 mg Q12HR PO Last administered on 08/20/17at 08:26 ; Start 08/16/17 at 09:00 Sodium Chloride 1,000 ml @ 100 mls/hr Q10H IV Last administered on 08/17/17at 05 :43; Start 08/16/17 at 01:30; Stop 08/17/17 at 08:36; Status DC Sodium Chloride (NS Flush) 2 ml UNSCH PRN IV FLUSH FLUSH AFTER USING IV ACCESS ; Start 08/16/17 at 01:30 Sodium Chloride (NS Flush) 2 ml BID IV FLUSH Last administered on 08/20/17at 08: 26; Start 08/16/17 at 09:00 Acetaminophen (Tylenol) 650 mg Q4H PRN PO TEMP > 100.4; Start 08/16/17 at 01:30 Ondansetron HCl (Zofran Inj) 4 mg Q6H PRN IVP NAUSEA OR VOMITING; Start at 01:30; Status UNV Enoxaparin Sodium (Lovenox Inj) 40 mg Q24H SQ Last administered on 08/20/17at 04: 10; Start 08/16/17 at 04:00 Naloxone HCl (Narcan Inj) 0.4 mg UNSCH PRN IV PUSH SEE LABEL COMMENTS; Start at 01:30 Senna/Docusate Sodium (Darlene-Colace) 1 tab BID PO Last administered on 08/20/17at 08:26; Start 08/16/17 at 09:00 Magnesium Hydroxide (Milk Of Magnesia Liq) 30 ml Q12H PRN PO Mild constipation ; Start 08/16/17 at 01:30 Sennosides (Senokot) 17.2 mg Q12H PRN PO Moderate constipation; Start 08/16/17 at 01:30 Bisacodyl (Dulcolax Supp) 10 mg DAILY PRN RECTAL SEVERE CONSITIPATION; Start at 01:30 Lactulose (Lactulose Liq) 30 ml DAILY PRN PO SEVERE CONSITIPATION; Start at 01:30 Oxycodone HCl (OxyCONTIN CR) 40 mg ONCE ONCE PO Last administered on 08/16/17at 02:23; Start 08/16/17 at 02:15; Stop 08/16/17 at 02:16; Status DC Prochlorperazine Edisylate (Compazine Inj) 5 mg Q6H PRN IV PUSH NAUSEA Last administered on 08/18/17at 10:24; Start 08/16/17 at 10:00 Sodium Chloride (Sodium Chloride) 1 gm DAILY PO Last administered on 08/18/17at 08:26; Start 08/17/17 at 09:00; Stop 08/18/17 at 11:53; Status DC Ondansetron HCl (Zofran Odt) 4 mg Q6H PO ; Start 08/17/17 at 08:45; Stop at 10:43; Status DC Butalbital/ Aspirin/Caffeine (Fiorinal 325-40-50) 1 cap ONCE ONCE PO Last administered on 08/17/17at 09:38; Start 08/17/17 at 10:00; Stop 08/17/17 at 10:01; Status DC Sodium Chloride (Sodium Chloride) 1 gm ONCE ONCE PO Last administered on at 21:56; Start 08/17/17 at 21:45; Stop 08/17/17 at 21:46; Status DC Prochlorperazine Edisylate (Compazine Inj) 5 mg ONCE ONCE IM Last administered on 08/18/17at 01:48; Start 08/18/17 at 01:45; Stop 08/18/17 at 01:46; Status DC Sodium Chloride (Sodium Chloride) 1 gm BID PO Last administered on 08/19/17at 00: 49; Start 08/18/17 at 21:00; Stop 08/19/17 at 08:56; Status DC Magnesium Citrate (Citroma Liq) 300 ml ONCE ONCE PO Last administered on at 13:55; Start 08/18/17 at 13:45; Stop 08/18/17 at 13:46; Status DC Acetaminophen/ Butalbital/ Caffeine (Fioricet 325-50-40) 1 tab ONCE ONCE PO ; Start 08/18/17 at 19:45; Stop 08/18/17 at 19:46; Status Cancel Acetaminophen/ Butalbital/ Caffeine (Fioricet 325-50-40) 1 tab ONCE ONCE PO Last administered on 08/18/17at 21:25; Start 08/18/17 at 21:15; Stop 08/18/17 at 21: 16; Status DC Butalbital/ Aspirin/Caffeine (Fiorinal 325-40-50) 1 cap ONCE ONCE PO Last administered on 08/19/17at 04:23; Start 08/19/17 at 03:30; Stop 08/19/17 at 03:31; Status DC Diphenhydramine HCl (Benadryl Inj) 25 mg ONCE ONCE IV PUSH Last administered on 08/19/17at 04:24; Start 08/19/17 at 03:30; Stop 08/19/17 at 03:31; Status DC Prochlorperazine Edisylate (Compazine Inj) 5 mg ONCE ONCE IV PUSH Last administered on 08/19/17at 04:24; Start 08/19/17 at 03:30; Stop 08/19/17 at 03:31; Status DC Tolvaptan (Samsca) 15 mg DAILY PO Last administered on 08/20/17at 08:26; Start at 09:00; Stop 08/20/17 at 13:41; Status DC A/P Problem List: (1) Lung cancer ICD Code: C34.90 - Malignant neoplasm of unspecified part of unspecified bronchus or lung Status: Acute (2) Hyponatremia ICD Code: E87.1 - Hypo-osmolality and hyponatremia (3) Headache ICD Code: R51 - Headache Status: Acute Assessment and Plan 1. Hyponatremia- likely due to persistent nausea/ vomiting/ and SIADH continue sodium tablet. monitor sodium level closely. nephrology consult appreciated; will consider Tolvaptan. continue fluid restriction. To get Samsca 4-5 Does not like salt tablet 2. Weakness/fatigue May be secondary to hyponatremia Plan as above 3. Headache/vomiting- overall improved. Likely secondary to change in patient's pain medication regimen Holding fentanyl Restarted OxyContin oncology consulted. To get CAT scan of the head --not done yet--CT OF HEAD IS STABLE 4. Small cell lung cancer Follow up as an outpatient Dr. Kamara consulted, appreciate recommendations Seen by nephrology regarding the severe hyponatremia will start on Samsca ON 4- 5 AND STOPPED AM LABS DVt prophylaxis with subq Lovenox Discharge Planning Pending clearance by oncology and nephrology Daniele Muñoz DO Aug 20, 2017 15:00
[2017-08-20 16:00] VITALS: BP 120/55; PULSE 60; RESP 18; TEMP 98; O2SAT 100
[2017-08-20 16:54] LABS: HEMOGLOBIN A1C 5.3 % (4.3-6.0)
[2017-08-20 20:53] VITALS: BP 121/80; PULSE 74; RESP 18; TEMP 98.2; O2SAT 100
[2017-08-21 00:23] VITALS: BP 132/64; PULSE 79; RESP 18; TEMP 98.3; O2SAT 98
[2017-08-21] MEDS: ENOXAPARIN SODIUM 40 MG/0.4 ML SYRINGE SQ SCH (04:52)
[2017-08-21 04:55] VITALS: BP 145/68; PULSE 75; RESP 18; TEMP 97.7; O2SAT 99
[2017-08-21 06:53] LABS: AUTOMATED NEUTROPHIL # 1.6 TH/MM3 (1.8-7.7); BASOPHIL % 0.9 % (0.0-2.0); EOSINOPHIL # 0.1 TH/MM3 (0-0.4); EOSINOPHIL % 2.3 % (0.0-4.0); HEMATOCRIT 38.5 % (35.0-46.0); HEMOGLOBIN 13.3 GM/DL (11.6-15.3); LYMPH % 33.5 % (9.0-44.0); MEAN CELL VOLUME 85.8 FL (80.0-100.0); MEAN CORPUSCULAR HEMOGLOBIN 29.6 PG (27.0-34.0); MEAN CORPUSCULAR HGB CONC 34.5 % (32.0-36.0); MEAN PLATELET VOLUME 6.8 FL (7.0-11.0); MONO % 9.5 % (0.0-8.0); MONOCYTE # 0.3 TH/MM3 (0-0.9); NEUT % 53.8 % (16.0-70.0); PLATELET COUNT 191 TH/MM3 (150-450); RED BLOOD COUNT 4.49 MIL/MM3 (4.00-5.30); RED CELL DISTRIBUTION WIDTH 14.5 % (11.6-17.2)
[2017-08-21 07:03] LABS: ALBUMIN 3.8 GM/DL (3.4-5.0); ALT (GPT) 19 U/L (10-53); AST (GOT) 15 U/L (15-37); BICARBONATE 25.6 MEQ/L (21.0-32.0); BLOOD UREA NITROGEN 6 MG/DL (7-18); CALCIUM 8.8 MG/DL (8.5-10.1); CHLORIDE 102 MEQ/L (98-107); CREATININE 0.63 MG/DL (0.50-1.00); GLOMERULAR FILTRATION RATE 99 ML/MIN (>89); GLUCOSE,RANDOM 109 MG/DL (74-106); MAGNESIUM 2.1 MG/DL (1.5-2.5); SODIUM (NA) 135 MEQ/L (136-145)
[2017-08-21 07:06] LABS: ALKALINE PHOSPHATASE 92 U/L (45-117); PHOSPHORUS 2.3 MG/DL (2.5-4.9); TOTAL BILIRUBIN ADULT 0.2 MG/DL (0.2-1.0); TOTAL PROTEIN 6.8 GM/DL (6.4-8.2)
[2017-08-21 08:30] VITALS: BP 104/60; PULSE 67; RESP 16; TEMP 98.4; O2SAT 98
[2017-08-21] MEDS: oxyCODONE HCL 40 MG CONTROLLED RELEASE TAB PO SCH (09:38)
[2017-08-21] MEDS: DOCUSATE SODIUM 50 MG/SENNA 8.6 MG TAB PO SCH (09:38)
[2017-08-21] MEDS: SODIUM CHLORIDE 0.9% FLUSH 10 ML FLUSH IV FLUSH SCH (09:38)
--- NOTE | 2017-08-21 10:13 | PD.ONC.PN ---
Subjective Subjective Remarks Afebrile Anxious to go home Reports her headache is completely resolved Objective Data Date Time Temp Pulse Resp B/P (MAP) Pulse Ox O2 Delivery O2 Flow Rate FiO2 08/21/17 08:30 98.4 67 16 104/60 (75) 98 08/21/17 04:55 97.7 75 18 145/68 (93) 99 08/21/17 00:23 98.3 79 18 132/64 (86) 98 08/20/17 20:53 98.2 74 18 121/80 (94) 100 08/20/17 18:38 18 08/20/17 16:00 98.0 60 18 120/55 (76) 100 08/20/17 12:00 98.0 63 18 124/58 (80) 98 08/21/17 08/21/17 08/21/17 07:00 15:00 23:00 Intake Total 1300 ml Balance 1300 ml Result Diagram: 08/21/17 0603 08/21/17 0603 Laboratory Results Laboratory Tests Test 08/21/17 06:03 White Blood Count 3.0 TH/MM3 Red Blood Count 4.49 MIL/MM3 Hemoglobin 13.3 GM/DL Hematocrit 38.5 % Mean Corpuscular Volume 85.8 FL Mean Corpuscular Hemoglobin 29.6 PG Mean Corpuscular Hemoglobin Concent 34.5 % Red Cell Distribution Width 14.5 % Platelet Count 191 TH/MM3 Mean Platelet Volume 6.8 FL Neutrophils (%) (Auto) 53.8 % Lymphocytes (%) (Auto) 33.5 % Monocytes (%) (Auto) 9.5 % Eosinophils (%) (Auto) 2.3 % Basophils (%) (Auto) 0.9 % Neutrophils # (Auto) 1.6 TH/MM3 Lymphocytes # (Auto) 1.0 TH/MM3 Monocytes # (Auto) 0.3 TH/MM3 Eosinophils # (Auto) 0.1 TH/MM3 Basophils # (Auto) 0.0 TH/MM3 CBC Comment DIFF FINAL Differential Comment Blood Urea Nitrogen 6 MG/DL Creatinine 0.63 MG/DL Random Glucose 109 MG/DL Total Protein 6.8 GM/DL Albumin 3.8 GM/DL Calcium Level 8.8 MG/DL Phosphorus Level 2.3 MG/DL Magnesium Level 2.1 MG/DL Alkaline Phosphatase 92 U/L Aspartate Amino Transf (AST/SGOT) 15 U/L Alanine Aminotransferase (ALT/SGPT) 19 U/L Total Bilirubin 0.2 MG/DL Sodium Level 135 MEQ/L Potassium Level 3.9 MEQ/L Chloride Level 102 MEQ/L Carbon Dioxide Level 25.6 MEQ/L Anion Gap 7 MEQ/L Estimat Glomerular Filtration Rate 99 ML/MIN Administered Medications Medications (Trade) Dose Ordered Sig/Skyler Route PRN Reason Start Time Stop Time Status Last Admin Dose Admin Lorazepam (Ativan) 0.5 mg Q8H PRN PO ANXIETY 08/16/17 01:30 08/20/17 21:01 Oxycodone HCl (Roxicodone) 15 mg Q6HR PO 08/16/17 06:00 08/21/17 04:52 Oxycodone HCl (OxyCONTIN CR) 40 mg Q12HR PO 08/16/17 09:00 08/21/17 09:38 Sodium Chloride (NS Flush) 2 ml BID IV FLUSH 08/16/17 09:00 08/21/17 09:38 Enoxaparin Sodium (Lovenox Inj) 40 mg Q24H SQ 08/16/17 04:00 08/21/17 04:52 Senna/Docusate Sodium (Darlene-Colace) 1 tab BID PO 08/16/17 09:00 08/21/17 09:38 Prochlorperazine Edisylate (Compazine Inj) 5 mg Q6H PRN IV PUSH NAUSEA 08/16/17 10:00 08/18/17 10:24 Objective Remarks GENERAL: Older female sitting up in bed in no obvious distress SKIN: Warm and dry. HEAD: Normocephalic. EYES: . No injection or drainage. NECK: Supple, trachea midline CARDIOVASCULAR: Regular rate and rhythm without murmurs. RESPIRATORY: Breath sounds equal bilaterally. No accessory muscle use. GASTROINTESTINAL: Abdomen soft, non-tender, nondistended. EXTREMITIES: No cyanosis, or edema. MUSCULOSKELETAL: Adequate muscle tone. NEUROLOGICAL: No obvious focal deficit. Awake, alert, and oriented x3. Assessment/Plan Assessment 51y/o female with metastatic SCLC. Admitted with headache, nausea and vomiting. -- initially diagnosed in 01/2017. +extensive bony metastases --treated with palliative radiation to the pelvic bones --s/p 3 cycles of cisplatin and etoposide in [facility] --s/p cycle 1 carboplatin/ etoposide 07/2017 locally. Plan 1. Hyponatremia: Much improved on tolvaptan. 2. Patient clear for discharge from oncology standpoint 3. Follow-up in clinic with Dr. Kamara next week Attending Statement The exam, history, and the medical decision-making described in the above note were completed with the assistance of the mid-level provider. I reviewed and agree with the findings presented. I attest that I had a [id number] encounter with the patient on the same day, and personally performed and documented my assessment and findings in the medical record. Discussed general symptoms of hyponatremia. Advised her to call [facility] to arrange fu appt w/ DR. Kamara. OK for DC from heme/onc perspective w/ follow up. Katerine Brooke Aug 21, 2017 10:13 Radha Saucedo MD Aug 21, 2017 11:30
--- NOTE | 2017-08-21 10:56 | HHI.PR ---
Subjective Remarks in no acute distress. although with still some nausea but overall doing better. headache has almost resolved. no new complaints. 4-5 [address]ING [address]ACHE WILL GET CT OF HEAD [place] RN AND PATIENT AND CM DOES NOT LIKE SALT TABS TO GET SAMSCA TODAY 4-6 SODIUM TO 135 TODAY WILL FLUID RESTRICT AM LABS HOPEFULLY HOME TOMORROW DW RN AND PT WANTS TO GO OFF FLOOR 4-7 SODIUM IS 135 AGAIN DW RN AND PT AND CM DC TO HOME TODAY Objective Vitals Vital Signs Date Time Temp Pulse Resp B/P (MAP) Pulse Ox O2 Delivery O2 Flow Rate FiO2 08/21/17 08:30 98.4 67 16 104/60 (75) 98 08/21/17 04:55 97.7 75 18 145/68 (93) 99 08/21/17 00:23 98.3 79 18 132/64 (86) 98 08/20/17 20:53 98.2 74 18 121/80 (94) 100 08/20/17 18:38 18 08/20/17 16:00 98.0 60 18 120/55 (76) 100 08/20/17 12:00 98.0 63 18 124/58 (80) 98 I/O 08/20/17 08/20/17 08/20/17 08/21/17 08/21/17 08/21/17 07:00 15:00 23:00 07:00 15:00 23:00 Intake Total 720 ml 1440 ml 1300 ml Balance 720 ml 1440 ml 1300 ml Intake Oral 720 ml 1440 ml 1300 ml # Voids 3 4 4 # Bowel Movements 1 Result Diagram: 08/21/17 0603 08/21/17 0603 Other Results Laboratory Tests Test 08/19/17 05:55 08/20/17 05:47 08/21/17 06:03 White Blood Count 2.1 TH/MM3 2.8 TH/MM3 3.0 TH/MM3 Red Blood Count 4.00 MIL/MM3 4.41 MIL/MM3 4.49 MIL/MM3 Hemoglobin 11.9 GM/DL 13.1 GM/DL 13.3 GM/DL Hematocrit 33.6 % 37.7 % 38.5 % Mean Corpuscular Volume 84.1 FL 85.6 FL 85.8 FL Mean Corpuscular Hemoglobin 29.7 PG 29.7 PG 29.6 PG Mean Corpuscular Hemoglobin Concent 35.4 % 34.7 % 34.5 % Red Cell Distribution Width 14.1 % 14.5 % 14.5 % Platelet Count 160 TH/MM3 196 TH/MM3 191 TH/MM3 Mean Platelet Volume 6.9 FL 6.7 FL 6.8 FL Neutrophils (%) (Auto) 50.6 % 60.6 % 53.8 % Lymphocytes (%) (Auto) 36.5 % 29.4 % 33.5 % Monocytes (%) (Auto) 10.3 % 8.0 % 9.5 % Eosinophils (%) (Auto) 1.9 % 1.2 % 2.3 % Basophils (%) (Auto) 0.7 % 0.8 % 0.9 % Neutrophils # (Auto) 1.1 TH/MM3 1.7 TH/MM3 1.6 TH/MM3 Lymphocytes # (Auto) 0.8 TH/MM3 0.8 TH/MM3 1.0 TH/MM3 Monocytes # (Auto) 0.2 TH/MM3 0.2 TH/MM3 0.3 TH/MM3 Eosinophils # (Auto) 0.0 TH/MM3 0.0 TH/MM3 0.1 TH/MM3 Basophils # (Auto) 0.0 TH/MM3 0.0 TH/MM3 0.0 TH/MM3 CBC Comment DIFF FINAL DIFF FINAL DIFF FINAL Differential Comment Blood Urea Nitrogen 5 MG/DL 5 MG/DL 6 MG/DL Creatinine 0.40 MG/DL 0.57 MG/DL 0.63 MG/DL Random Glucose 100 MG/DL 110 MG/DL 109 MG/DL Calcium Level 7.7 MG/DL 8.6 MG/DL 8.8 MG/DL Sodium Level 120 MEQ/L 135 MEQ/L 135 MEQ/L Potassium Level 3.5 MEQ/L 4.2 MEQ/L 3.9 MEQ/L Chloride Level 88 MEQ/L 103 MEQ/L 102 MEQ/L Carbon Dioxide Level 22.4 MEQ/L 25.3 MEQ/L 25.6 MEQ/L Anion Gap 10 MEQ/L 7 MEQ/L 7 MEQ/L Estimat Glomerular Filtration Rate 167 ML/MIN 111 ML/MIN 99 ML/MIN Random Cortisol 4.5 MCG/DL Total Protein 6.6 GM/DL 6.8 GM/DL Albumin 3.7 GM/DL 3.8 GM/DL Phosphorus Level 1.3 MG/DL 2.3 MG/DL Magnesium Level 2.2 MG/DL 2.1 MG/DL Alkaline Phosphatase 90 U/L 92 U/L Aspartate Amino Transf (AST/SGOT) 16 U/L 15 U/L Alanine Aminotransferase (ALT/SGPT) 17 U/L 19 U/L Total Bilirubin 0.2 MG/DL 0.2 MG/DL Hemoglobin A1c 5.3 % Free Thyroxine 1.13 NG/DL Thyroid Stimulating Hormone 3rd Gen 1.220 uIU/ML Imaging Last Impressions Head CT 08/20/17 0000 Signed Impressions: Service Date/Time: Sunday, August 20, 2017 10:37 - CONCLUSION: 1. No acute findings in the brain. Davion Johnson MD Objective Remarks GENERAL: Awake alert and oriented 3 -states she has a dry mouth- talkative and cooperative SKIN: Warm and dry. HEAD: Atraumatic. Normocephalic. EYES: Pupils equal and round. No scleral icterus. No injection or drainage. Extraocular muscles intact ENT: No nasal bleeding or discharge. Mucous membranes pink and moist. NECK: Trachea midline. No JVD. CARDIOVASCULAR: Regular rate and rhythm. S1-S2 no S3 or S4 RESPIRATORY: No accessory muscle use. Clear to auscultation. Breath sounds equal bilaterally. GASTROINTESTINAL: Abdomen soft, non-tender, nondistended. Hepatic and splenic margins not palpable. MUSCULOSKELETAL: Extremities without clubbing, cyanosis, or edema. No obvious deformities. NEUROLOGICAL: Awake and alert. No obvious cranial nerve deficits. Motor grossly within normal limits. Five out of 5 muscle strength in the arms and legs. Normal speech. PSYCHIATRIC: Appropriate mood and affect; insight and judgment normal. Procedures NONE Medications and IVs Current Medications Sodium Chloride 1,000 ml @ 2,000 mls/hr Q30M ONCE IV Last administered on 22:43; Start 08/15/17 at 22:30; Stop 08/15/17 at 22:59; Status DC Hydromorphone HCl (Dilaudid Pf Inj) 1 mg ONCE ONCE IV PUSH Last administered on 08/15/17 22:42; Start 08/15/17 at 22:30; Stop 08/15/17 at 22:31; Status DC Prochlorperazine Edisylate (Compazine Inj) 10 mg ONCE ONCE IV PUSH Last administered on 08/15/17 22:43; Start 08/15/17 at 22:30; Stop 08/15/17 at 22:31; Status DC Oxycodone HCl (OxyCONTIN CR) 40 mg ONCE ONCE PO ; Start 08/15/17 at 23:15; Stop 08/15/17 at 23:16; Status Cancel Lorazepam (Ativan) 0.5 mg Q8H PRN PO ANXIETY Last administered on 08/20/17at 21: 01; Start 08/16/17 at 01:30 Prochlorperazine Maleate (Compazine) 5 mg Q6H PRN PO NAUSEA OR VOMITING; Start 08/16/17 at 01:30; Stop 08/16/17 at 09:26; Status DC Patient Own Medication PT OWN MED: Lubiprostone (Amiti... BID PO ; Start at 09:00; Status Future Hold Patient Own Medication PT OWN MED:Nabumetone 750 MG DOSE DAILY PO ; Start at 09:00; Status Future Hold Oxycodone HCl (Roxicodone) 15 mg Q6HR PO Last administered on 08/21/17at 04:52; Start 08/16/17 at 06:00 Oxycodone HCl (OxyCONTIN CR) 40 mg Q12HR PO Last administered on 08/21/17at 09:38 ; Start 08/16/17 at 09:00 Sodium Chloride 1,000 ml @ 100 mls/hr Q10H IV Last administered on 08/17/17at 05 :43; Start 08/16/17 at 01:30; Stop 08/17/17 at 08:36; Status DC Sodium Chloride (NS Flush) 2 ml UNSCH PRN IV FLUSH FLUSH AFTER USING IV ACCESS ; Start 08/16/17 at 01:30 Sodium Chloride (NS Flush) 2 ml BID IV FLUSH Last administered on 08/21/17at 09: 38; Start 08/16/17 at 09:00 Acetaminophen (Tylenol) 650 mg Q4H PRN PO TEMP > 100.4; Start 08/16/17 at 01:30 Ondansetron HCl (Zofran Inj) 4 mg Q6H PRN IVP NAUSEA OR VOMITING; Start at 01:30; Status UNV Enoxaparin Sodium (Lovenox Inj) 40 mg Q24H SQ Last administered on 08/21/17at 04: 52; Start 08/16/17 at 04:00 Naloxone HCl (Narcan Inj) 0.4 mg UNSCH PRN IV PUSH SEE LABEL COMMENTS; Start at 01:30 Senna/Docusate Sodium (Darlene-Colace) 1 tab BID PO Last administered on 08/21/17at 09:38; Start 08/16/17 at 09:00 Magnesium Hydroxide (Milk Of Magnesia Liq) 30 ml Q12H PRN PO Mild constipation ; Start 08/16/17 at 01:30 Sennosides (Senokot) 17.2 mg Q12H PRN PO Moderate constipation; Start 08/16/17 at 01:30 Bisacodyl (Dulcolax Supp) 10 mg DAILY PRN RECTAL SEVERE CONSITIPATION; Start at 01:30 Lactulose (Lactulose Liq) 30 ml DAILY PRN PO SEVERE CONSITIPATION; Start at 01:30 Oxycodone HCl (OxyCONTIN CR) 40 mg ONCE ONCE PO Last administered on 08/16/17at 02:23; Start 08/16/17 at 02:15; Stop 08/16/17 at 02:16; Status DC Prochlorperazine Edisylate (Compazine Inj) 5 mg Q6H PRN IV PUSH NAUSEA Last administered on 08/18/17at 10:24; Start 08/16/17 at 10:00 Sodium Chloride (Sodium Chloride) 1 gm DAILY PO Last administered on 08/18/17at 08:26; Start 08/17/17 at 09:00; Stop 08/18/17 at 11:53; Status DC Ondansetron HCl (Zofran Odt) 4 mg Q6H PO ; Start 08/17/17 at 08:45; Stop at 10:43; Status DC Butalbital/ Aspirin/Caffeine (Fiorinal 325-40-50) 1 cap ONCE ONCE PO Last administered on 08/17/17at 09:38; Start 08/17/17 at 10:00; Stop 08/17/17 at 10:01; Status DC Sodium Chloride (Sodium Chloride) 1 gm ONCE ONCE PO Last administered on at 21:56; Start 08/17/17 at 21:45; Stop 08/17/17 at 21:46; Status DC Prochlorperazine Edisylate (Compazine Inj) 5 mg ONCE ONCE IM Last administered on 08/18/17at 01:48; Start 08/18/17 at 01:45; Stop 08/18/17 at 01:46; Status DC Sodium Chloride (Sodium Chloride) 1 gm BID PO Last administered on 08/19/17at 00: 49; Start 08/18/17 at 21:00; Stop 08/19/17 at 08:56; Status DC Magnesium Citrate (Citroma Liq) 300 ml ONCE ONCE PO Last administered on at 13:55; Start 08/18/17 at 13:45; Stop 08/18/17 at 13:46; Status DC Acetaminophen/ Butalbital/ Caffeine (Fioricet 325-50-40) 1 tab ONCE ONCE PO ; Start 08/18/17 at 19:45; Stop 08/18/17 at 19:46; Status Cancel Acetaminophen/ Butalbital/ Caffeine (Fioricet 325-50-40) 1 tab ONCE ONCE PO Last administered on 08/18/17at 21:25; Start 08/18/17 at 21:15; Stop 08/18/17 at 21: 16; Status DC Butalbital/ Aspirin/Caffeine (Fiorinal 325-40-50) 1 cap ONCE ONCE PO Last administered on 08/19/17at 04:23; Start 08/19/17 at 03:30; Stop 08/19/17 at 03:31; Status DC Diphenhydramine HCl (Benadryl Inj) 25 mg ONCE ONCE IV PUSH Last administered on 08/19/17at 04:24; Start 08/19/17 at 03:30; Stop 08/19/17 at 03:31; Status DC Prochlorperazine Edisylate (Compazine Inj) 5 mg ONCE ONCE IV PUSH Last administered on 08/19/17at 04:24; Start 08/19/17 at 03:30; Stop 08/19/17 at 03:31; Status DC Tolvaptan (Samsca) 15 mg DAILY PO Last administered on 08/20/17at 08:26; Start at 09:00; Stop 08/20/17 at 13:41; Status DC A/P Problem List: (1) Lung cancer ICD Code: C34.90 - Malignant neoplasm of unspecified part of unspecified bronchus or lung Status: Acute (2) Hyponatremia ICD Code: E87.1 - Hypo-osmolality and hyponatremia (3) Headache ICD Code: R51 - Headache Status: Acute Assessment and Plan 1. Hyponatremia- likely due to persistent nausea/ vomiting/ and SIADH continue sodium tablet. monitor sodium level closely. nephrology consult appreciated; will consider Tolvaptan. continue fluid restriction. To get Samsca 4-5 Does not like salt tablet STABLE DC TO HOME TODAY 2. Weakness/fatigue May be secondary to hyponatremia Plan as above 3. Headache/vomiting- overall improved. Likely secondary to change in patient's pain medication regimen Holding fentanyl Restarted OxyContin oncology consulted. To get CAT scan of the head --not done yet--CT OF HEAD IS STABLE 4. Small cell lung cancer Follow up as an outpatient Dr. Kamara consulted, appreciate recommendations Seen by nephrology regarding the severe hyponatremia will start on Samsca ON 4- 5 AND STOPPED AM LABS DVt prophylaxis with subq Lovenox Discharge Planning DC TO HOME TODAY Daniele Muñoz DO Aug 21, 2017 10:56
[2017-08-21] MEDS ORDERED: PROC5TAB PO (11:02)
[2017-08-21] MEDS ORDERED: OXYC40TA20 PO (11:02)
[2017-08-21] MEDS ORDERED: FENT1DIS35 T-DERMAL (11:02)
[2017-08-21] MEDS ORDERED: LORA0.5T PO (11:02)
[2017-08-21] MEDS ORDERED: OXYC15TA PO (11:02)
[2017-08-21] MEDS ORDERED: SENN187 PO (11:02)
[2017-08-21] MEDS ORDERED: NABU1TAB33 PO (11:02)
--- NOTE | 2017-08-21 11:03 | HHI.DS ---
Discharge Summary Admission Date Aug 16, 2017 at 01:17 Discharge Date: Aug 21, 2017 Admitting Diagnosis Nausea vomiting, hyponatremia (1) Lung cancer ICD Code: C34.90 - Malignant neoplasm of unspecified part of unspecified bronchus or lung Diagnosis: Principal Status: Acute (2) Hyponatremia ICD Code: E87.1 - Hypo-osmolality and hyponatremia Diagnosis: Principal (3) Headache ICD Code: R51 - Headache Diagnosis: Principal Status: Acute Procedures NONE Brief History - From Admission 52-year-old female with past medical history significant for small cell lung cancer presents to the emergency department for evaluation of headache, vomiting and weakness. The patient reports that for the past 3 days she has had a headache with accompanying vomiting. She states she is unable to keep anything down including water. She also notes that she has had an increase in fatigue and weakness with shortness of breath. She states her symptoms are worsening. The patient states that 3 days ago her pain medication was changed from 40 mg of OxyContin twice a day to 37.5 g of fentanyl patch. She states she thinks her symptoms are related to her changing and pain medication. The patient denies any chest pain. No diarrhea. She denies cough. No abdominal pain. No lateralizing signs/symptoms. CBC/BMP: 08/21/17 0603 08/21/17 0603 Significant Findings Laboratory Tests Test 08/19/17 05:55 08/20/17 05:47 08/21/17 06:03 White Blood Count 2.1 TH/MM3 (4.0-11.0) 2.8 TH/MM3 (4.0-11.0) 3.0 TH/MM3 (4.0-11.0) Hematocrit 33.6 % (35.0-46.0) Mean Platelet Volume 6.9 FL (7.0-11.0) 6.7 FL (7.0-11.0) 6.8 FL (7.0-11.0) Monocytes (%) (Auto) 10.3 % (0.0-8.0) 9.5 % (0.0-8.0) Neutrophils # (Auto) 1.1 TH/MM3 (1.8-7.7) 1.7 TH/MM3 (1.8-7.7) 1.6 TH/MM3 (1.8-7.7) Lymphocytes # (Auto) 0.8 TH/MM3 (1.0-4.8) 0.8 TH/MM3 (1.0-4.8) Blood Urea Nitrogen 5 MG/DL (7-18) 5 MG/DL (7-18) 6 MG/DL (7-18) Creatinine 0.40 MG/DL (0.50-1.00) Calcium Level 7.7 MG/DL (8.5-10.1) Sodium Level 120 MEQ/L (136-145) 135 MEQ/L (136-145) 135 MEQ/L (136-145) Chloride Level 88 MEQ/L (98-107) Random Glucose 110 MG/DL (74-106) 109 MG/DL (74-106) Phosphorus Level 1.3 MG/DL (2.5-4.9) 2.3 MG/DL (2.5-4.9) Imaging Last Impressions Head CT 08/20/17 0000 Signed Impressions: Service Date/Time: Sunday, August 20, 2017 10:37 - CONCLUSION: 1. No acute findings in the brain. Davion Johnson MD PE at Discharge GENERAL: Awake alert and oriented 3 -states she has a dry mouth- talkative and cooperative SKIN: Warm and dry. HEAD: Atraumatic. Normocephalic. EYES: Pupils equal and round. No scleral icterus. No injection or drainage. Extraocular muscles intact ENT: No nasal bleeding or discharge. Mucous membranes pink and moist. NECK: Trachea midline. No JVD. CARDIOVASCULAR: Regular rate and rhythm. S1-S2 no S3 or S4 RESPIRATORY: No accessory muscle use. Clear to auscultation. Breath sounds equal bilaterally. GASTROINTESTINAL: Abdomen soft, non-tender, nondistended. Hepatic and splenic margins not palpable. MUSCULOSKELETAL: Extremities without clubbing, cyanosis, or edema. No obvious deformities. NEUROLOGICAL: Awake and alert. No obvious cranial nerve deficits. Motor grossly within normal limits. Five out of 5 muscle strength in the arms and legs. Normal speech. PSYCHIATRIC: Appropriate mood and affect; insight and judgment normal. Hospital Course in no acute distress. although with still some nausea but overall doing better. headache has almost resolved. no new complaints. 4-5 HAVING HEADACHE WILL GET CT OF HEAD DW RN AND PATIENT AND CM DOES NOT LIKE SALT TABS TO GET SAMSCA TODAY 4-6 SODIUM TO 135 TODAY WILL FLUID RESTRICT AM LABS HOPEFULLY HOME TOMORROW DW RN AND PT WANTS TO GO OFF FLOOR 4-7 SODIUM IS 135 AGAIN DW RN AND PT AND CM DC TO HOME TODAY Pt Condition on Discharge: Good Discharge Disposition: Discharge Home Discharge Time: > 30 minutes Discharge Instructions DIET: Follow Instructions for: Heart Healthy Diet Speech Therapy-Diet Recommends: Regular Fluid Restrictions: 1500 ML Activities you can perform: Regular-No Restrictions Follow up Referrals: Nephrology - 2 Weeks with Daryn Guzman MD Oncology/Hematology - 3-5 Days with Tayo Kamara MD PCP Follow-up - 10 Days with Shelli Leonard MD New Medications: Oxycodone HCl (Oxycontin) 40 Mg Tab.er.12h 40 MG PO Q12HR for Pain Management, #60 TAB Sennosides (Senna-Lax) 8.6 Mg Tab 17.2 MG PO Q12H PRN for Moderate constipation, #120 TAB Continued Medications: Fentanyl Patch 72 HR (Fentanyl Patch 72 HR) 37.5 Mcg/Hr Patch 37.5 MCG T-DERMAL Q72H for Pain Management, #10 PATCH 0 Refills (This prescription has been renewed) Remove old patch when new one placed. Lorazepam (Lorazepam) 0.5 Mg Tab 0.5 MG PO Q8H PRN for ANXIETY, #90 TAB 0 Refills (This prescription has been renewed) Lubiprostone (Amitiza) 24 Mcg Cap 24 MG PO BID for Constipation, CAP 0 Refills Nabumetone (Nabumetone) 750 Mg Tab 750 MG PO DAILY for Pain-Inflammation, #60 TAB 0 Refills (This prescription has been renewed) Oxycodone (Oxycodone) 15 Mg Tab 15 MG PO Q6HR for Pain Management, #120 TAB 0 Refills (This prescription has been renewed) Prochlorperazine Maleate (Prochlorperazine Maleate) 5 Mg Tab 5 MG PO Q6H PRN for NAUSEA OR VOMITING, #60 TAB 0 Refills (This prescription has been renewed) Daniele Muñoz DO Aug 21, 2017 11:03
== END 2017-08-21 12:40 | disposition home or self-care (01) | DRG 644 ==
LOC: NEPC 21:03 → NEDA 08-16 01:17 → N07B 08-16 02:46 → HCIN 08-18 10:15
PROVIDERS: ADMIT Hospitalist; ATTEND Hospitalist
DX: E22.2 Syndrome of inappropriate secretion of antidiuretic hormone (principal); C79.51 Secondary malignant neoplasm of bone; C34.11 Malignant neoplasm of upper lobe, right bronchus or lung; E87.8 Other disorders of electrolyte and fluid balance, not elsewhere classified; K76.0 Fatty (change of) liver, not elsewhere classified; E27.40 Unspecified adrenocortical insufficiency; E86.0 Dehydration; G47.33 Obstructive sleep apnea (adult) (pediatric); M79.7 Fibromyalgia; R11.2 Nausea with vomiting, unspecified; G89.3 Neoplasm related pain (acute) (chronic); K59.00 Constipation, unspecified; F17.200 Nicotine dependence, unspecified, uncomplicated; Z88.1 Allergy status to other antibiotic agents; Z88.5 Allergy status to narcotic agent; Z91.041 Radiographic dye allergy status; Z92.21 Personal history of antineoplastic chemotherapy; Z92.3 Personal history of irradiation
CPT/HCPCS: 70450; 76937; 80048; 80053; 82024; 82533; 83036; 83735; 83930; 83935; 84100; 84155; 84295; 84300; 84439; 84443; 84550; 85025; 96374; 96375; J0780; J1170; J1200; J1650; J7030

== ENCOUNTER 2017-08-24 09:59 | Emergency (ER) | payer MEDICAID ==
[~2017-08-24 09:59] MED LIST changes: -CALCTAB19 PO; +FENT1DIS35 T-DERMAL; -HYDR-755 PO; -OXYC30TA62 PO; +OXYC40TA20 PO; +SENN187 PO; -SODI1TAB PO; -VANC1CAP6 PO
[2017-08-24 10:00] VITALS: BP 162/74; PULSE 72; RESP 16; TEMP 98.1; O2SAT 100
[2017-08-24 10:19] VITALS: BP 160/79; PULSE 72; RESP 20; O2SAT 100
[2017-08-24] MEDS ORDERED: SODIUM CHLOR 0.9% 1000 ML INJ 1,000 ML IV ONE (10:22)
--- NOTE | 2017-08-24 10:29 | PD ---
HPI Chief Complaint: Cardiac Complaint Time Seen by Provider: 10:02 Travel History International Travel<30 days: No Contact w/Intl Traveler<30days: No Traveled to known affect area: No History of Present Illness HPI The patient is a 52-year-old female who presents to emergency department for multiple complaints. The patient states she has a two-week history of headache, was recently hospitalized for hyponatremia and underwent evaluation for her headache with CT the brain and MRI. The patient states they were providing Fioricet for her headaches with no relief of her symptoms. The headache is located on the right side, constant, nonradiating, and severe. She also complains of new right-sided pleuritic chest pain. The pain is sharp, lasts several minutes, intermittent, and there are no alleviating or exacerbating factors. She does complain of shortness of breath which is chronic. 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 The patient is followed by Dr. Kamara, her oncologist, but is not currently on chemotherapy. The patient denies any history of pulmonary embolism or DVT, but was recently hospitalized for 1 week for hyponatremia. She denies any significant edema to lower extremities. She denies any fever, chills, or sweats. Symptoms are moderate to severe. 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) Cardiovascular Problems: Yes High Cholesterol: Yes Chemotherapy: No Diminished Hearing: No Diverticulitis: Yes Endocrine: No Gastrointestinal Disorders: Yes (GERD, DIVERTICULITIS, CHRONIC DIARRHEA) GERD: Yes Genitourinary: Yes Hepatitis: No Hiatal Hernia: No Immune Disorder: No Implanted Vascular Access Dvce: Yes Kidney Stones: Yes ("SLUDGE IN KIDNEYS") Musculoskeletal: No Neurologic: No Respiratory: Yes Radiation Therapy: No Sleep Apnea: Yes Ulcer: No ?: Not : 5 Para: 2 Miscarriage: 0 : 3 Ovarian Cysts: Yes (3 REMOVED FROM RIGHT OVARY) Tubal Ligation: Yes Past Surgical History Abdominal Surgery: Yes (PARTIAL COLECTOMY DUE TO DIVERTICULITIS AND HERNIA REPAIR WITH GB REMOVAL.) AICD: No Appendectomy: No Arteriovenous Shunt: No Body Medical Devices: LEFT CHEST PORT FOR CHEMO Cardiac Surgery: No Section: Yes Cholecystectomy: Yes Ear Surgery: No Endocrine Surgery: No Eye Surgery: No Genitourinary Surgery: No Gynecologic Surgery: Yes (LASER LAP - ENDOMETRIOSIS, 3 OVARIAN CYSTS REMOVED) Insulin Pump: No Joint Replacement: No Neurologic Surgery: No Oral Surgery: No Pacemaker: No Thoracic Surgery: No Social History Alcohol Use: Yes Tobacco Use: Yes Substance Use: No Allergies-Medications (Allergen,Severity, Reaction): Coded Allergies: codeine (Verified Allergy, Severe, Hives, SOB, 08/24/17) diatrizoate meglumine (Unverified Allergy, Severe, HIVES, 08/24/17) REACTION TO IV DYE ONLY (PO CAN TOLERATE) gadobenic acid (Unverified Allergy, Severe, HIVES, 08/24/17) REACTION TO IV DYE ONLY (PO CAN TOLERATE) gadodiamide (Unverified Allergy, Severe, HIVES, 08/24/17) REACTION TO IV DYE ONLY (PO CAN TOLERATE) gadoteridol (Unverified Allergy, Severe, HIVES, 08/24/17) REACTION TO IV DYE ONLY (PO CAN TOLERATE) iodixanol (Unverified Allergy, Severe, HIVES, 08/24/17) REACTION TO IV DYE ONLY (PO CAN TOLERATE) iohexol (Unverified Allergy, Severe, HIVES, 08/24/17) REACTION TO IV DYE ONLY (PO CAN TOLERATE) morphine (Verified Allergy, Severe, Hives, SHORTNESS OF BREATH , 08/24/17) ondansetron (Verified Allergy, Severe, Hives, 08/24/17) Iodinated Contrast- Oral and IV Dye (Verified Allergy, Intermediate, Hives , 08/24/17) azithromycin (Unverified Allergy, Mild, HIVES, 08/24/17) Reported Meds & Prescriptions Reported Meds & Active Scripts Active Senna-Lax (Sennosides) 8.6 Mg Tab 17.2 Mg PO Q12H PRN Oxycontin (Oxycodone HCl) 40 Mg Tab.er.12h 40 Mg PO Q12HR Fentanyl Patch 72 HR (Fentanyl) 37.5 Mcg/Hr Patch 37.5 Mcg T-DERMAL Q72H Remove old patch when new one placed. Prochlorperazine Maleate 5 Mg Tab 5 Mg PO Q6H PRN Oxycodone (Oxycodone HCl) 15 Mg Tab 15 Mg PO Q6HR Lorazepam 0.5 Mg Tab 0.5 Mg PO Q8H PRN Nabumetone 750 Mg Tab 750 Mg PO DAILY Reported Amitiza (Lubiprostone) 24 Mcg Cap 24 Mg PO BID Review of Systems Except as stated in HPI: all other systems reviewed are Neg General / Constitutional: No: Fever HENT: Positive: Headaches, No: Lightheadedness, Neck Pain Cardiovascular: Positive: Chest Pain or Discomfort Respiratory: Positive: Cough, Shortness of Breath Gastrointestinal: No: Nausea, Vomiting, Abdominal Pain Musculoskeletal: No: Edema Neurologic: No: Dizziness Physical Exam Narrative GENERAL: Awake, alert, pleasant 52-year-old female who appears her stated age and is in no acute respiratory distress SKIN: Focused skin assessment warm/dry. HEAD: Atraumatic. Normocephalic. Hair is thin on top. EYES: Pupils equal and round. No scleral icterus. No injection or drainage. ENT: No nasal bleeding or discharge. Mucous membranes pink and moist. NECK: Trachea midline. No JVD. CARDIOVASCULAR: Regular rate and rhythm. No murmur appreciated. Port in place left chest wall. RESPIRATORY: No accessory muscle use. Clear to auscultation. Breath sounds equal bilaterally. GASTROINTESTINAL: Abdomen soft, non-tender, nondistended. No rebound tenderness. MUSCULOSKELETAL: No obvious deformities. No clubbing. No cyanosis. No edema. NEUROLOGICAL: Awake and alert. No obvious cranial nerve deficits. Motor grossly within normal limits. Normal speech. PSYCHIATRIC: Appropriate mood and affect; insight and judgment normal. Tearful. Data Data Last Documented VS Vital Signs Date Time Temp Pulse Resp B/P (MAP) Pulse Ox O2 Delivery O2 Flow Rate FiO2 08/24/17 12:44 76 16 121/66 (84) 99 Room Air 08/24/17 10:00 98.1 Orders Orders Complete Blood Count With Diff (08/24/17 10:22) Comprehensive Metabolic Panel (08/24/17 10:22) B-Type Natriuretic Peptide (08/24/17 10:22) Act Partial Throm Time (Ptt) (08/24/17 10:22) Prothrombin Time / Inr (Pt) (08/24/17 10:22) Magnesium (Mg) (08/24/17 10:22) Ckmb (Isoenzyme) Profile (08/24/17 10:22) Troponin I (08/24/17 10:22) Iv Access Insert/Monitor (08/24/17 10:22) Electrocardiogram (08/24/17 10:22) Ecg Monitoring (08/24/17 10:22) Oximetry (08/24/17 10:22) Oxygen Administration (08/24/17 10:22) Chest, Single Ap (08/24/17 10:22) Ventilation & Perfusion Scan (08/24/17 10:22) Sodium Chloride 0.9% Flush (Ns Flush) (08/24/17 10:30) Albuterol-Ipratropium Neb (Duoneb Neb) (08/24/17 10:30) Sodium Chloride 0.9% Flush (Ns Flush) (08/24/17 10:30) Ketorolac Inj (Toradol Inj) (08/24/17 10:30) Prochlorperazine Inj (Compazine Inj) (08/24/17 10:30) Diphenhydramine Inj (Benadryl Inj) (08/24/17 10:30) Hydromorphone Pf Inj (Dilaudid Pf Inj) (08/24/17 10:30) Sodium Chlor 0.9% 1000 Ml Inj (Ns 1000 M (08/24/17 10:22) Hydromorphone Pf Inj (Dilaudid Pf Inj) (08/24/17 10:45) Troponin I (08/24/17 13:20) Hydromorphone Pf Inj (Dilaudid Pf Inj) (08/24/17 16:45) Ezpy-Chjdc-Zzcp 325-50-40 Mg (Fioricet 3 (08/24/17 16:45) Ed Discharge Order (08/24/17 16:37) Labs Laboratory Tests Test 08/24/17 10:20 08/24/17 15:40 White Blood Count 5.8 TH/MM3 Red Blood Count 4.28 MIL/MM3 Hemoglobin 12.5 GM/DL Hematocrit 36.5 % Mean Corpuscular Volume 85.2 FL Mean Corpuscular Hemoglobin 29.1 PG Mean Corpuscular Hemoglobin Concent 34.2 % Red Cell Distribution Width 14.6 % Platelet Count 198 TH/MM3 Mean Platelet Volume 6.7 FL Neutrophils (%) (Auto) 62.8 % Lymphocytes (%) (Auto) 26.7 % Monocytes (%) (Auto) 8.5 % Eosinophils (%) (Auto) 1.4 % Basophils (%) (Auto) 0.6 % Neutrophils # (Auto) 3.6 TH/MM3 Lymphocytes # (Auto) 1.6 TH/MM3 Monocytes # (Auto) 0.5 TH/MM3 Eosinophils # (Auto) 0.1 TH/MM3 Basophils # (Auto) 0.0 TH/MM3 CBC Comment DIFF FINAL Differential Comment Prothrombin Time 10.7 SEC Prothromb Time International Ratio 1.1 RATIO Activated Partial Thromboplast Time 32.0 SEC Blood Urea Nitrogen 12 MG/DL Creatinine 0.53 MG/DL Random Glucose 102 MG/DL Total Protein 6.6 GM/DL Albumin 3.8 GM/DL Calcium Level 8.3 MG/DL Magnesium Level 1.7 MG/DL Alkaline Phosphatase 84 U/L Aspartate Amino Transf (AST/SGOT) 12 U/L Alanine Aminotransferase (ALT/SGPT) 13 U/L Total Bilirubin 0.3 MG/DL Sodium Level 129 MEQ/L Potassium Level 4.2 MEQ/L Chloride Level 97 MEQ/L Carbon Dioxide Level 21.7 MEQ/L Anion Gap 10 MEQ/L Estimat Glomerular Filtration Rate 121 ML/MIN Total Creatine Kinase 30 U/L Troponin I 0.02 NG/ML LESS THAN 0.02 NG/ML B-Type Natriuretic Peptide 26 PG/ML MDM Medical Decision Making Medical Screen Exam Complete: Yes Emergency Medical Condition: Yes Medical Record Reviewed: Yes Interpretation(s) EKG reveals normal sinus rhythm with a rate of 70. Inverted T-wave in lead III. Last Impressions Lung Scan-V Nuclear Medicine 08/24/17 1022 Signed Impressions: Service Date/Time: Thursday, August 24, 2017 14:00 - CONCLUSION: Low probability of pulmonary embolism. Manpreet Loera MD Chest X-Ray 08/24/17 1022 Signed Impressions: Service Date/Time: Thursday, August 24, 2017 10:35 - CONCLUSION: No acute cardiopulmonary abnormality is identified. Elder Madrid MD Laboratory Tests Test 08/24/17 10:20 08/24/17 15:40 White Blood Count 5.8 TH/MM3 Red Blood Count 4.28 MIL/MM3 Hemoglobin 12.5 GM/DL Hematocrit 36.5 % Mean Corpuscular Volume 85.2 FL Mean Corpuscular Hemoglobin 29.1 PG Mean Corpuscular Hemoglobin Concent 34.2 % Red Cell Distribution Width 14.6 % Platelet Count 198 TH/MM3 Mean Platelet Volume 6.7 FL Neutrophils (%) (Auto) 62.8 % Lymphocytes (%) (Auto) 26.7 % Monocytes (%) (Auto) 8.5 % Eosinophils (%) (Auto) 1.4 % Basophils (%) (Auto) 0.6 % Neutrophils # (Auto) 3.6 TH/MM3 Lymphocytes # (Auto) 1.6 TH/MM3 Monocytes # (Auto) 0.5 TH/MM3 Eosinophils # (Auto) 0.1 TH/MM3 Basophils # (Auto) 0.0 TH/MM3 CBC Comment DIFF FINAL Differential Comment Prothrombin Time 10.7 SEC Prothromb Time International Ratio 1.1 RATIO Activated Partial Thromboplast Time 32.0 SEC Blood Urea Nitrogen 12 MG/DL Creatinine 0.53 MG/DL Random Glucose 102 MG/DL Total Protein 6.6 GM/DL Albumin 3.8 GM/DL Calcium Level 8.3 MG/DL Magnesium Level 1.7 MG/DL Alkaline Phosphatase 84 U/L Aspartate Amino Transf (AST/SGOT) 12 U/L Alanine Aminotransferase (ALT/SGPT) 13 U/L Total Bilirubin 0.3 MG/DL Sodium Level 129 MEQ/L Potassium Level 4.2 MEQ/L Chloride Level 97 MEQ/L Carbon Dioxide Level 21.7 MEQ/L Anion Gap 10 MEQ/L Estimat Glomerular Filtration Rate 121 ML/MIN Total Creatine Kinase 30 U/L Troponin I 0.02 NG/ML LESS THAN 0.02 NG/ML B-Type Natriuretic Peptide 26 PG/ML Differential Diagnosis Differential diagnosis includes pulmonary embolism, pneumothorax, hemothorax, pleurisy, lung carcinoma, intracranial tumor, subarachnoid hemorrhage, tension headache, depressive disorder, hyponatremia, tobacco dependence. Narrative Course The patient's port was accessed, labs are drawn and sent, and the patient was placed on cardiac telemetry monitoring and continuous pulse oximetry monitoring. EKG was ordered and interpreted. Chest x-ray was obtained. Patient complains of right-sided pleuritic chest pain, was recently hospitalized , therefore, patient will undergo VQ scan as d-dimer most likely will be elevated with history of carcinoma. The patient states she has a history today with IV contrast with hives. Patient was administered migraine cocktail with Benadryl, Toradol, Compazine, Dilaudid, and IV fluids. I reviewed the patient' s EMR, she had a CT of the brain on her previous hospitalization that was negative and an MRI in July 13 that was negative for acute infarction or mass. The patient's initial troponin and 3 hour troponin were both negative, second troponin was less than 0.02. VQ scan is negative for pulmonary embolism. No obvious source of the patient's right-sided pleuritic chest pain. The patient's headache did improve somewhat, however, she still had a mild headache. Therefore, the patient was administered Dilaudid and Fioricet. The patient be discharged home on Fioricet is advised to follow-up with a primary physician and/or neurology for headache continues. It has been present for over 2 weeks, is right-sided, she is Jarrett had a negative CT within the last 2 weeks and had a negative MRI within the last 2 months. Diagnosis Primary Impression: Pleuritic chest pain Additional Impression: Cephalgia Qualified Codes: R51 - Headache Patient Instructions: General Instructions Additional Instructions: Please provide the patient a copy of her lab results and VQ scan results at discharge. Follow-up with your primary physician. Return if symptoms worsen or progress. Fioricet as needed. No driving or drinking alcohol on Fioricet. Med/Other Pt SpecificInfo: Prescription(s) given Scripts Vqptxvshlj-Mhvfbhfvxvlue-Hbszwqtn (Fioricet) 50-300-40 Mg Cap 1 CAP PO Q4H Y for HEADACHE, #12 CAP 0 Refills Prov: Mikal Womack MD 08/24/17 Disposition: 01 DISCHARGE HOME Condition: Stable Mikal Womack MD Aug 24, 2017 10:29
[2017-08-24] MEDS ORDERED: diphenhydrAMINE HCL 50 MG/ML VIAL IVP ONE (10:30)
[2017-08-24] MEDS ORDERED: SODIUM CHLORIDE 0.9% FLUSH 10 ML FLUSH IVF PRN ×2 (10:30)
[2017-08-24] MEDS ORDERED: HYDROmorphone HCL PF 1 MG/ML VIAL IVS ONE (10:30)
[2017-08-24] MEDS ORDERED: RESP: ALBUTEROL 2.5 MG/IPRATROPIUM 0.5 MG NEB (SCH) INH ONE (10:30)
[2017-08-24] MEDS ORDERED: PROCHLORPERAZINE INJ 10 MG/2 ML VIAL IVP ONE (10:30)
[2017-08-24] MEDS ORDERED: KETOROLAC TROMETHAMINE 30 MG/ML (IVP) VIAL IVP ONE (10:30)
[2017-08-24 10:45] VITALS: O2SAT 100
[2017-08-24] MEDS ORDERED: HYDROmorphone HCL PF 2 MG/ML VIAL IV PUSH ONE ×2 (10:45→16:45)
[2017-08-24 10:50] LABS: AUTOMATED NEUTROPHIL # 3.6 TH/MM3 (1.8-7.7); BASOPHIL % 0.6 % (0.0-2.0); EOSINOPHIL # 0.1 TH/MM3 (0-0.4); EOSINOPHIL % 1.4 % (0.0-4.0); HEMATOCRIT 36.5 % (35.0-46.0); HEMOGLOBIN 12.5 GM/DL (11.6-15.3); LYMPH % 26.7 % (9.0-44.0); LYMPHOCYTE # 1.6 TH/MM3 (1.0-4.8); MEAN CELL VOLUME 85.2 FL (80.0-100.0); MEAN CORPUSCULAR HEMOGLOBIN 29.1 PG (27.0-34.0); MEAN CORPUSCULAR HGB CONC 34.2 % (32.0-36.0); MEAN PLATELET VOLUME 6.7 FL (7.0-11.0); MONO % 8.5 % (0.0-8.0); MONOCYTE # 0.5 TH/MM3 (0-0.9); NEUT % 62.8 % (16.0-70.0); PLATELET COUNT 198 TH/MM3 (150-450); RED BLOOD COUNT 4.28 MIL/MM3 (4.00-5.30); RED CELL DISTRIBUTION WIDTH 14.6 % (11.6-17.2); WHITE BLOOD COUNT 5.8 TH/MM3 (4.0-11.0)
[2017-08-24 11:04] LABS: ALBUMIN 3.8 GM/DL (3.4-5.0); ALT (GPT) 13 U/L (10-53); AST (GOT) 12 U/L (15-37); BICARBONATE 21.7 MEQ/L (21.0-32.0); BLOOD UREA NITROGEN 12 MG/DL (7-18); CALCIUM 8.3 MG/DL (8.5-10.1); CHLORIDE 97 MEQ/L (98-107); CREATININE 0.53 MG/DL (0.50-1.00); GLOMERULAR FILTRATION RATE 121 ML/MIN (>89); GLUCOSE,RANDOM 102 MG/DL (74-106); MAGNESIUM 1.7 MG/DL (1.5-2.5); SODIUM (NA) 129 MEQ/L (136-145)
[2017-08-24 11:07] LABS: ALKALINE PHOSPHATASE 84 U/L (45-117); TOTAL BILIRUBIN ADULT 0.3 MG/DL (0.2-1.0); TOTAL PROTEIN 6.6 GM/DL (6.4-8.2); TROPONIN I 0.02 NG/ML (0.02-0.05)
[2017-08-24 11:11] LABS: INTERNATIONAL NORMALIZED RATIO 1.1 RATIO; PROTHROMBIN TIME - PATIENT 10.7 SEC (9.8-11.6)
--- NOTE | 2017-08-24 11:47 | RADRPT ---
EXAM DATE/TIME: 08/24/2017 10:35 [facility] COMPARISON: No previous studies available for comparison. INDICATIONS : Short of breath, headaches MEDICAL HISTORY : Cardiovascular disease. Gastroesophageal reflux disease. metastatic bone cancer, small cell canc er SURGICAL HISTORY : colon resection ENCOUNTER: Initial ACUITY: 1 day PAIN SCORE: Non-responsive. LOCATION: Bilateral chest FINDINGS: Portable AP view of the chest demonstrates a normal-sized cardiac silhouette. A left chest wall Infus e-a-Port is present with distal tip in the superior vena cava. EKG lines overlie the patient. No effu raimundo, consolidation, or pneumothorax is identified. The bones and soft tissues demonstrate no acute f inding. CONCLUSION: No acute cardiopulmonary abnormality is identified. Elder Madrid MD on August 24, 2017 at 11:44 Board Certified Radiologist. This report was verified electronically.
[2017-08-24 12:44] VITALS: BP 121/66; PULSE 76; RESP 16; O2SAT 99
--- NOTE | 2017-08-24 15:28 | RADRPT ---
EXAM DATE/TIME: 08/24/2017 14:00 [facility] COMPARISON: CHEST SINGLE AP, August 24, 2017, 10:35. INDICATIONS : Short of breath. DOSE: 8.1 mCi Tc99m MAA IV 1.1 mCi Tc99m DTPA aerosol MEDICAL HISTORY : Hypertension. Carcinoma, lung. SURGICAL HISTORY : Colectomy and right ovary removed. ENCOUNTER: Initial ACUITY: 3 days PAIN SCALE: 1/10 LOCATION: chest TECHNIQUE: Following five minutes of tidal breathing of DTPA aerosol, planar images of the lungs were performed in eight projections. The patient was then injected with MAA, and eight-view perfusio n scan was performed. FINDINGS: There is a homogeneous pattern of aerosol delivery to the periphery of both lungs. No focal ventilat ory defects are seen. There is a single small subsegmental defect in the left upper lobe. CONCLUSION: Low probability of pulmonary embolism. Manpreet Loera MD on August 24, 2017 at 15:20 Board Certified Radiologist. This report was verified electronically.
[2017-08-24] MEDS ORDERED: BUTA1CAP PO (16:42)
[2017-08-24] MEDS ORDERED: ACETAMIN 325 MG/BUTALBITAL 50 MG/CAFFEINE 40 MG TAB PO ONE (16:45)
[2017-08-24 17:47] VITALS: BP 116/72
--- NOTE | 2017-08-25 21:43 | EKG ---
Date Performed: 08/24/2017 Time Performed: 10:21:04 PTAGE: 52 years EKG: Sinus rhythm NORMAL ECG NO PREVIOUS TRACING DOCTOR: Dieter Alonzo Interpretating Date/Time 08/25/2017 21:40:19
== END 2017-08-24 17:30 | disposition home or self-care (01) ==
LOC: NEPC 09:59
DX: R07.89 Other chest pain (principal); R51 Headache; R05 Cough; R06.02 Shortness of breath; F41.9 Anxiety disorder, unspecified; E78.00 Pure hypercholesterolemia, unspecified; K21.9 Gastro-esophageal reflux disease without esophagitis; Z85.830 Personal history of malignant neoplasm of bone; Z87.19 Personal history of other diseases of the digestive system
CPT/HCPCS: 71045; 78582; 80053; 82550; 83735; 83880; 84484; 85025; 85610; 85730; 93005; 94664; 96361; 96374; 96375; 96376; 99285; A9540; A9567; J0780; J1170; J1200; J1885; J7030

== ENCOUNTER 2017-08-28 14:48 | Inpatient (IN) | payer MEDICAID ==
[~2017-08-28] VITALS: Ht 165.1 cm; Wt 77.4 kg
[~2017-08-28 14:48] MED LIST changes: +BUTA1CAP PO
[2017-08-28 14:50] VITALS: BP 141/69; PULSE 72; RESP 18; TEMP 97.6; O2SAT 100
[2017-08-28] MEDS ORDERED: HYDROmorphone HCL PF 2 MG/ML VIAL IV PUSH ONE ×2 (15:30→19:15)
[2017-08-28] MEDS ORDERED: SODIUM CHLOR 0.9% 1000 ML INJ 1,000 ML IV ONE (15:30)
[2017-08-28] MEDS ORDERED: diphenhydrAMINE HCL 50 MG/ML VIAL IV PUSH ONE (15:30)
[2017-08-28] MEDS ORDERED: PROCHLORPERAZINE INJ 10 MG/2 ML VIAL IV PUSH ONE (15:30)
--- NOTE | 2017-08-28 15:51 | RADRPT ---
EXAM DATE/TIME: 08/28/2017 15:36 [facility] COMPARISON: CHEST SINGLE AP, August 24, 2017, 10:35. INDICATIONS : Patient complains of chest pain, cough, and shortness of breath. MEDICAL HISTORY : Carcinoma, lung. Carcinoma, bone. SURGICAL HISTORY : Infusaport. ENCOUNTER: Initial ACUITY: 2 days PAIN SCORE: 5/10 LOCATION: chest FINDINGS: Left chest port is stable in position. Lungs are stable and grossly clear. No effusion present. Cardi ac contours are stable and satisfactory. CONCLUSION: No acute disease Elder Arndt MD on August 28, 2017 at 15:49 Board Certified Radiologist. This report was verified electronically.
[2017-08-28 16:34] LABS: INTERNATIONAL NORMALIZED RATIO 1.1 RATIO; PROTHROMBIN TIME - PATIENT 11.1 SEC (9.8-11.6)
--- NOTE | 2017-08-28 17:02 | RADRPT ---
EXAM DATE/TIME: 08/28/2017 16:33 [facility] COMPARISON: CT BRAIN W/O CONTRAST, August 20, 2017, 10:37. INDICATIONS : Patient complains of weakness and vomiting. RADIATION DOSE: 56.35 CTDIvol (mGy) MEDICAL HISTORY : Cardiovascular disease. Renal calculi. small cell cancer, bone mets SURGICAL HISTORY : Tubal ligation. Cholecystectomy.colon resection ENCOUNTER: Initial ACUITY: 1 day PAIN SCALE: 0/10 LOCATION: cranial TECHNIQUE: Multiple contiguous axial images were obtained of the head. Using automated exposure control and adj ustment of the mA and/or kV according to patient size, radiation dose was kept as low as reasonably a chievable to obtain optimal diagnostic quality images. DICOM format image data is available electro nically for review and comparison. FINDINGS: Stable old lacunar infarct in the left basal ganglia. No evidence of intracranial mass or hemorrhage. Nothing to suggest acute infarction. The extracranial structures are benign and intact. CONCLUSION: Stable brain with no acute findings Elder Arndt MD on August 28, 2017 at 16:59 Board Certified Radiologist. This report was verified electronically.
[2017-08-28 17:04] LABS: ALBUMIN 3.7 GM/DL (3.4-5.0); ALKALINE PHOSPHATASE 90 U/L (45-117); ALT (GPT) 15 U/L (10-53); AST (GOT) 17 U/L (15-37); BICARBONATE 22.5 MEQ/L (21.0-32.0); BLOOD UREA NITROGEN 8 MG/DL (7-18); CALCIUM 8.4 MG/DL (8.5-10.1); CHLORIDE 78 MEQ/L (98-107); CREATININE 0.39 MG/DL (0.50-1.00); GLOMERULAR FILTRATION RATE 172 ML/MIN (>89); GLUCOSE,RANDOM 82 MG/DL (74-106); MAGNESIUM 1.8 MG/DL (1.5-2.5); TOTAL BILIRUBIN ADULT 0.5 MG/DL (0.2-1.0); TOTAL PROTEIN 7.2 GM/DL (6.4-8.2)
[2017-08-28 17:21] LABS: SODIUM (NA) 110 MEQ/L (136-145)
[2017-08-28 17:24] LABS: OVALOCYTES 1+ (NORMAL)
--- NOTE | 2017-08-28 17:31 | PD ---
HPI Chief Complaint: GI Complaint Time Seen by Provider: 15:17 Travel History International Travel<30 days: No Contact w/Intl Traveler<30days: No Traveled to known affect area: No History of Present Illness HPI 52-year-old female that presents to the ED for evaluation of nausea vomiting and headache. Per patient she has had this for about 2 weeks now. Per patient she has been seen here before and was found to have sodium low which required admission. Patient was seen here just last week for evaluation of similar but at the time her blood work looked better and she felt better after given medications. Per patient the symptoms continue and she went to Dr. Kamara yesterday who is her oncologist who started her on fluids and give her some medications with symptom improve some of the symptoms but she continues to feel nauseous and per patient she is now unable to keep anything down for the past 24 hours. Given her home pain medication she cannot keep down. She states having a headache. She states that she is scheduled to have an MRI of her head to better evaluate if she has any metastases to her brain. She had a CAT scan 2 weeks ago which was negative. She states that her pain currently is 7 out of 10 but she states that her main complaint is the nausea which makes her feel that she has to throw up and she cannot keep anything down. She last had chemotherapy about a month ago and has not been able to get any more chemotherapy secondary to severe side effects and per patient "allergic reaction ". She denies any other medical issues at this time. She does have multiple allergies to different medications and specifically is allergic to Zofran as well as morphine. 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) Cardiovascular Problems: Yes High Cholesterol: Yes Chemotherapy: No Diminished Hearing: No Diverticulitis: Yes Endocrine: No Gastrointestinal Disorders: Yes (GERD, DIVERTICULITIS, CHRONIC DIARRHEA) GERD: Yes Genitourinary: Yes Hepatitis: No Hiatal Hernia: No Immune Disorder: No Implanted Vascular Access Dvce: Yes Kidney Stones: Yes ("SLUDGE IN KIDNEYS") Musculoskeletal: No Neurologic: No Respiratory: Yes Radiation Therapy: No Sleep Apnea: Yes Ulcer: No Tetanus Vaccination: Unknown Influenza Vaccination: No ?: Not : 5 Para: 2 Miscarriage: 0 : 3 Ovarian Cysts: Yes (3 REMOVED FROM RIGHT OVARY) Tubal Ligation: Yes Past Surgical History Abdominal Surgery: Yes (PARTIAL COLECTOMY DUE TO DIVERTICULITIS AND HERNIA REPAIR WITH GB REMOVAL.) AICD: No Appendectomy: No Arteriovenous Shunt: No Body Medical Devices: LEFT CHEST PORT FOR CHEMO Cardiac Surgery: No Section: Yes Cholecystectomy: Yes Ear Surgery: No Endocrine Surgery: No Eye Surgery: No Genitourinary Surgery: No Gynecologic Surgery: Yes (LASER LAP - ENDOMETRIOSIS, 3 OVARIAN CYSTS REMOVED) Insulin Pump: No Joint Replacement: No Neurologic Surgery: No Oral Surgery: No Pacemaker: No Thoracic Surgery: No Social History Alcohol Use: No Tobacco Use: Yes (2-3 cigs/day) Substance Use: No Allergies-Medications (Allergen,Severity, Reaction): Coded Allergies: codeine (Verified Allergy, Severe, Hives, SOB, 08/24/17) diatrizoate meglumine (Unverified Allergy, Severe, HIVES, 08/24/17) REACTION TO IV DYE ONLY (PO CAN TOLERATE) gadobenic acid (Unverified Allergy, Severe, HIVES, 08/24/17) REACTION TO IV DYE ONLY (PO CAN TOLERATE) gadodiamide (Unverified Allergy, Severe, HIVES, 08/24/17) REACTION TO IV DYE ONLY (PO CAN TOLERATE) gadoteridol (Unverified Allergy, Severe, HIVES, 08/24/17) REACTION TO IV DYE ONLY (PO CAN TOLERATE) iodixanol (Unverified Allergy, Severe, HIVES, 08/24/17) REACTION TO IV DYE ONLY (PO CAN TOLERATE) iohexol (Unverified Allergy, Severe, HIVES, 08/24/17) REACTION TO IV DYE ONLY (PO CAN TOLERATE) morphine (Verified Allergy, Severe, Hives, SHORTNESS OF BREATH , 08/24/17) ondansetron (Verified Allergy, Severe, Hives, 08/24/17) Iodinated Contrast- Oral and IV Dye (Verified Allergy, Intermediate, Hives , 08/24/17) azithromycin (Unverified Allergy, Mild, HIVES, 08/24/17) Reported Meds & Prescriptions Reported Meds & Active Scripts Active Fioricet (Hlzdcjhief-Uckiufwutwpvi-Vgoiucwr) 50-300-40 Mg Cap 1 Cap PO Q4H PRN Senna-Lax (Sennosides) 8.6 Mg Tab 17.2 Mg PO Q12H PRN Oxycontin (Oxycodone HCl) 40 Mg Tab.er.12h 40 Mg PO Q12HR Prochlorperazine Maleate 5 Mg Tab 5 Mg PO Q6H PRN Oxycodone (Oxycodone HCl) 15 Mg Tab 15 Mg PO Q6HR Lorazepam 0.5 Mg Tab 0.5 Mg PO Q8H PRN Nabumetone 750 Mg Tab 750 Mg PO DAILY Reported Amitiza (Lubiprostone) 24 Mcg Cap 24 Mg PO BID Review of Systems Except as stated in HPI: all other systems reviewed are Neg Physical Exam Narrative GENERAL: SKIN: Warm and dry. HEAD: Atraumatic. Normocephalic. EYES: Pupils equal and round. No scleral icterus. No injection or drainage. ENT: No nasal bleeding or discharge. Mucous membranes pink and moist. Tongue is midline. No uvula deviation. NECK: Trachea midline. No JVD. CARDIOVASCULAR: Regular rate and rhythm. No murmurs, S3, S4. RESPIRATORY: No accessory muscle use. Clear to auscultation. Breath sounds equal bilaterally. GASTROINTESTINAL: Abdomen soft, non-tender, nondistended. Hepatic and splenic margins not palpable. MUSCULOSKELETAL: Extremities without clubbing, cyanosis, or edema. No obvious deformities. Full range of motion of the upper and lower extremities bilaterally. 2+ pulses bilaterally. NEUROLOGICAL: Awake and alert. No obvious cranial nerve deficits. Motor grossly within normal limits. Five out of 5 muscle strength in the arms and legs. Normal speech. PSYCHIATRIC: Appropriate mood and affect; insight and judgment normal. Data Data Last Documented VS Vital Signs Date Time Temp Pulse Resp B/P (MAP) Pulse Ox O2 Delivery O2 Flow Rate FiO2 08/28/17 17:32 63 15 149/70 (96) 100 Room Air 08/28/17 14:50 97.6 Orders Orders Complete Blood Count With Diff (08/28/17 15:24) Comprehensive Metabolic Panel (08/28/17 15:24) Prothrombin Time / Inr (Pt) (08/28/17 15:24) Act Partial Throm Time (Ptt) (08/28/17 15:24) Blood Culture (08/28/17 15:24) Lipase (08/28/17 15:24) Urinalysis - C+S If Indicated (08/28/17 15:24) Magnesium (Mg) (08/28/17 15:24) Thyroid Stimulating Hormone (08/28/17 15:24) Chest, Single Ap (08/28/17 15:24) Ct Brain W/O Iv Contrast(Rout) (08/28/17 15:24) Iv Access Insert/Monitor (08/28/17 15:24) Ecg Monitoring (08/28/17 15:24) Oximetry (08/28/17 15:24) Hydromorphone Pf Inj (Dilaudid Pf Inj) (08/28/17 15:30) Prochlorperazine Inj (Compazine Inj) (08/28/17 15:30) Diphenhydramine Inj (Benadryl Inj) (08/28/17 15:30) Sodium Chlor 0.9% 1000 Ml Inj (Ns 1000 M (08/28/17 15:30) Electrocardiogram (08/28/17 ) Urine Culture (08/28/17 17:27) Ceftriaxone Inj (Rocephin Inj) (08/28/17 18:00) Hydromorphone Pf Inj (Dilaudid Pf Inj) (08/28/17 19:15) Metoclopramide Inj (Reglan Inj) (08/28/17 19:15) Admit Order (Ed Use Only) (08/28/17 19:14) Labs Laboratory Tests Test 08/28/17 15:55 08/28/17 17:27 White Blood Count 3.8 TH/MM3 Red Blood Count 4.21 MIL/MM3 Hemoglobin 12.5 GM/DL Hematocrit 33.6 % Mean Corpuscular Volume 79.9 FL Mean Corpuscular Hemoglobin 29.6 PG Mean Corpuscular Hemoglobin Concent 37.0 % Red Cell Distribution Width 14.4 % Platelet Count 215 TH/MM3 Mean Platelet Volume 7.0 FL Neutrophils (%) (Auto) 72.4 % Lymphocytes (%) (Auto) 14.8 % Monocytes (%) (Auto) 12.2 % Eosinophils (%) (Auto) 0.3 % Basophils (%) (Auto) 0.3 % Neutrophils # (Auto) 2.7 TH/MM3 Lymphocytes # (Auto) 0.6 TH/MM3 Monocytes # (Auto) 0.5 TH/MM3 Eosinophils # (Auto) 0.0 TH/MM3 Basophils # (Auto) 0.0 TH/MM3 CBC Comment AUTO DIFF Differential Comment AUTO DIFF CONFIRMED Platelet Estimate NORMAL Platelet Morphology Comment NORMAL Ovalocytes 1+ Prothrombin Time 11.1 SEC Prothromb Time International Ratio 1.1 RATIO Activated Partial Thromboplast Time 31.9 SEC Blood Urea Nitrogen 8 MG/DL Creatinine 0.39 MG/DL Random Glucose 82 MG/DL Total Protein 7.2 GM/DL Albumin 3.7 GM/DL Calcium Level 8.4 MG/DL Magnesium Level 1.8 MG/DL Alkaline Phosphatase 90 U/L Aspartate Amino Transf (AST/SGOT) 17 U/L Alanine Aminotransferase (ALT/SGPT) 15 U/L Total Bilirubin 0.5 MG/DL Sodium Level 110 MEQ/L Potassium Level 3.7 MEQ/L Chloride Level 78 MEQ/L Carbon Dioxide Level 22.5 MEQ/L Anion Gap 10 MEQ/L Estimat Glomerular Filtration Rate 172 ML/MIN Lipase 98 U/L Thyroid Stimulating Hormone 3rd Gen 0.253 uIU/ML Urine Color LIGHT-YELLOW Urine Turbidity CLEAR Urine pH 7.0 Urine Specific [place] 1.010 Urine Protein NEG mg/dL Urine Glucose (UA) NEG mg/dL Urine Ketones 40 mg/dL Urine Occult Blood SMALL Urine Nitrite POS Urine Bilirubin NEG Urine Urobilinogen LESS THAN 2.0 MG/DL Urine Leukocyte Esterase NEG Urine RBC 4 /hpf Urine WBC LESS THAN 1 /hpf Urine Squamous Epithelial Cells <1 /hpf Urine Bacteria MOD /hpf Urine Mucus FEW /lpf Microscopic Urinalysis Comment CULTURE INDICATED MDM Medical Decision Making Medical Screen Exam Complete: Yes Emergency Medical Condition: Yes Medical Record Reviewed: Yes Interpretation(s) CBC & BMP Diagram 08/28/17 15:55 Total Protein 7.2 #, Albumin 3.7, Calcium Level 8.4 L, Magnesium Level 1.8, Alkaline Phosphatase 90, Aspartate Amino Transf (AST/SGOT) 17, Alanine Aminotransferase (ALT/SGPT) 15, Total Bilirubin 0.[address] 08/28/17 1524 Signed Impressions: Service Date/Time: Monday, August 28, 2017 16:33 - CONCLUSION: Stable brain with no acute findings Elder Arndt MD Chest X-Ray 08/28/17 1524 Signed Impressions: Service Date/Time: Monday, August 28, 2017 15:36 - CONCLUSION: No acute disease Elder Arndt MD Differential Diagnosis Nausea and vomiting versus hyponatremia versus electrolyte abnormality versus metastasis versus headache versus migraine headache versus acute on chronic pain versus withdrawal Narrative Course 52-year-old female that presents to the ED for evaluation of nausea vomiting and pain. Patient was properly examined and was found to have signs and symptoms concerning for nausea and vomiting secondary to cancer. Patient appears to have significant discomfort generally takes chronic narcotics and she has been not taken them for about 24 hours secondary to the nausea and vomiting. She cannot keep anything down. Question whether she is having also withdrawals because of this. Labs and imaging were done. Labs and imaging were essentially unremarkable at time for severe hyponatremia of 110. Patient has been hyponatremic before but not this severe. Patient was given 1 bolus of fluid while waiting for lab work as well as pain medication. At this time recommend that she is for admission for further eval. Patient agrees with this. Case discussed with Dr Jolly who wants patient to be admitted by rental car ferry driver due to how low the sodium is. Dr. Coleman agrees to admission to her service. Diagnosis Primary Impression: Hyponatremia Additional Impressions: Headache Qualified Codes: R51 - Headache Cancer Nausea & vomiting Qualified Codes: R11.2 - Nausea with vomiting, unspecified Admitting Information Admitting Physician Requests: Admit Richardson Doe Aug 28, 2017 17:31
[2017-08-28 17:32] VITALS: BP 149/70; PULSE 63; RESP 15; O2SAT 100
[2017-08-28 17:41] LABS: AUTOMATED NEUTROPHIL # 2.7 TH/MM3 (1.8-7.7); BASOPHIL % 0.3 % (0.0-2.0); EOSINOPHIL % 0.3 % (0.0-4.0); HEMATOCRIT 33.6 % (35.0-46.0); HEMOGLOBIN 12.5 GM/DL (11.6-15.3); LYMPH % 14.8 % (9.0-44.0); LYMPHOCYTE # 0.6 TH/MM3 (1.0-4.8); MEAN CELL VOLUME 79.9 FL (80.0-100.0); MEAN CORPUSCULAR HEMOGLOBIN 29.6 PG (27.0-34.0); MONO % 12.2 % (0.0-8.0); MONOCYTE # 0.5 TH/MM3 (0-0.9); NEUT % 72.4 % (16.0-70.0); PLATELET COUNT 215 TH/MM3 (150-450); RED BLOOD COUNT 4.21 MIL/MM3 (4.00-5.30); RED CELL DISTRIBUTION WIDTH 14.4 % (11.6-17.2); WHITE BLOOD COUNT 3.8 TH/MM3 (4.0-11.0)
[2017-08-28 17:47] LABS: BACTERIA, URINE MOD /hpf; BILIRUBIN, URINE NEG (NEG); BLOOD, URINE SMALL (NEG); GLUCOSE,URINE NEG (NEG); KETONE, URINE 40 mg/dL (NEG); MUCUS URINE FEW /lpf (OCC); NITRITE,URINE POS (NEG); SQUAMOUS EPITHELIAL CELL URINE <1 /hpf (0-5); URINE COLOR LIGHT-YELLOW (YELLW/STRAW); URINE LEUKOCYTE ESTERASE NEG (NEG)
[2017-08-28] MEDS ORDERED: cefTRIAXone INJ 1,000 MG in SODIUM CHLORIDE 0.9% INJ 100 ML IV ONE (18:00)
[2017-08-28] MEDS ORDERED: METOCLOPRAMIDE HCL 10 MG/2 ML VIAL IV PUSH ONE (19:15)
[2017-08-28 19:27] VITALS: BP 140/67; PULSE 63; RESP 18; O2SAT 100
[2017-08-28 21:00] VITALS: BP 126/65; PULSE 64; RESP 18; O2SAT 98
--- NOTE | 2017-08-28 22:14 | HHI.HP ---
[facility] Service Critical Care Medicine Primary Care Physician Shelli Leonard MD Admission Diagnosis severe hyponatremia, Nausea and vomit, lung cancer Diagnosis: Travel History International Travel<30 Days: No Contact w/Intl Traveler <30 Da: No Traveled to Known Affected Are: No History of Present Illness [facility] consulted for admission for nausea/vomiting with hyponatremia. 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 She was living in [place] at the time and underwent chemotherapy there. She is originally from this area and relocated here in May and has been under the care of Dr. Kamara. She states that she has not been able to tolerate a couple of chemotherapy agents, stating that she experienced anaphylaxis. Therefore, she has not been on palliative chemotherapy since sometime in July. She has been having daily nausea and vomiting for a couple of weeks. Symptoms initially started after she initiated fentanyl patch which has since been discontinued. She states her nausea is a little bit better than it was but she still vomits 1-2 times per day nonbloody nonbilious and not is not able to take in very much to eat or drink. She has been taking Compazine but without complete relief. She has some mild epigastric discomfort and some abdominal pain in LLQ abdomen where she has ecchymosis from subcut heparin injection. She states that she has been having a constant throbbing headache primarily on the right side of her head for the last 2 weeks associated with some photophobia; not worse on standing or awakening. No phonophobia. She has been dizzy. She denies prior history of headaches. She states she had an appointment with Dr. Kamara yesterday and states MRI brain was ordered and she was supposed to followup; she mentions possible discussion of hospice. ED discussed with hospitalist for admission but [facility] admission was requested due to sodium 110. Patient is alert, no seizures. 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 She may also have adrenal insufficiency. Review of Systems Constitutional: DENIES: Fever Respiratory: DENIES: Cough Cardiovascular: DENIES: Chest pain, Syncope, Dyspnea on Exertion Gastrointestinal: COMPLAINS OF: Abdominal pain, Nausea, Vomiting, DENIES: Black stools, Bloody stools Musculoskeletal: DENIES: Joint pain, Muscle aches Integumentary: DENIES: Rash Hematologic/lymphatic: COMPLAINS OF: Bruising Neurologic: COMPLAINS OF: Headache Psychiatric: DENIES: Confusion Past Family Social History Allergies: Coded Allergies: codeine (Verified Allergy, Severe, Hives, SOB, 08/24/17) diatrizoate meglumine (Unverified Allergy, Severe, HIVES, 08/24/17) REACTION TO IV DYE ONLY (PO CAN TOLERATE) gadobenic acid (Unverified Allergy, Severe, HIVES, 08/24/17) REACTION TO IV DYE ONLY (PO CAN TOLERATE) gadodiamide (Unverified Allergy, Severe, HIVES, 08/24/17) REACTION TO IV DYE ONLY (PO CAN TOLERATE) gadoteridol (Unverified Allergy, Severe, HIVES, 08/24/17) REACTION TO IV DYE ONLY (PO CAN TOLERATE) iodixanol (Unverified Allergy, Severe, HIVES, 08/24/17) REACTION TO IV DYE ONLY (PO CAN TOLERATE) iohexol (Unverified Allergy, Severe, HIVES, 08/24/17) REACTION TO IV DYE ONLY (PO CAN TOLERATE) morphine (Verified Allergy, Severe, Hives, SHORTNESS OF BREATH , 08/24/17) ondansetron (Verified Allergy, Severe, Hives, 08/24/17) Iodinated Contrast- Oral and IV Dye (Verified Allergy, Intermediate, Hives , 08/24/17) azithromycin (Unverified Allergy, Mild, HIVES, 08/24/17) Past Medical History Diverticulitis Gestational diabetes Past Surgical History Port placement left chest Cholecystectomy Partial colectomy due to diverticulitis Hernia repair 2, at least one was with mesh section Reported Medications Nabumetone 750 mg p.o. daily Oxycodone 50 mg p.o. every 6 hours as needed for pain OxyContin 49 g p.o. every 12 hours Fioricet 50/300/41 P.o. every 4 hours as needed for headache Ativan 0.5 mg p.o. every 8 hours as needed for anxiety Amitiza 24 mg p.o. twice daily constipation Senna lax 17.2 mg p.o. every 12 hours as needed for constipation Compazine 5 mill grams p.o. every 6 hours as needed for nausea Family History Father of metastatic prostate cancer at age 60 Mother had a stroke and at age 70 Social History She is an ongoing smoker. She used to smoke a pack of cigarettes per day now smokes a about a half a pack a day No alcohol or illicit drug use Not Has 2 adult children Physical Exam Vital Signs Vital Signs Date Time Temp Pulse Resp B/P (MAP) Pulse Ox O2 Delivery O2 Flow Rate FiO2 08/28/17 21:00 64 18 126/65 (85) 98 Room Air 08/28/17 20:20 18 08/28/17 19:27 63 18 140/67 (91) 100 Room Air 08/28/17 17:32 63 15 149/70 (96) 100 Room Air 08/28/17 15:19 20 08/28/17 14:50 97.6 72 18 141/69 (93) 100 Physical Exam GENERAL: Well-nourished, well-developed patient who is laying in ED stretcher, awake and conversant, somewhat lethargic. SKIN: Warm and dry. Ecchymosis L lower quadrant. HEAD: Atraumatic. Normocephalic. EYES: Pupils equal and round, 3 mm and reactive to 2 mm bilaterally. L eye exophoria (pt states present whole life). No scleral icterus. No injection or drainage. ENT: No nasal bleeding or discharge. Mucous membranes dry. NECK: Trachea midline. Jugular veins flat. CARDIOVASCULAR: Regular rate and rhythm. No murmurs rubs or gallops. RESPIRATORY: No accessory muscle use. Clear to auscultation. Breath sounds equal bilaterally. GASTROINTESTINAL: Abdomen soft, ecchymosis LLQ that is tender. No CVAT. Mild epigastric tenderness. N o rebound or guarding. MUSCULOSKELETAL: Extremities without clubbing, cyanosis, or edema. No obvious deformities. NEUROLOGICAL: Awake and alert, oriented x4, sleepy and lethargic but arouses easily to voice. No obvious cranial nerve deficits. Strength 5/5, no pronator drift. . Normal speech. Laboratory Laboratory Tests Test 08/28/17 15:55 08/28/17 17:27 White Blood Count 3.8 Red Blood Count 4.21 Hemoglobin 12.5 Hematocrit 33.6 Mean Corpuscular Volume 79.9 Mean Corpuscular Hemoglobin 29.6 Mean Corpuscular Hemoglobin Concent 37.0 Red Cell Distribution Width 14.4 Platelet Count 215 Mean Platelet Volume 7.0 Neutrophils (%) (Auto) 72.4 Lymphocytes (%) (Auto) 14.8 Monocytes (%) (Auto) 12.2 Eosinophils (%) (Auto) 0.3 Basophils (%) (Auto) 0.3 Neutrophils # (Auto) 2.7 Lymphocytes # (Auto) 0.6 Monocytes # (Auto) 0.5 Eosinophils # (Auto) 0.0 Basophils # (Auto) 0.0 CBC Comment AUTO DIFF Differential Comment AUTO DIFF CONFIRMED Platelet Estimate NORMAL Platelet Morphology Comment NORMAL Ovalocytes 1+ Prothrombin Time 11.1 Prothromb Time International Ratio 1.1 Activated Partial Thromboplast Time 31.9 Blood Urea Nitrogen 8 Creatinine 0.39 Random Glucose 82 Total Protein 7.2 Albumin 3.7 Calcium Level 8.4 Magnesium Level 1.8 Alkaline Phosphatase 90 Aspartate Amino Transf (AST/SGOT) 17 Alanine Aminotransferase (ALT/SGPT) 15 Total Bilirubin 0.5 Sodium Level 110 Potassium Level 3.7 Chloride Level 78 Carbon Dioxide Level 22.5 Anion Gap 10 Estimat Glomerular Filtration Rate 172 Lipase 98 Thyroid Stimulating Hormone 3rd Gen 0.253 Urine Color LIGHT-YELLOW Urine Turbidity CLEAR Urine pH 7.0 Urine Specific [place] 1.010 Urine Protein NEG Urine Glucose (UA) NEG Urine Ketones 40 Urine Occult Blood SMALL Urine Nitrite POS Urine Bilirubin NEG Urine Urobilinogen LESS THAN 2.0 Urine Leukocyte Esterase NEG Urine RBC 4 Urine WBC LESS THAN 1 Urine Squamous Epithelial Cells <1 Urine Bacteria MOD Urine Mucus FEW Microscopic Urinalysis Comment CULTURE INDICATED Date/Time Source Procedure Growth Status 08/28/17 15:55 Blood Peripheral Aerobic Blood Culture Pending Received 08/28/17 15:55 Blood Peripheral Anaerobic Blood Culture Pending Received 08/28/17 17:27 Urine Clean Catch Urine Culture Pending Received Result Diagram: 08/28/17 1555 08/28/17 1555 Caprini VTE Risk Assessment Caprini VTE Risk Assessment: Mod/High Risk (score >= 2) VTE Pharm Contraindication: Documented Caprini Risk Assessment Model Point Value = 1 Point Value = 2 Point Value = 3 Point Value = 5 Age 41-60 Minor surgery BMI > 25 kg/m2 Swollen legs Varicose veins or History of unexplained or recurrent spontaneous Oral contraceptives or hormone replacement Sepsis (< 1 month) Serious lung disease, including pneumonia (< 1 month) Abnormal pulmonary function Acute myocardial infarction Congestive heart failure (< 1 month) History of inflammatory bowel disease Medical patient at bed rest Age 61-74 Arthroscopic surgery Major open surgery (> 45 min) Laparoscopic surgery (> 45 min) Malignancy Confined to bed (> 72 hours) Immobilizing plaster cast Central venous access Age >= 75 History of VTE Family history of VTE Factor V Leiden Prothrombin [id number] Lupus anticoagulant Anticardiolipin antibodies Elevated serum homocysteine Heparin-induced thrombocytopenia Other congenital or acquired thrombophilia Stroke (< 1 month) Elective arthroplasty Hip, pelvis, or leg fracture Acute spinal cord injury (< 1 month) Prophylaxis Regimen Total Risk Factor Score Risk Level Prophylaxis Regimen 0-1 Low Early ambulation 2 Moderate Order ONE of the following: *Sequential Compression Device (SCD) *Heparin 5000 units SQ BID 3-4 Higher Order ONE of the following medications: *Heparin 5000 units SQ TID *Enoxaparin/Lovenox 40 mg SQ daily (WT < 150 kg, CrCl > 30 mL/min) *Enoxaparin/Lovenox 30 mg SQ daily (WT < 150 kg, CrCl > 10-29 mL/min) *Enoxaparin/Lovenox 30 mg SQ BID (WT < 150 kg, CrCl > 30 mL/min) AND/OR *Sequential Compression Device (SCD) 5 or more Highest Order ONE of the following medications: *Heparin 5000 units SQ TID (Preferred with Epidurals) *Enoxaparin/Lovenox 40 mg SQ daily (WT < 150 kg, CrCl > 30 mL/min) *Enoxaparin/Lovenox 30 mg SQ daily (WT < 150 kg, CrCl > 10-29 mL/min) *Enoxaparin/Lovenox 30 mg SQ BID (WT < 150 kg, CrCl > 30 mL/min) AND *Sequential Compression Device (SCD) Assessment and Plan Problem List: (1) Nausea & vomiting ICD Code: R11.2 - Nausea with vomiting, unspecified Status: Acute (2) Tobacco dependence ICD Code: F17.200 - Tobacco dependence Status: Acute (3) Hyponatremia ICD Code: E87.1 - Hypo-osmolality and hyponatremia Status: Chronic (4) History of colon resection ICD Code: Z98.89 - History of colon resection Status: Chronic (5) History of hernia repair ICD Code: Z98.89 - History of hernia repair Status: Chronic (6) Small cell lung cancer ICD Code: C34.90 - Malignant neoplasm of unspecified part of unspecified bronchus or lung Status: Chronic Assessment and Plan NEURO: Headache Chronic pain secondary to metastatic disease Anxiety Continue OxyContin 40 mill grams p.o. every 12 hours Continue oxycodone 15 mg p.o. every 6 hours as needed Fioricet as needed for headache Ativan 0.5 mg p.o. every 8 hours as needed for anxiety CT brain negative. MRI to evaluate for e/o metastatic disease. RESP: On RA. CV: Elevated BP may be secondary to pain. Avoid Conner-I due to hyponatremia. Clonidine prn SBP >165. GI: Intractable nausea and vomiting s/p cholecystectomy h/o diverticulitis LFT's and lipase normal. Compazine prn nausea Bowel regimen with Amitiza and senna FEN/RENAL: Chronic hyponatremia Prior workup for hyponatremia in june and earlier this month demonstrated Urine osm, urine sodium and uric acid all consistent with SIADH; secondary to malignancy. There is intermittent superimposed hypovolemic hyponatremia due to vomiting. Hypertonic saline is not indicated and would be expected to cause too rapid correction. She has received 1 L NS bolus. Will gently fluid hydrate with NS 50/hr and monitor sodium q6 hours with goal correction <9 MEq over 24 hours. Of note, she received Samsca 15 mg on 08/19 and 08/20. Adrenal insufficiency could also be playing a role as prior cortisol levels were only 7, 4.5 on 08/19. Will perform cosyntropin stim test as per below. ID: Monitor for signs and symptoms of infection HEME: Metastatic small cell lung cancer Not currently on palliative chemo, she states due to anaphylaxis. Patient is known to Dr. Kamara, can discuss with him when MRI complete and arrange f/u. ENDO: TSH low but T4 is normal. Subclinical hypothyroid vs sick euthyroid. Check T3. ?relative Adrenal insufficiency Will perform cosyntropin stim test and treat with hydrocortisone if indicated. ACTH was normal 08/16. Patient states she thought prior PET scan had showed adrenal mets and that a followup 2 weeks ago had showed resolution. I do not have access to this imaging and do not see documentation to confirm this information. 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 Can discuss with Dr. Kamara. Adrenals were normal on noncontrast CT 07/11/17. Followed up cortisol stim which was normal and NOT consistent with adrenal insufficiency. PROPH: SCD for DVT Prophylaxis. Initiate heparin subcut for DVT prophylaxis if MRI negative for intracerebral lesion. Famotidine for stress ulcer prophylaxis. ACCESS: Port left chest is accessed. Code status discussed. Patient states she has talked to Dr. Kamara about making a living will but has not done so yet. Patient desires FULL CODE at this time, stating currently would only want to withhold life support if "in vegetative state". Consult hospitalist to assume care. Level 3 H&P Problem Qualifiers (1) Nausea & vomiting: Qualified Codes: R11.2 - Nausea with vomiting, unspecified Zohreh Coleman MD Aug 28, 2017 22:14
[2017-08-28] MEDS ORDERED: SENNOSIDES 8.6 MG TAB PO PRN ×2 (22:15→22:30)
[2017-08-28] MEDS ORDERED: LACTULOSE SYRUP 20 GM/30 ML CUP PO PRN (22:15)
[2017-08-28] MEDS ORDERED: RESP: ALBUTEROL 2.5 MG/3 ML NEB (PRN) INH (22:15)
[2017-08-28] MEDS ORDERED: COSYNTROPIN 0.25 MG VIAL IV PUSH ONE (22:15)
[2017-08-28] MEDS ORDERED: ACETAMINOPHEN 325 MG TAB PO PRN (22:15)
[2017-08-28] MEDS ORDERED: MISCELLANEOUS NURSING INFORMATION XX SCH (22:15)
[2017-08-28] MEDS ORDERED: BISACODYL 10 MG SUPP RECTAL PRN (22:15)
[2017-08-28] MEDS ORDERED: MAGNESIUM HYDROXIDE SUSP 30 ML CUP PO PRN (22:15)
[2017-08-28] MEDS ORDERED: SODIUM CHLORIDE 0.9% FLUSH 10 ML FLUSH IV FLUSH PRN (22:15)
[2017-08-28 22:24] VITALS: BP 130/72; PULSE 60; RESP 18; O2SAT 97
[2017-08-28] MEDS ORDERED: PROCHLORPERAZINE INJ 10 MG/2 ML VIAL IV PUSH PRN (22:30)
[2017-08-28] MEDS: LORazepam 0.5 MG TAB PO PRN (22:57)
[2017-08-28 23:00] VITALS: PULSE 62
[2017-08-28] MEDS: SODIUM CHLOR 0.9% 1000 ML INJ 1,000 ML IV SCH (23:05)
[2017-08-29] VITALS (20 sets, daily range): BP systolic 128–160; BP diastolic 80–90; PULSE 16–93; RESP 16–19; TEMP 97.8–98.6; O2SAT 98–100
[2017-08-29] MEDS ORDERED: cloNIDine HCL 0.1 MG TAB PO PRN (02:00)
[2017-08-29] MEDS ORDERED: COSYNTROPIN 0.25 MG VIAL IV PUSH ONE (02:13)
[2017-08-29] MEDS: METHOCARBAMOL 500 MG TAB PO PRN (05:59)
[2017-08-29 07:55] LABS: BICARBONATE 20.6 MEQ/L (21.0-32.0); CALCIUM 7.8 MG/DL (8.5-10.1); CREATININE 0.37 MG/DL (0.50-1.00)
[2017-08-29] MEDS: DOCUSATE SODIUM 50 MG/SENNA 8.6 MG TAB PO SCH ×2 (09:00→21:22)
[2017-08-29] MEDS: FAMOTIDINE 20 MG TAB PO SCH ×2 (09:00→21:22)
[2017-08-29] MEDS: SODIUM CHLORIDE 0.9% FLUSH 10 ML FLUSH IV FLUSH SCH ×2 (09:00→21:22)
[2017-08-29] MEDS ORDERED: AMITIZA 24 MCG PO SCH (09:00)
[2017-08-29] MEDS: LORazepam 0.5 MG TAB PO PRN (09:00)
[2017-08-29] MEDS: oxyCODONE HCL 40 MG CONTROLLED RELEASE TAB PO SCH ×2 (09:10→21:21)
[2017-08-29] MEDS: ACETAMIN 325 MG/BUTALBITAL 50 MG/CAFFEINE 40 MG TAB PO PRN ×2 (09:10→21:26)
[2017-08-29 13:23] LABS: FREE T3 2.07 PG/ML (2.18-3.98); FREE T4 1.31 NG/DL (0.76-1.46)
--- NOTE | 2017-08-29 14:26 | EKG ---
Date Performed: 08/28/2017 Time Performed: 18:15:33 PTAGE: 52 years EKG: Sinus rhythm WITH FIRST DEGREE AV BLOCK PROLONGED QT INTERVAL ABNORMAL ECG Since PREVIOUS TRACING , no significant change noted PREVIOUS TRACIN08/24/2017 10.21 DOCTOR: Marsha Ramirez Interpretating Date/Time 08/29/2017 14:24:50
[2017-08-29] MEDS ORDERED: LORazepam 2 MG/ML VIAL IM ONE (14:45)
[2017-08-29] MEDS ORDERED: LORazepam 2 MG/ML VIAL IV PUSH ONE (15:00)
[2017-08-29] MEDS ORDERED: TOLVAPTAN 15 MG TAB PO ONE (15:30)
[2017-08-29] MEDS ORDERED: GADODIAMIDE PF 287 MG/ML 20 ML VIAL (for RAD MRI) IVCONTRAST ONE (15:43)
--- NOTE | 2017-08-29 15:48 | HHI.PR ---
Subjective Remarks patient tolerated po today no nausea or vomiting Na 111 for MRI- "claustrophobic" per patient and daughter- speech "different feels not right " on exam - tongue deviated to the right per family- poor po intake since discharge from last visit, felt nauseated, no appetite, she is afraid to eat because she feels that food will come up no diarrhea, some constipation labs reviewed Na level - 08/16- admission - 117 08/21- on discharge - 135 08/24- came to ER visit - 129 08/29- on admission 111 Objective Vitals Vital Signs Date Time Temp Pulse Resp B/P (MAP) Pulse Ox O2 Delivery O2 Flow Rate FiO2 08/29/17 12:22 98.2 60 18 158/84 (108) 99 08/29/17 08:46 98.6 93 19 160/82 (108) 98 08/29/17 07:00 61 08/29/17 06:00 62 08/29/17 05:57 61 16 128/80 (96) 100 08/29/17 05:00 58 08/29/17 04:28 65 08/29/17 04:27 16 08/29/17 04:00 62 08/29/17 04:00 62 08/29/17 02:00 62 08/29/17 01:00 62 08/29/17 00:00 16 08/29/17 00:00 62 08/29/17 00:00 98.4 61 16 139/82 (101) 100 08/28/17 23:00 62 08/28/17 22:24 60 18 130/72 (91) 97 Room Air 08/28/17 21:00 64 18 126/65 (85) 98 Room Air 08/28/17 20:20 18 08/28/17 19:27 63 18 140/67 (91) 100 Room Air 08/28/17 17:32 63 15 149/70 (96) 100 Room Air I/O 08/28/17 08/28/17 08/28/17 08/29/17 08/29/17 08/29/17 07:00 15:00 23:00 07:00 15:00 23:00 Intake Total 1100 ml 480 ml Output Total 800 ml Balance 1100 ml -320 ml Intake Oral 480 ml IV Total 1100 ml Output Urine Total 800 ml # Voids 1 Result Diagram: 08/28/17 3365 08/29/17 0615 Imaging Last Impressions Head CT 08/28/17 1524 Signed Impressions: Service Date/Time: Monday, August 28, 2017 16:33 - CONCLUSION: Stable brain with no acute findings Elder Arndt MD Chest X-Ray 08/28/17 1524 Signed Impressions: Service Date/Time: Monday, August 28, 2017 15:36 - CONCLUSION: No acute disease Elder Arndt MD Objective Remarks awake and alert anicteric tongue deviated to the right no nuchal rigidity no rales regular rhyhtm abdomen soft, good bowel sounds extremities no edema A/P Assessment and Plan 52 years old female with Lung Cancer Metastatic small cell lung cancer Headache Chronic pain secondary to metastatic disease Anxiety Continue OxyContin 40 mill grams p.o. every 12 hours Continue oxycodone 15 mg p.o. every 6 hours as needed Fioricet as needed for headache Ativan 0.5 mg p.o. every 8 hours as needed for anxiety CT brain negative. MRI ordered to evaluate for mets- Consult her Oncologist in am - Dr. Kamara PT consult- eval and treat Mild Oropharyngeal dysarthria r/o CVA/mets - on exam- tongue deviated to the right, good gag reflex - MRI brain pending - speech therapy consult to evaluate - consider neurology consult Recurrent hyponatremia- no sign of fluid excess- awake and alert Prior workup all consistent with SIADH; secondary to malignancy. There is intermittent superimposed hypovolemic hyponatremia due to vomiting. Will gently fluid hydrate with NS 50/hr Cortisol stim test normal Review levels Na level - 08/16- admission - 117- patient received 2 separate doses of Samsca that admission 08/21- on discharge - 135 4/- came to ER visit - 129 08/29- on admission 111 Will give 15 mg po Samsca today x 1. Recheck Na in am Cosyntropin stim test normal Intractable nausea and vomiting s/p cholecystectomy h/o diverticulitis LFT's and lipase normal. 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 Subclinical hypothyroid vs sick euthyroid. ?relative Adrenal insufficiency cosyntropin stim test and treat with hydrocortisone if indicated. ACTH was normal 08/16. Patient states she thought prior PET scan had showed adrenal mets and that a followup 2 weeks ago had showed resolution. 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 Adrenals were normal on noncontrast CT 07/11/17. Followed up cortisol stim which was normal and NOT consistent with adrenal insufficiency. PROPH: SCD for DVT Prophylaxis. Initiate heparin subcut for DVT prophylaxis if MRI negative for intracerebral lesion. Famotidine for stress ulcer prophylaxis. ACCESS: Port left chest is accessed. Code status discussed. with patient on admission by [facility] Patient states she has talked to Dr. Kamara about making a living will but has not done so yet. Patient desires FULL CODE at this time, stating currently would only want to withhold life support if "in vegetative state". Lisa Da Silva MD Aug 29, 2017 15:48
--- NOTE | 2017-08-29 17:03 | RADRPT ---
EXAM DATE/TIME: 08/29/2017 15:36 [facility] COMPARISON: MRI BRAIN W & W/O CONTRAST, July 13, 2017, 17:46. INDICATIONS : Tumor. Headaches and dizziness. CONTRAST: 16 cc Omniscan (gadodiamide) IV MEDICAL HISTORY : Carcinoma, lung. Metastatic, bone. Diverticulitis. SURGICAL HISTORY : section. Cholecystectomy. Colon resection. ENCOUNTER: Initial ACUITY: 2 day PAIN SCORE: 3/10 LOCATION: cranial TECHNIQUE: Multiplanar, multisequence MRI of the brain was performed both prior to and following the administrat ion of paramagnetic contrast. FINDINGS: CEREBRUM: The ventricles are normal for age. There small focal lucencies thought to represent small old infarc t at the left anterior internal capsule and at the right extreme capsule. No evidence of midline shif t, mass lesion, hemorrhage or acute infarction. No extraaxial fluid collections are seen. The pitui tary gland and suprasellar cistern are normal in configuration. WHITE MATTER: No significant signal abnormalities are seen in the white matter. POSTERIOR FOSSA: The cerebellum and brainstem are intact. The 4th ventricle is midline. The cerebellopontine angle is unremarkable. The cerebellar tonsils are normal in position. DIFFUSION IMAGING: No focal areas of restricted diffusion are seen. No evidence of acute infarction. EXTRACRANIAL: The visualized portions of the orbits and paranasal sinuses are unremarkable. POST-CONTRAST: No abnormal areas of parenchymal or dural enhancement. No evidence of blood-brain barrier breakdown. CONCLUSION: No acute disease. There are old lacunar infarcts. There is no evidence of metastatic disease. Elder Guy MD on August 29, 2017 at 16:44 Board Certified Radiologist. This report was verified electronically.
[2017-08-29] MEDS: SODIUM CHLOR 0.9% 1000 ML INJ 1,000 ML IV SCH (18:07)
[2017-08-30] VITALS (22 sets, daily range): BP systolic 100–151; BP diastolic 64–84; PULSE 56–85; RESP 16–18; TEMP 97.7–98.7; O2SAT 97–100
[2017-08-30] MEDS: LORazepam 0.5 MG TAB PO PRN ×2 (00:41→12:28)
[2017-08-30] MEDS: SODIUM CHLOR 0.9% 1000 ML INJ 1,000 ML IV SCH (04:15)
[2017-08-30 04:58] LABS: BICARBONATE 22.8 MEQ/L (21.0-32.0); CALCIUM 7.9 MG/DL (8.5-10.1); CREATININE 0.38 MG/DL (0.50-1.00)
[2017-08-30] MEDS: ACETAMIN 325 MG/BUTALBITAL 50 MG/CAFFEINE 40 MG TAB PO PRN ×2 (07:08→21:34)
[2017-08-30] MEDS: cefTRIAXone INJ 1,000 MG in SODIUM CHLORIDE 0.9% INJ 100 ML IV SCH (08:31)
[2017-08-30] MEDS: oxyCODONE HCL 40 MG CONTROLLED RELEASE TAB PO SCH ×2 (08:31→21:31)
[2017-08-30] MEDS: DOCUSATE SODIUM 50 MG/SENNA 8.6 MG TAB PO SCH ×2 (08:31→21:31)
[2017-08-30] MEDS: FAMOTIDINE 20 MG TAB PO SCH ×2 (08:31→21:31)
[2017-08-30] MEDS: SODIUM CHLORIDE 0.9% FLUSH 10 ML FLUSH IV FLUSH SCH ×2 (08:32→21:40)
--- NOTE | 2017-08-30 08:53 | PD.CONS ---
History of Present Illness Service Hematology/oncology Consult Requested By The hospitalist service. Reason for Consult Metastatic small cell carcinoma of the lung. SIADH with resultant severe hyponatremia. Primary Care Physician Shelli Leonard MD Diagnoses: (1) Small cell lung cancer (2) SIADH (syndrome of inappropriate ADH production) History of Present Illness Chief complaint: 1. Severe persistent headaches ongoing for the past 10 days. 2. Nausea and vomiting with inability to hold down liquids and solids. 3. Mid line back pain which is been chronic. History of presenting illness: Ms. Moncada is a 52-year-old female who was diagnosed with metastatic small cell carcinoma of lung primary in February 2017. She was living in [place] at that time. She had extensive bony metastases involving her axial skeleton as well as her pelvis at the time of diagnosis, these are biopsy proven. She was treated with 3 cycles of cisplatin and etoposide while in [place] between February and April 2017. She then moved back to the [facility] to be closer to family. She established follow-up with our group in June 2017 I believe and since then has received 1 additional cycle of systemic chemotherapy with carboplatin and intended use of etoposide but on day 1 of etoposide she developed an anaphylactic-like reaction and this treatment was interrupted and she was never rechallenged. Plans were underway to initiate her on outpatient oral Topotecan, but this is not yet been initiated due to recurrent bouts of severe hyponatremia related to SIADH. About 2 weeks ago this patient was admitted to this facility with severe hyponatremia, she had symptoms of headaches and nausea and vomiting. She also had some confusion. Imaging studies of the brain were performed which ruled out intracranial metastatic disease. She underwent an extensive workup including an evaluation by nephrology at her last admission and she was initiated on tolvaptan. With this medication her sodium levels normalized, she however was discharged home and I believe this medication was not resumed in the outpatient setting. Over the course of her 1 week post discharge she developed the same symptoms with headaches and nausea and vomiting. She was found to have a declining sodium level last week in my clinic in the high 120s. Last Wednesday the patient saw me in my clinic reporting severe headaches. She was treated with corticosteroids and her symptoms were not any better. She was advised evaluation in the emergency department which she declined at that time. She presented to [facility] emergency department on 08/29/2017 for further workup and evaluation. Her sodium at the time of this admission was 111. She was initiated on tolvaptan and normal saline with improvement in her sodium from 111 to 117 over the initial 18 hours of admission. She feels somewhat improved, I have been asked to see her to help coordinate care going forward. Review of Systems Constitutional: COMPLAINS OF: Fatigue, Weight loss, Dizziness, Change in appetite (Decreased appetite), DENIES: Diaphoretic episodes, Fever, Weight gain , Chills, Night Sweats Endocrine: DENIES: Abnorml menstrual pattern, Heat/cold intolerance, Polydipsia , Polyuria, Polyphagia Eyes: COMPLAINS OF: Blurred vision, Double Vision, DENIES: Diplopia, Eye inflammation, Eye pain, Vision loss, Photosensitivity Ears, nose, mouth, throat: COMPLAINS OF: Vertigo, DENIES: Tinnitus, Hearing loss, Nasal discharge, Oral lesions, Throat pain, Hoarseness, Ear Pain, Running Nose, Epistaxis, Sinus Pain, Toothache, Odynophagia Respiratory: COMPLAINS OF: Cough, DENIES: Apneas, Snoring, Wheezing, Hemoptysis , Sputum production, Shortness of breath Cardiovascular: COMPLAINS OF: Dyspnea on Exertion, DENIES: Chest pain, Palpitations, Syncope, PND, Lower Extremity Edema, Orthopnea, Claudication Gastrointestinal: COMPLAINS OF: Nausea, Vomiting, Anorexia, DENIES: Abdominal pain, Black stools, Bloody stools, Constipation, Diarrhea, Difficulty Swallowing Genitourinary: DENIES: Abnormal vaginal bleeding, Dysmenorrhea, Dyspareunia, Sexual dysfunction, Urinary frequency, Urinary incontinence, Urgency, Hematuria , Dysuria, Nocturia, Vaginal discharge Musculoskeletal: COMPLAINS OF: Joint pain, Muscle aches, Stiffness, Back pain, DENIES: Joint Swelling, Neck pain Integumentary: DENIES: Abnormal pigmentation, Pruritus, Rash, Nail changes, Breast masses, Breast skin changes, Nipple discharge Hematologic/lymphatic: DENIES: Bruising, Lymphadenopathy Immunologic/allergic: DENIES: Eczema, Urticaria Neurologic: COMPLAINS OF: Headache, Poor Balance, DENIES: Abnormal gait, Localized weakness, Paresthesias, Seizures, Speech Problems, Tremor Psychiatric: COMPLAINS OF: Anxiety, Confusion, Depression, DENIES: Mood changes , Hallucinations, Agitation, Suicidal Ideation, Homicidal Ideation, Delusions Except as stated in HPI: all other systems reviewed are Neg Past Family Social History Allergies: Coded Allergies: codeine (Verified Allergy, Severe, Hives, SOB, 08/24/17) diatrizoate meglumine (Unverified Allergy, Severe, HIVES, 08/24/17) REACTION TO IV DYE ONLY (PO CAN TOLERATE) gadobenic acid (Unverified Allergy, Severe, HIVES, 08/24/17) REACTION TO IV DYE ONLY (PO CAN TOLERATE) gadodiamide (Unverified Allergy, Severe, HIVES, 08/24/17) REACTION TO IV DYE ONLY (PO CAN TOLERATE) gadoteridol (Unverified Allergy, Severe, HIVES, 08/24/17) REACTION TO IV DYE ONLY (PO CAN TOLERATE) iodixanol (Unverified Allergy, Severe, HIVES, 08/24/17) REACTION TO IV DYE ONLY (PO CAN TOLERATE) iohexol (Unverified Allergy, Severe, HIVES, 08/24/17) REACTION TO IV DYE ONLY (PO CAN TOLERATE) morphine (Verified Allergy, Severe, Hives, SHORTNESS OF BREATH , 08/24/17) ondansetron (Verified Allergy, Severe, Hives, 08/24/17) Iodinated Contrast- Oral and IV Dye (Verified Allergy, Intermediate, Hives , 08/24/17) azithromycin (Unverified Allergy, Mild, HIVES, 08/24/17) Past Medical History Metastatic small cell carcinoma of the lung. Hyponatremia SIADH Secondary metastases to the bone C. difficile colitis Diverticulitis Hypercholesterolemia Hyponatremia Persistent headaches Past Surgical History section Cholecystectomy Hernia repair Image guided biopsy of bone mass Infusion port placement Partial sigmoid resection. Active Ordered Medications Active medications: Ceftriaxone 1 g IV every 24 hours. Sodium chloride 50 cc/h Fioricet 1 tablet p.o. every 4 hours Tylenol 650 mg p.o. every 6 hours as needed for pain Albuterol 2.5 mg nebulized every 2 hours as needed for shortness of breath or wheezing. Clonidine 0.1 mg p.o. every 6 hours as needed for hypertension. Dulcolax 10 mg per rectum as needed for severe constipation. Darlene-Colace 1 tablet p.o. twice daily as needed for constipation Pepcid 20 mg p.o. every 12 hours. Lactulose 30 mL p.o. daily for severe constipation Ativan 0.5 mg p.o. every 8 hours as needed for anxiety. Magnesium hydroxide 30 mL p.o. every 12 hours need for mild constipation. Methocarbamol 750 mg p.o. every 8 hours as needed for muscle spasms Oxycodone extended release 40 mg p.o. every 12 Compazine 5 mg IV every 6 hours needed for nausea Tolvaptan 15 mg p.o. daily Family History Mother: Congestive heart failure () Father: Prostate carcinoma () Social History Patient is single, she lives at home with her daughter. 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 Physical Exam Vital Signs Vital Signs Date Time Temp Pulse Resp B/P (MAP) Pulse Ox O2 Delivery O2 Flow Rate FiO2 08/30/17 06:00 56 08/30/17 05:08 59 08/30/17 04:09 98.2 56 16 105/69 (81) 99 08/30/17 04:02 56 08/30/17 03:01 57 08/30/17 02:03 57 08/30/17 01:02 62 08/30/17 00:32 98.0 61 16 151/84 (106) 99 08/30/17 00:00 63 08/29/17 23:06 79 08/29/17 22:04 65 08/29/17 21:01 60 08/29/17 21:00 98.4 64 16 154/87 (109) 100 08/29/17 20:01 70 08/29/17 19:03 61 08/29/17 17:02 97.8 72 16 153/90 (111) 99 08/29/17 15:00 64 08/29/17 12:22 98.2 60 18 158/84 (108) 99 08/29/17 11:00 65 08/29/17 08:46 98.6 93 19 160/82 (108) 98 Physical Exam GENERAL: Middle-aged lady, laying in bed, she initially had a pillow over her head, she is awake and alert, she sits up and converses in full sentences. She appears comfortable. SKIN: No rashes, ecchymoses or lesions. Cool and dry. HEAD: Atraumatic. Normocephalic. No temporal or scalp tenderness. EYES: Pupils equal round and reactive. Extraocular motions intact. No scleral icterus. No injection or drainage. ENT: Nose without bleeding, purulent drainage or septal hematoma. Throat without erythema, tonsillar hypertrophy or exudate. Uvula midline. Airway patent. NECK: Trachea midline. No JVD or lymphadenopathy. Supple, nontender, no meningeal signs. CARDIOVASCULAR: Regular rate and rhythm without murmurs, gallops, or rubs. RESPIRATORY: Good air movement bilaterally with prolonged expiratory phase. Decreased bibasilar breath sounds. GASTROINTESTINAL: Abdomen soft, non-tender, nondistended. No hepato-splenomegaly , or palpable masses. No guarding. MUSCULOSKELETAL: Extremities without clubbing, cyanosis, or edema. No joint tenderness, effusion, or edema noted. No calf tenderness. Negative Homans sign bilaterally. NEUROLOGICAL: Awake and alert. Cranial nerves II through XII intact. Motor and sensory grossly within normal limits. Five out of 5 muscle strength in all muscle groups. Normal speech. Laboratory Laboratory Tests Test 08/29/17 12:30 08/30/17 04:10 Free Thyroxine 1.31 Free Triiodothyronine (T3) pg/dL 2.07 Blood Urea Nitrogen 5 Creatinine 0.38 Random Glucose 89 Calcium Level 7.9 Sodium Level 117 Potassium Level 3.2 Chloride Level 85 Carbon Dioxide Level 22.8 Anion Gap 9 Estimat Glomerular Filtration Rate 177 Date/Time Source Procedure Growth Status 08/28/17 15:55 Blood Peripheral Aerobic Blood Culture - Preliminary NO GROWTH IN 1 DAY Resulted 08/28/17 15:55 Blood Peripheral Anaerobic Blood Culture - Preliminary NO GROWTH IN 1 DAY Resulted 08/28/17 17:27 Urine Clean Catch Urine Culture - Preliminary Gram Negative [place]on Resulted Result Diagram: 08/28/17 1555 08/30/17 0410 Imaging MRI of the brain with and without contrast dated 08/29/2017: Conclusion: No acute disease, there are old lacunar infarcts, no evidence of metastatic disease. Course Patient has been admitted to the hospital. She has been initiated on tolvaptan 15 mg p.o. daily for management of SIADH. Her sodium is improving. Her headache is slightly improved with Fioricet and improvement in sodium levels. She tells me she would like to try to work a little bit on eating today after having not been able to eat or drink much over the past 1 week essentially. Assessment and Plan Assessment and Plan Ms. Moncada is a very pleasant 52-year-old female with an extensive past history of tobaccoism. The patient was diagnosed in February 2017 with metastatic small cell carcinoma of the lung with extensive bony metastases. She was treated with 3 cycles of cisplatin and etoposide between February and April 2017. In July 2017 after establishing follow-up with our practice following her relocation from [place] she was treated with cycle 4 day 1 therapy with carboplatin and etoposide. Shortly into the etoposide infusion she developed a severe anaphylactoid type reaction. I did speak to her primary oncologist from [place] who confirmed the patient had similar though less severe reactions in [place] prior to moving down to [place]. She was recommended restaging imaging studies and in July 2017 she was found to have minimally active disease, I was unable to compare actual images to pretreatment images from [place] however based on the descriptive reports sent down it appears she had a good response to treatment. From systemic therapeutic standpoint she had been recommended transition to Topotecan in the second line setting. I had recommended this because she would no longer be a candidate for etoposide. Her major issue over the past several weeks however has been hyponatremia related to SIADH. When the patient's sodium drops down to critical levels she developed symptoms of nausea, vomiting, fatigue and severe headaches. She has now been initiated on tolvaptan, her sodium level has increased since she presented to the emergency department and her symptoms of headaches and nausea have responded. Plan: 1. SIADH: She response to tolvaptan she did in her prior hospitalization. It appears this medication was not initiated in the outpatient setting I believe secondary to her insurance not covering it. prior to discharge, and effort will need to be made to ensure she has this medication filled at the time of discharge to avoid rehospitalization for recurrent symptoms and recurrent hyponatremia. 2. Metastatic small cell carcinoma the lung: She has Topotecan delivered to her home, she is awaiting discharge symptoms before she started this from the hospital and stabilization before she starts this medication. Continue ongoing care. May discharge home when sodium is closer normal and when outpatient tolvaptan is approved by her insurance company and filled by the pharmacy. Tayo Kamara MD Aug 30, 2017 08:53
[2017-08-30] MEDS ORDERED: SODIUM CHLORIDE 0.9% FLUSH 10 ML FLUSH IV FLUSH PRN (09:00)
[2017-08-30] MEDS ORDERED: TOLVAPTAN 15 MG TAB PO SCH (10:00)
[2017-08-30] MEDS ORDERED: POTASSIUM CHLORIDE 10 MEQ CONTROLLED RELEASE TAB PO ONE (11:00)
--- NOTE | 2017-08-30 21:58 | HHI.PR ---
Subjective Remarks Patient is feeling depressed today, overwhelmed by her nausea and weakness. Objective Vitals Vital Signs Date Time Temp Pulse Resp B/P (MAP) Pulse Ox O2 Delivery O2 Flow Rate FiO2 08/30/17 21:20 97.7 74 16 107/72 (84) 98 08/30/17 18:37 73 08/30/17 16:45 98.4 66 18 118/65 (82) 100 08/30/17 12:36 98.0 70 18 122/64 (83) 97 08/30/17 12:10 76 08/30/17 08:30 98.4 65 18 119/75 (90) 100 08/30/17 08:10 58 08/30/17 06:00 56 08/30/17 05:08 59 08/30/17 04:09 98.2 56 16 105/69 (81) 99 08/30/17 04:02 56 08/30/17 03:01 57 08/30/17 02:03 57 08/30/17 01:02 62 08/30/17 00:32 98.0 61 16 151/84 (106) 99 08/30/17 00:00 63 08/29/17 23:06 79 08/29/17 22:04 65 I/O 08/29/17 08/29/17 08/29/17 08/30/17 08/30/17 08/30/17 07:00 15:00 23:00 07:00 15:00 23:00 Intake Total 480 ml 960 ml 1720 ml 100 ml 500 ml Output Total 800 ml 2950 ml 1650 ml Balance -320 ml 960 ml -1230 ml 100 ml -1150 ml Intake Oral 480 ml 960 ml 720 ml 500 ml IV Total 1000 ml 100 ml Output Urine Total 800 ml 2950 ml 1650 ml # Voids 6 # Bowel Movements 1 Result Diagram: 08/28/17 1555 08/30/17 0410 Objective Remarks GENERAL: Well-nourished, well-developed patient.weakened by lung cancer SKIN: Warm and dry. HEAD: Normocephalic. EYES: No scleral icterus. No injection or drainage. NECK: Supple, trachea midline. No JVD or lymphadenopathy. CARDIOVASCULAR: Regular rate and rhythm without murmurs, gallops, or rubs. RESPIRATORY: Breath sounds equal bilaterally. No accessory muscle use. GASTROINTESTINAL: Abdomen soft, non-tender, nondistended. EXTREMITIES: No cyanosis, or edema. NEUROLOGICAL: Awake, alert, and oriented x 3. Non-focal. PSYCH: Depressed affect, crying A/P Assessment and Plan 52 years old female with Lung Cancer Metastatic small cell lung cancer Managing chronic pain with oxycontin and oxycodone Awaiting improvement with nausea and vomiting before being able to begin PO Chemotherapy Appreciate Oncology consult Intractable nausea and vomiting Continue Compazine prn Continue bowel regimen with Amitiza and senna Continue rehydration Recommended medical marijuana Headache Fioricet PRN CT Justin negative Anxiety Ativan PRN Mild Oropharyngeal dysarthria r/o CVA/mets on exam- tongue deviated to the right, good gag reflex MRI Shows old lacunar infarcts, no acute processes Appreciate speech therapy consult Recurrent hyponatremia- no sign of fluid excess- awake and alert Prior workup all consistent with SIADH; secondary to malignancy. Superimposed hypovolemic hyponatremia due to vomiting. Gentle IVF replacement Sodium slow to improve Follow effect of Samsca today Cosyntropin stim test normal DVT Prophylaxis SCDs Douglas Bey MD Aug 30, 2017 21:58
[2017-08-31] VITALS (19 sets, daily range): BP systolic 100–134; BP diastolic 63–84; PULSE 64–93; RESP 16–20; TEMP 96.4–99.3; O2SAT 97–99
[2017-08-31] MEDS: SODIUM CHLOR 0.9% 1000 ML INJ 1,000 ML IV SCH (00:41)
[2017-08-31 05:08] LABS: BICARBONATE 23.6 MEQ/L (21.0-32.0); CALCIUM 8.4 MG/DL (8.5-10.1); CREATININE 0.6 MG/DL (0.50-1.00)
--- NOTE | 2017-08-31 08:01 | PD.ONC.PN ---
Subjective Subjective Remarks Patient seen and examined, vital signs, labs and medications reviewed. Subjectively; she reports feeling much improved this morning, her headache in particular has nearly resolved. She continues to have lower back pain and thinks this may be related to her laying in bed. She tells me she would like to go home as soon as it would be safe for her to do so. Her appetite is somewhat improved but she tells me she has been craving sweets things and candy more than regular food. She also reports having constipation and would like something to help relieve this. Objective Data Date Time Temp Pulse Resp B/P (MAP) Pulse Ox O2 Delivery O2 Flow Rate FiO2 08/31/17 06:05 70 08/31/17 05:00 67 08/31/17 04:02 66 08/31/17 03:13 98.0 71 18 105/63 (77) 99 08/31/17 03:05 64 08/31/17 02:04 65 08/31/17 01:00 68 08/31/17 00:02 68 08/30/17 23:23 98.7 69 18 100/72 (81) 98 08/30/17 23:00 76 08/30/17 22:03 72 08/30/17 21:20 97.7 74 16 107/72 (84) 98 08/30/17 21:01 85 08/30/17 20:06 74 08/30/17 19:03 66 08/30/17 18:37 73 08/30/17 16:45 98.4 66 18 118/65 (82) 100 08/30/17 12:36 98.0 70 18 122/64 (83) 97 08/30/17 12:10 76 08/30/17 08:30 98.4 65 18 119/75 (90) 100 08/30/17 08:10 58 08/31/17 08/31/17 08/31/17 06:59 14:59 22:59 Intake Total 1720 ml Output Total 3400 ml Balance -1680 ml Result Diagram: 08/28/17 7947 08/31/17 5100 Laboratory Results Laboratory Tests Test 08/31/17 03:30 Blood Urea Nitrogen 7 MG/DL Creatinine 0.60 MG/DL Random Glucose 125 MG/DL Calcium Level 8.4 MG/DL Sodium Level 134 MEQ/L Potassium Level 3.6 MEQ/L Chloride Level 103 MEQ/L Carbon Dioxide Level 23.6 MEQ/L Anion Gap 7 MEQ/L Estimat Glomerular Filtration Rate 105 ML/MIN Culture Results Microbiology Date/Time Source Procedure Growth Status 08/28/17 15:55 Blood Peripheral Aerobic Blood Culture - Preliminary NO GROWTH IN 2 DAYS Resulted 08/28/17 15:55 Blood Peripheral Anaerobic Blood Culture - Preliminary NO GROWTH IN 2 DAYS Resulted 08/28/17 15:50 Blood Peripheral Aerobic Blood Culture - Preliminary NO GROWTH IN 2 DAYS Resulted 08/28/17 15:50 Blood Peripheral Anaerobic Blood Culture - Preliminary NO GROWTH IN 2 DAYS Resulted 08/28/17 17:27 Urine Clean Catch Urine Culture - Final Escherichia Coli Complete Administered Medications Medications (Trade) Dose Ordered Sig/Skyler Route PRN Reason Start Time Stop Time Status Last Admin Dose Admin Sodium Chloride 1,000 ml @ 50 mls/hr Q20H IV 08/28/17 22:07 08/31/17 00:41 Sodium Chloride (NS Flush) 2 ml BID IV FLUSH 08/29/17 09:00 08/30/17 21:40 Famotidine (Pepcid) 20 mg Q12HR PO 08/29/17 09:00 08/30/17 21:31 Senna/Docusate Sodium (Darlene-Colace) 1 tab BID PO 08/29/17 09:00 08/30/17 21:31 Lorazepam (Ativan) 0.5 mg Q8H PRN PO ANXIETY 08/28/17 22:30 08/30/17 12:28 Oxycodone HCl (OxyCONTIN CR) 40 mg Q12HR PO 08/29/17 09:00 08/30/17 21:31 Acetaminophen/ Butalbital/ Caffeine (Fioricet 325-50-40) 1 tab Q4H PRN PO HEADACHE 08/28/17 22:45 08/30/17 21:34 Oxycodone HCl (Roxicodone) 15 mg Q6HR PO 08/29/17 00:00 08/31/17 05:58 Methocarbamol (Robaxin) 750 mg Q8HR PRN PO MUSCLE SPASM 08/29/17 05:30 08/29/17 05:59 Ceftriaxone Sodium 1000 mg/ Sodium Chloride 100 ml @ 200 mls/hr Q24H IV 08/30/17 08:00 08/30/17 08:31 Tolvaptan (Samsca) 15 mg DAILY PO 08/30/17 10:00 08/30/17 11:05 Objective Remarks GENERAL: Middle-aged lady, laying in bed, she is awake and alert, she appears to be no acute distress, she is more interactive today. SKIN: No rashes, ecchymoses or lesions. Cool and dry. HEAD: Atraumatic. Normocephalic. No temporal or scalp tenderness. EYES: Pupils equal round and reactive. Extraocular motions intact. No scleral icterus. No injection or drainage. ENT: Nose without bleeding, purulent drainage or septal hematoma. Throat without erythema, tonsillar hypertrophy or exudate. Uvula midline. Airway patent. NECK: Trachea midline. No JVD or lymphadenopathy. Supple, nontender, no meningeal signs. CARDIOVASCULAR: Regular rate and rhythm without murmurs, gallops, or rubs. RESPIRATORY: Good air movement bilaterally with prolonged expiratory phase. Decreased bibasilar breath sounds. GASTROINTESTINAL: Abdomen soft, non-tender, nondistended. No hepato-splenomegaly , or palpable masses. No guarding. MUSCULOSKELETAL: Extremities without clubbing, cyanosis, or edema. No joint tenderness, effusion, or edema noted. No calf tenderness. Negative Homans sign bilaterally. NEUROLOGICAL: Awake and alert. Cranial nerves II through XII intact. Motor and sensory grossly within normal limits. Five out of 5 muscle strength in all muscle groups. Normal speech. Assessment/Plan Assessment Ms. Moncada is a very pleasant 52-year-old female with an extensive past history of tobaccoism. The patient was diagnosed in February 2017 with metastatic small cell carcinoma of the lung with extensive bony metastases. She was treated with 3 cycles of cisplatin and etoposide between February and April 2017. In July 2017 after establishing follow-up with our practice following her relocation from [place] she was treated with cycle 4 day 1 therapy with carboplatin and etoposide. Shortly into the etoposide infusion she developed a severe anaphylactoid type reaction. I did speak to her primary oncologist from [place] who confirmed the patient had similar though less severe reactions in [place] prior to moving down to [place]. She was recommended restaging imaging studies and in July 2017 she was found to have minimally active disease, I was unable to compare actual images to pretreatment images from [place] however based on the descriptive reports sent down it appears she had a good response to treatment. From systemic therapeutic standpoint she had been recommended transition to Topotecan in the second line setting. I had recommended this because she would no longer be a candidate for etoposide. Her major issue over the past several weeks however has been hyponatremia related to SIADH. When the patient's sodium drops down to critical levels she developed symptoms of nausea, vomiting, fatigue and severe headaches. She has now been initiated on tolvaptan, her sodium level has increased since she presented to the emergency department and her symptoms of headaches and nausea have responded. Plan Metastatic small cell carcinoma the lung: Systemic therapy on hold until her acute issues with hyponatremia have resolved. She does have Topotecan tablets at home which will be the systemic chemotherapeutic intervention but she is awaiting stabilization before she starts this. Hyponatremia: Related SIADH. She has responded very well to tolvaptan. We will reduce the dose from 15 mg once daily to 7.5 mg once daily. We will attempt to have this medication approved for outpatient use. If we are unable to have this medication approved a reasonable alternative would be Demeclocycline 600mg to 1200mg po daily. Continue ongoing care and supportive care. Taoy Kamara MD Aug 31, 2017 08:00
[2017-08-31] MEDS ORDERED: [UNRECOGNIZED DRUG - CODE] PO (08:08)
[2017-08-31] MEDS: cefTRIAXone INJ 1,000 MG in SODIUM CHLORIDE 0.9% INJ 100 ML IV SCH (08:27)
[2017-08-31] MEDS: SODIUM CHLORIDE 0.9% FLUSH 10 ML FLUSH IV FLUSH SCH ×2 (08:27→20:58)
[2017-08-31] MEDS: oxyCODONE HCL 40 MG CONTROLLED RELEASE TAB PO SCH ×2 (08:28→20:57)
[2017-08-31] MEDS: FAMOTIDINE 20 MG TAB PO SCH ×2 (08:28→20:57)
[2017-08-31] MEDS: DOCUSATE SODIUM 50 MG/SENNA 8.6 MG TAB PO SCH ×2 (08:28→20:58)
[2017-08-31] MEDS ORDERED: PILL SPLITTER OTHER PRN (08:45)
[2017-08-31] MEDS: TOLVAPTAN 15 MG TAB PO SCH (09:37)
--- NOTE | 2017-08-31 15:05 | HHI.PR ---
Subjective Remarks 52-year-old female here with hyponatremia and uncontrolled nausea vomiting. She has no complaints of nausea today. She complains of dry mouth and chin numbness Objective Vitals Vital Signs Date Time Temp Pulse Resp B/P (MAP) Pulse Ox O2 Delivery O2 Flow Rate FiO2 08/31/17 12:25 96.7 82 18 100/65 (77) 98 08/31/17 08:30 79 08/31/17 08:00 96.4 85 20 123/68 (86) 97 08/31/17 06:05 70 08/31/17 05:00 67 08/31/17 04:02 66 08/31/17 03:13 98.0 71 18 105/63 (77) 99 08/31/17 03:05 64 08/31/17 02:04 65 08/31/17 01:00 68 08/31/17 00:02 68 08/30/17 23:23 98.7 69 18 100/72 (81) 98 08/30/17 23:00 76 08/30/17 22:03 72 08/30/17 21:20 97.7 74 16 107/72 (84) 98 08/30/17 21:01 85 08/30/17 20:06 74 08/30/17 19:03 66 08/30/17 18:37 73 08/30/17 16:45 98.4 66 18 118/65 (82) 100 I/O 08/30/17 08/30/17 08/30/17 08/31/17 08/31/17 08/31/17 07:00 15:00 23:00 07:00 15:00 23:00 Intake Total 1720 ml 100 ml 500 ml 1720 ml Output Total 2950 ml 2250 ml 3400 ml Balance -1230 ml 100 ml -1750 ml -1680 ml Intake Oral 720 ml 500 ml 720 ml IV Total 1000 ml 100 ml 1000 ml Output Urine Total 2950 ml 2250 ml 3400 ml # Bowel Movements 0 1 Result Diagram: 08/28/17 1785 08/31/17 0330 Objective Remarks GENERAL: Well-nourished, well-developed patient.weakened by lung cancer SKIN: Warm and dry. HEAD: Normocephalic. Dry oral mucosa EYES: No scleral icterus. No injection or drainage. NECK: Supple, trachea midline. No JVD or lymphadenopathy. CARDIOVASCULAR: Regular rate and rhythm without murmurs, gallops, or rubs. RESPIRATORY: Breath sounds equal bilaterally. No accessory muscle use. GASTROINTESTINAL: Abdomen soft, non-tender, nondistended. EXTREMITIES: No cyanosis, or edema. NEUROLOGICAL: Awake, alert, and oriented x 3. Non-focal. 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 Cosyntropin stim test normal Samsca had a remarkable impact on sodium, from 117 to 134 Patient now complains of dry mouth and chin numbness (possible side effect), Samsca dose cut in half Appreciate GI assistance Intractable nausea and vomiting Continue Compazine prn Continue bowel regimen with Amitiza and senna Recommended medical marijuana as outpatient Headache Fioricet PRN CT Justin negative Improved as sodium level improved Anxiety Ativan PRN Mild Oropharyngeal dysarthria r/o CVA/mets Tongue deviated to the right, good gag reflex MRI Shows old lacunar infarcts, no acute processes, no tumor 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
[2017-09-01] VITALS (17 sets, daily range): BP systolic 108–154; BP diastolic 43–87; PULSE 58–78; RESP 16–18; TEMP 97.5–98.9; O2SAT 93–100
[2017-09-01] MEDS: ACETAMIN 325 MG/BUTALBITAL 50 MG/CAFFEINE 40 MG TAB PO PRN ×3 (01:45→14:10)
[2017-09-01 05:45] LABS: CALCIUM 8.6 MG/DL (8.5-10.1); CREATININE 0.48 MG/DL (0.50-1.00)
[2017-09-01] MEDS: LORazepam 0.5 MG TAB PO PRN (09:04)
[2017-09-01] MEDS: FAMOTIDINE 20 MG TAB PO SCH (09:04)
[2017-09-01] MEDS: cefTRIAXone INJ 1,000 MG in SODIUM CHLORIDE 0.9% INJ 100 ML IV SCH (09:04)
[2017-09-01] MEDS: DOCUSATE SODIUM 50 MG/SENNA 8.6 MG TAB PO SCH (09:05)
[2017-09-01] MEDS: METHOCARBAMOL 500 MG TAB PO PRN (09:05)
[2017-09-01] MEDS: oxyCODONE HCL 40 MG CONTROLLED RELEASE TAB PO SCH (09:05)
[2017-09-01] MEDS: SODIUM CHLORIDE 0.9% FLUSH 10 ML FLUSH IV FLUSH SCH (09:11)
[2017-09-01] MEDS: TOLVAPTAN 15 MG TAB PO SCH (09:22)
--- NOTE | 2017-09-01 10:31 | PD.ONC.PN ---
Subjective Subjective Remarks Afebrile Anxious to go home States she still has headache Complaining of some numbness around her mouth Objective Data Date Time Temp Pulse Resp B/P (MAP) Pulse Ox O2 Delivery O2 Flow Rate FiO2 09/01/17 08:56 72 18 118/68 (85) 93 09/01/17 06:01 65 09/01/17 05:01 64 09/01/17 04:45 98.9 75 16 118/73 (88) 98 09/01/17 04:00 69 09/01/17 03:05 73 09/01/17 02:51 77 09/01/17 01:02 74 09/01/17 00:10 97.5 09/01/17 00:07 78 09/01/17 00:06 98.5 75 16 150/87 (108) 100 08/31/17 23:08 75 08/31/17 22:03 79 08/31/17 21:07 93 08/31/17 20:49 99.3 67 16 134/84 (101) 97 08/31/17 20:14 76 08/31/17 19:00 79 08/31/17 16:36 82 08/31/17 16:30 97.2 84 18 134/79 (97) 99 08/31/17 12:25 96.7 82 18 100/65 (77) 98 09/01/17 09/01/17 09/01/17 07:00 15:00 23:00 Intake Total 560 ml Output Total 1500 ml Balance -940 ml Result Diagram: 08/28/17 0935 09/01/17 0645 Laboratory Results Laboratory Tests Test 09/01/17 04:45 Blood Urea Nitrogen 3 MG/DL Creatinine 0.48 MG/DL Random Glucose 107 MG/DL Calcium Level 8.6 MG/DL Sodium Level 137 MEQ/L Potassium Level 3.9 MEQ/L Chloride Level 104 MEQ/L Carbon Dioxide Level 25.0 MEQ/L Anion Gap 8 MEQ/L Estimat Glomerular Filtration Rate 135 ML/MIN Administered Medications Medications (Trade) Dose Ordered Sig/Skyler Route PRN Reason Start Time Stop Time Status Last Admin Dose Admin Sodium Chloride (NS Flush) 2 ml UNSCH PRN IV FLUSH FLUSH AFTER USING IV ACCESS 08/28/17 22:15 09/01/17 04:58 Sodium Chloride (NS Flush) 2 ml BID IV FLUSH 08/29/17 09:00 09/01/17 09:11 Famotidine (Pepcid) 20 mg Q12HR PO 08/29/17 09:00 09/01/17 09:04 Senna/Docusate Sodium (Darlene-Colace) 1 tab BID PO 08/29/17 09:00 09/01/17 09:05 Lactulose (Lactulose Liq) 30 ml DAILY PRN PO SEVERE CONSITIPATION 08/28/17 22:15 08/31/17 08:27 Lorazepam (Ativan) 0.5 mg Q8H PRN PO ANXIETY 08/28/17 22:30 09/01/17 09:04 Oxycodone HCl (OxyCONTIN CR) 40 mg Q12HR PO 08/29/17 09:00 09/01/17 09:05 Acetaminophen/ Butalbital/ Caffeine (Fioricet 325-50-40) 1 tab Q4H PRN PO HEADACHE 08/28/17 22:45 09/01/17 09:15 Oxycodone HCl (Roxicodone) 15 mg Q6HR PO 08/29/17 00:00 09/01/17 05:52 Methocarbamol (Robaxin) 750 mg Q8HR PRN PO MUSCLE SPASM 08/29/17 05:30 09/01/17 09:05 Ceftriaxone Sodium 1000 mg/ Sodium Chloride 100 ml @ 200 mls/hr Q24H IV 08/30/17 08:00 09/01/17 09:04 Sodium Chloride (NS Flush) 5 ml UNSCH PRN IV FLUSH SEE PROTOCOL TABLE 08/30/17 09:00 09/01/17 04:59 Heparin Sodium (Porcine) (Heparin Central Flush) 250 units UNSCH PRN IV FLUSH SEE PROTOCOL TABLE 08/30/17 09:00 09/01/17 04:59 Tolvaptan (Samsca) 7.5 mg DAILY PO 08/31/17 09:00 09/01/17 09:22 Miscellaneous (Pill Splitter) 1 ea UNSCH PRN OTHER SEE LABEL COMMENTS 08/31/17 08:45 09/01/17 09:06 Objective Remarks GENERAL: Older female resting in bed in no obvious distress SKIN: Warm and dry. HEAD: Normocephalic. EYES: No scleral icterus. No injection or drainage. NECK: Supple, trachea midline. No JVD or lymphadenopathy. CARDIOVASCULAR: Regular rate and rhythm without murmurs. RESPIRATORY: Clear but diminished anteriorly. GASTROINTESTINAL: Abdomen soft, non-tender, nondistended. EXTREMITIES: No cyanosis, or edema. MUSCULOSKELETAL: Adequate muscle tone. NEUROLOGICAL: Awake and alert. Normal speech. Tongue deviates to the right. Assessment/Plan Assessment Ms. Moncada is a very pleasant 52-year-old female with an extensive past history of tobaccoism. The patient was diagnosed in February 2017 with metastatic small cell carcinoma of the lung with extensive bony metastases. She was treated with 3 cycles of cisplatin and etoposide between February and April 2017. In July 2017 after establishing follow-up with our practice following her relocation from [place] she was treated with cycle 4 day 1 therapy with carboplatin and etoposide. Shortly into the etoposide infusion she developed a severe anaphylactoid type reaction. I did speak to her primary oncologist from [place] who confirmed the patient had similar though less severe reactions in [place] prior to moving down to [place]. She was recommended restaging imaging studies and in July 2017 she was found to have minimally active disease, I was unable to compare actual images to pretreatment images from [place] however based on the descriptive reports sent down it appears she had a good response to treatment. From systemic therapeutic standpoint she had been recommended transition to Topotecan in the second line setting. I had recommended this because she would no longer be a candidate for etoposide. Her major issue over the past several weeks however has been hyponatremia related to SIADH. When the patient's sodium drops down to critical levels she developed symptoms of nausea, vomiting, fatigue and severe headaches. She has now been initiated on tolvaptan, her sodium level has increased since she presented to the emergency department and her symptoms of headaches and nausea have responded. Plan 1. Discuss future chemo outpatient once acute issues with hyponatremia have completely resolved. 2. Received a call from the pharmacist at [facility] the patient will have to get the tolvaptan from a specialty pharmacy; discussed with case management and the inpatient pharmacist at rounds. 3. Clear for discharge once the patient has access to tolvaptan 7.5 mg once daily. Katerine Brooke Sep 01, 2017 10:30
[2017-09-01] MEDS ORDERED: oxyCODONE HCL 40 MG CONTROLLED RELEASE TAB PO SCH (14:00)
--- NOTE | 2017-09-01 15:58 | HHI.PR ---
Subjective Remarks Patient states that she is having a rough day emotionally. She is starting to feel better but spent the morning quite depressed feeling a loss of control over her life. She denies any nausea vomiting. She only complains of dry mouth and numbness of her chin, both which began when her sodium returned to normal fairly rapidly on the new medication. Objective Vitals Vital Signs Date Time Temp Pulse Resp B/P (MAP) Pulse Ox O2 Delivery O2 Flow Rate FiO2 09/01/17 15:10 18 09/01/17 14:04 18 09/01/17 13:02 154/65 (94) 09/01/17 12:51 98.4 62 18 137/43 (74) 99 09/01/17 11:55 63 09/01/17 10:15 18 09/01/17 10:15 18 09/01/17 08:56 72 18 118/68 (85) 93 09/01/17 08:00 66 09/01/17 06:01 65 09/01/17 05:01 64 09/01/17 04:45 98.9 75 16 118/73 (88) 98 09/01/17 04:00 69 09/01/17 03:05 73 09/01/17 02:51 77 09/01/17 01:02 74 09/01/17 00:10 97.5 09/01/17 00:07 78 09/01/17 00:06 98.5 75 16 150/87 (108) 100 08/31/17 23:08 75 08/31/17 22:03 79 08/31/17 21:07 93 08/31/17 20:49 99.3 67 16 134/84 (101) 97 08/31/17 20:14 76 08/31/17 19:00 79 08/31/17 16:36 82 08/31/17 16:30 97.2 84 18 134/79 (97) 99 I/O 08/31/17 08/31/17 08/31/17 09/01/17 09/01/17 09/01/17 07:00 15:00 23:00 07:00 15:00 23:00 Intake Total 1720 ml 100 ml 1525 ml 560 ml Output Total 3400 ml 1300 ml 1500 ml Balance -1680 ml 100 ml 225 ml -940 ml Intake Oral 720 ml 760 ml 560 ml IV Total 1000 ml 100 ml 765 ml Output Urine Total 3400 ml 1300 ml 1500 ml # Bowel Movements 0 1 1 Result Diagram: 08/28/17 1555 09/01/17 0445 Objective Remarks GENERAL: Well-nourished, well-developed patient.weakened by lung cancer SKIN: Warm and dry. HEAD: Normocephalic. Dry oral mucosa EYES: No scleral icterus. No injection or drainage. NECK: Supple, trachea midline. No JVD or lymphadenopathy. CARDIOVASCULAR: Regular rate and rhythm without murmurs, gallops, or rubs. RESPIRATORY: Breath sounds equal bilaterally. No accessory muscle use. GASTROINTESTINAL: Abdomen soft, non-tender, nondistended. EXTREMITIES: No cyanosis, or edema. NEUROLOGICAL: Awake, alert, and oriented x 3. Non-focal. PSYCH: Depressed affect, tearful A/P Assessment and Plan 52 years old female with Lung Cancer Metastatic small cell lung cancer Managing chronic pain with oxycontin and oxycodone Patient states her pain is not adequately controlled, OxyContin increased from 40 mg twice daily to 3 times daily Patient will need to have good control of her nausea in order to tolerate p.o. 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 Cosyntropin stim test normal Samsca had a remarkable impact on sodium, from 117 to 137 in 2 days Patient complains of dry mouth and chin numbness Appreciate GI assistance Intractable nausea and vomiting Mostly resolved now that sodium is controlled Continue Compazine prn Continue bowel regimen with Amitiza and senna Recommended medical marijuana as outpatient Depression/Anxiety Patient has had a lot of change to adjust to and has been tearful on more than one day here She clinically fits the diagnosis of depression but declined my offer for Zoloft She prefers to treat her anxiety with Ativan Headache Fioricet PRN CT Justin negative Improved as sodium level improved Anxiety Ativan PRN Mild Oropharyngeal dysarthria r/o CVA/mets Tongue deviated to the right, good gag reflex MRI Shows old lacunar infarcts, no acute processes, no tumor 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
[2017-09-01] MEDS ORDERED: OXYC40TA20 PO (18:58)
[2017-09-01] MEDS ORDERED: OXYC-392 PO (18:58)
--- NOTE | 2017-09-01 19:02 | HHI.DS ---
Discharge Summary Admission Date Aug 28, 2017 at 19:16 Discharge Date: Sep 01, 2017 Admitting Diagnosis severe hyponatremia, Nausea and vomit, lung cancer (1) Hyponatremia ICD Code: E87.1 - Hypo-osmolality and hyponatremia Status: Chronic (2) Nausea & vomiting ICD Code: R11.2 - Nausea with vomiting, unspecified Status: Acute Procedures none Brief History - From Admission [facility] consulted for admission for nausea/vomiting with hyponatremia. 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 She was living in [place] at the time and underwent chemotherapy there. She is originally from this area and relocated here in May and has been under the care of Dr. Kamara. She states that she has not been able to tolerate a couple of chemotherapy agents, stating that she experienced anaphylaxis. Therefore, she has not been on palliative chemotherapy since sometime in July. She has been having daily nausea and vomiting for a couple of weeks. Symptoms initially started after she initiated fentanyl patch which has since been discontinued. She states her nausea is a little bit better than it was but she still vomits 1-2 times per day nonbloody nonbilious and not is not able to take in very much to eat or drink. She has been taking Compazine but without complete relief. She has some mild epigastric discomfort and some abdominal pain in LLQ abdomen where she has ecchymosis from subcut heparin injection. She states that she has been having a constant throbbing headache primarily on the right side of her head for the last 2 weeks associated with some photophobia; not worse on standing or awakening. No phonophobia. She has been dizzy. She denies prior history of headaches. She states she had an appointment with Dr. Kamara yesterday and states MRI brain was ordered and she was supposed to followup; she mentions possible discussion of hospice. ED discussed with hospitalist for admission but CCM admission was requested due to sodium 110. Patient is alert, no seizures. 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 She may also have adrenal insufficiency. CBC/BMP: 08/28/17 1555 09/01/17 0445 Significant Findings Laboratory Tests Test 08/30/17 04:10 08/31/17 03:30 09/01/17 04:45 Blood Urea Nitrogen 5 MG/DL (7-18) 3 MG/DL (7-18) Creatinine 0.38 MG/DL (0.50-1.00) 0.48 MG/DL (0.50-1.00) Calcium Level 7.9 MG/DL (8.5-10.1) 8.4 MG/DL (8.5-10.1) Sodium Level 117 MEQ/L (136-145) 134 MEQ/L (136-145) Potassium Level 3.2 MEQ/L (3.5-5.1) Chloride Level 85 MEQ/L (98-107) Random Glucose 125 MG/DL (74-106) 107 MG/DL (74-106) PE at Discharge GENERAL: Well-nourished, well-developed patient.weakened by lung cancer SKIN: Warm and dry. HEAD: Normocephalic. Dry oral mucosa EYES: No scleral icterus. No injection or drainage. NECK: Supple, trachea midline. No JVD or lymphadenopathy. CARDIOVASCULAR: Regular rate and rhythm without murmurs, gallops, or rubs. RESPIRATORY: Breath sounds equal bilaterally. No accessory muscle use. GASTROINTESTINAL: Abdomen soft, non-tender, nondistended. EXTREMITIES: No cyanosis, or edema. NEUROLOGICAL: Awake, alert, and oriented x 3. Non-focal. PSYCH: Depressed affect, tearful Hospital Course 52-year-old female with lung cancer presented with intractable nausea and vomiting and hyponatremia. She responded slowly to standard therapy so Samsca was added which resolved her hyponatremia within 1 day. As a result of sodium going from 117 to 137 within 48 hours she experienced some dry lips, dry mouth, numbness of her chin. Her nausea and vomiting is a subsided, she is taking adequate p.o., her hyponatremia is resolved. She is stable for discharge home with follow-up with her oncologist, plan is to place her on p.o. chemotherapy to treat her lung cancer. She is requesting to be discharged tonight. She has a bottle of Samsca, but states she is out of her chronic pain meds OxyContin and oxycodone. Pt Condition on Discharge: Good Discharge Disposition: Discharge Home Discharge Time: <= 30 minutes Discharge Instructions DIET: Follow Instructions for: As Tolerated, No Restrictions Activities you can perform: Weight Bearing as Douglas Brody MD Sep 01, 2017 19:02
== END 2017-09-01 19:58 | disposition home or self-care (01) | DRG 644 ==
LOC: NEPE 14:48 → NEDA 19:16 → HCIN 22:43
PROVIDERS: ADMIT Family Medicine; ATTEND Family Medicine
DX: E22.2 Syndrome of inappropriate secretion of antidiuretic hormone (principal); C34.90 Malignant neoplasm of unspecified part of unspecified bronchus or lung; C79.51 Secondary malignant neoplasm of bone; R11.2 Nausea with vomiting, unspecified; M54.5 Low back pain; R03.0 Elevated blood-pressure reading, without diagnosis of hypertension; R10.32 Left lower quadrant pain; R47.1 Dysarthria and anarthria; R51 Headache; R68.2 Dry mouth, unspecified; F17.210 Nicotine dependence, cigarettes, uncomplicated; F32.9 Major depressive disorder, single episode, unspecified; F41.9 Anxiety disorder, unspecified; G47.30 Sleep apnea, unspecified; G89.3 Neoplasm related pain (acute) (chronic); K21.9 Gastro-esophageal reflux disease without esophagitis; K59.00 Constipation, unspecified; T50.995A Adverse effect of other drugs, medicaments and biological substances, initial encounter; Z79.891 Long term (current) use of opiate analgesic; Z87.442 Personal history of urinary calculi; Z90.49 Acquired absence of other specified parts of digestive tract; Z88.5 Allergy status to narcotic agent; Z88.8 Allergy status to other drugs, medicaments and biological substances; Z91.041 Radiographic dye allergy status
CPT/HCPCS: 70450; 70553; 71045; 80048; 80053; 81001; 82533; 83690; 83735; 83935; 84295; 84439; 84443; 84481; 85025; 85610; 85730; 87040; 87077; 87086; 87186; 93005; 96361; 96365; 96375; A9579; J0696; J0780; J0834; J1170; J1200; J1642; J2060; J2765; J7030